=== PATIENT | female | born 1960 | race Caucasian/White ===

== ENCOUNTER 2021-12-04 23:34 | Inpatient (IN) | payer BC, SELFPAY ==
--- NOTE | ~2021-12-04 | XR_ITS ---
EXAMINATION: XR CHEST CLINICAL INFORMATION: Fever COMPARISON: None TECHNIQUE: Frontal view of the chest was obtained. FINDINGS: Lung volumes are symmetric. No focal consolidation is seen. No evidence of pneumothorax, pleural effusion, or pulmonary edema. The cardiomediastinal contour is unremarkable. Degenerative changes are noted in the spine. XR/XR chest 1V IMPRESSION: No acute cardiopulmonary findings.
[2021-12-04 21:47] VITALS: BP 138/67; BP 152/86; PULSE 135; PULSE 140; RESP 28; TEMP 40.2; O2SAT 92; O2SAT 95; BMI 30.4
--- NOTE | 2021-12-04 21:54 | ED_ITS ---
HPI - General Adult General Chief complaint: Fever Stated complaint: nausea, weakness, fever Time Seen by Provider: 12/04/21 21:45 Source: patient and EMS Mode of arrival: EMS Limitations: no limitations History of Present Illness HPI narrative: Patient comes to the emergency room via EMS from home. This weekend, patient was in [facility] and a team this morning, ate breakfast and was doing well until 4 hours ago. Patient started having fever, chills, vomiting. Patient denies URI or UTI symptoms, no abdominal pain, only nausea and 1 episode of vomiting, no diarrhea. Per EMS, the temporal temperature was 104 degrees F. patient states she is immunized for COVID-19. Patient complaining of nausea and chills. Denies headache, no neck pain Related Data Allergies Allergy/AdvReac Type Severity Reaction Status Date / Time No Known Allergies Allergy Verified 12/04/21 22:14 Review of Systems Review of Systems: Constitutional : No Weight loss, complaining of fever, chills, diaphoresis, fatigue and generalized malaise ENT/Mouth : No Hearing loss, No Ear Pain, No Nasal Congestion, No Sinus Pain, No Hoarseness, No sore throat, No Rhinorrhea, No Swallowing Difficulty Eyes: No Eye Pain, No Swelling, No Redness, No Foreign Body, No Discharge, No Vision Changes Cardiovascular : No Chest Pain, No SOB, No Dyspnea on Exertion, No Orthopnea, No Edema, No Palpitations Respiratory : No Cough, No Sputum, No Wheezing, No Smoke Exposure, No Dyspnea Gastrointestinal : Complaining of nausea and 1 episode of vomiting, No Diarrhea, No Constipation, No abdominal Pain, No Hematochezia, No Melena Genitourinary : no irregular bleeding, No Dysuria, No Urinary Frequency, No Hematuria, No Urinary Incontinence, No Urgency, No Flank Pain, No Urinary Flow Changes, No Hesitancy Musculoskeletal : No joint pain, No Myalgias, No Joint Swelling Skin : No Skin Lesions, No rash Neuro : No Weakness, No Numbness, No Paresthesias, No Loss of Consciousness, No Dizziness, No Headache Psych : No Anxiety/Panic, No Depression, No SI/HI/AH/VH, No Social Issues, Heme/Lymph: No Bruising, No Bleeding,No Lymphadenopathy Endocrine : No Polyuria, No Polydipsia, No Temperature Intolerance [facility] Past Medical History Medical History (Updated 12/04/21 @ 23:26 by Tata Paulino MD) Hypertension Physical Exam ED Vital Signs: Vital Signs - 24 hr 12/04/21 21:47 12/04/21 22:15 12/04/21 22:40 Temperature 104.4 F H 105.1 F H Pulse Rate 135 H 129 H Respiratory Rate 28 H 16 Blood Pressure 138/67 90/21 L Pulse Oximetry 92 97 Oxygen Delivery Method Room Air Room Air 12/04/21 23:03 Temperature Pulse Rate 125 H Respiratory Rate 18 Blood Pressure 103/41 L Pulse Oximetry 97 Oxygen Delivery Method Room Air BMI result Body Mass Index 30.4 Const Other: Appearance: Alert. Oriented X3. Seems uncomfortable, nauseous Eyes: Pupils equal, round and reactive to light. ENT: Pharynx normal. Neck: Normal inspection. Neck supple. No lymph nodes noted. No crepitus CVS: Normal heart rate and rhythm. Pulses normal. Normal S1 and S2 Respiratory: No respiratory distress. Breath sounds normal. No Wheezing. No rales Abdomen: Soft and nontender. No rigidity. No distention. Skin: Skin very warm to touch, clammy. Mildly pale,. Normal skin turgor. Extremities: No lower extremity edema. No Lacerations. No Rash Neuro: Oriented X 3. No motor deficit. No sensory deficit. Moving all extremities. No slurred speech. CN 2 through 12 grossly intact Psych: calm, cooperative, normal affect Course Course Course Narrative: At this time, we do not have any beds. We have started all the workup in the hallway, all the labs and imaging pending. Unable to obtain rectal temperature at this time. Patient received IV fluids 600 mL and Zofran by EMS, patient is getting fluid now. Patient getting Compazine here. At this time, so her infection is unclear, may be viral. We don't have vitals yet Patient lactic acid secondary to dehydration, vomiting. At this time, antibiotics are not indicated, patient known to have COVID-19. Patient has had a rectal temperature of 105.1 degrees, patient currently has ice packs in the axilla, groin and has a cooling blanket on. Patient was given a dose of rectal Tylenol and p.o. ibuprofen. Potassium was replaced p.o., patient receiving IV fluids. I discussed the patient with Dr. Adkins. Patient to be admitted Medical Decision Making Lab Data Result diagrams: 12/04/21 22:10 12/04/21 22:10 Labs: Lab Results 12/04/21 12/04/21 12/04/21 Range/Units 22:10 22:10 22:10 WBC 5.0 (4.8-10.8) X10*3/uL RBC 3.67 L (4.20-5.50) X10*6/uL Hgb 11.0 L (12.0-16.0) g/dl Hct 32.1 L (37.0-47.0) % MCV 87.5 (80.0-98.0) fL MCH 30.0 (27.0-33.0) pg MCHC 34.3 (31.0-35.0) g/dl RDW 12.3 (11.0-16.0) % Plt Count 318 (160-400) X10*3/uL MPV 8.6 L (9.4-12.3) fL Immature Gran % (Auto) 0.4 (0.0-0.4) % Neut % (Auto) 76.3 H (45-73) % Lymph % (Auto) 13.1 L (20-40) % [place] % (Auto) 7.0 (2-11) % Eos % (Auto) 2.6 (0-4) % Baso % (Auto) 0.6 (0-2) % Lymph # (Auto) 0.7 L (1.2-4.9) X10*3/uL [place] # (Auto) 0.4 (0.1-1.2) X10*3/uL Eos # (Auto) 0.1 (0.0-0.4) X10*3/uL Baso # (Auto) 0.0 (0.0-0.2) X10*3/uL Abs Immat Gran (auto) 0.02 (0.00-0.03) X10*3/uL Absolute Neuts (auto) 3.8 (2.0-8.3) x10*3/uL Absolute Nucleated RBC 0.000 (0.0-0.012) X10*3/uL Nucleated RBC % (auto) 0.0 (0.0-0.2) /100WBC Sodium 134 L (135-145) mmol/L Potassium 3.2 L (3.3-5.1) mmol/L Chloride 99 (96-108) mmol/L Carbon Dioxide 24 (22-29) mmol/L Anion Gap 14 (12-20) BUN 20 H (9-16) mg/dL Creatinine 1.66 H (0.5-1.4) mg/dL Estim Creat Clear Calc 36.8 Estimated GFR 31 Random Glucose 107 (60-115) mg/dL Lactic Acid (0.5-2.0) mmol/L Calcium 9.4 (8.4-10.2) mg/dL Total Bilirubin 0.5 (0.0-1.0) mg/dL Direct Bilirubin 0.2 (0.0-0.5) mg/dL AST 25 (5-31) U/L ALT 19 (0-31) U/L Alkaline Phosphatase 55 (39-117) U/L Total Protein 6.8 (6.5-8.0) g/dL Albumin 4.3 (3.5-5.0) g/dL Urine Color Urine Appearance Urine pH (5.0-8.0) Ur Specific [place] (1.005-1.025) Urine Protein (NEG-TRACE) MG/DL Urine Glucose (UA) (NEG) MG/DL Urine Ketones (NEG) MG/DL Urine Blood (NEG) Urine Nitrite (NEG) Ur Leukocyte Esterase (NEG) COVID-19 ([facility]) Positive A (Negative) COVID-19 Clin Com See Note 12/04/21 12/04/21 Range/Units 22:11 22:48 WBC (4.8-10.8) X10*3/uL RBC (4.20-5.50) X10*6/uL Hgb (12.0-16.0) g/dl Hct (37.0-47.0) % MCV (80.0-98.0) fL MCH (27.0-33.0) pg MCHC (31.0-35.0) g/dl RDW (11.0-16.0) % Plt Count (160-400) X10*3/uL MPV (9.4-12.3) fL Immature Gran % (Auto) (0.0-0.4) % Neut % (Auto) (45-73) % Lymph % (Auto) (20-40) % [place] % (Auto) (2-11) % Eos % (Auto) (0-4) % Baso % (Auto) (0-2) % Lymph # (Auto) (1.2-4.9) X10*3/uL [place] # (Auto) (0.1-1.2) X10*3/uL Eos # (Auto) (0.0-0.4) X10*3/uL Baso # (Auto) (0.0-0.2) X10*3/uL Abs Immat Gran (auto) (0.00-0.03) X10*3/uL Absolute Neuts (auto) (2.0-8.3) x10*3/uL Absolute Nucleated RBC (0.0-0.012) X10*3/uL Nucleated RBC % (auto) (0.0-0.2) /100WBC Sodium (135-145) mmol/L Potassium (3.3-5.1) mmol/L Chloride (96-108) mmol/L Carbon Dioxide (22-29) mmol/L Anion Gap (12-20) BUN (9-16) mg/dL Creatinine (0.5-1.4) mg/dL Estim Creat Clear Calc Estimated GFR Random Glucose (60-115) mg/dL Lactic Acid 2.1 H* (0.5-2.0) mmol/L Calcium (8.4-10.2) mg/dL Total Bilirubin (0.0-1.0) mg/dL Direct Bilirubin (0.0-0.5) mg/dL AST (5-31) U/L ALT (0-31) U/L Alkaline Phosphatase (39-117) U/L Total Protein (6.5-8.0) g/dL Albumin (3.5-5.0) g/dL Urine Color YELLOW Urine Appearance CLEAR Urine pH 5.5 (5.0-8.0) Ur Specific [place] 1.020 (1.005-1.025) Urine Protein NEG (NEG-TRACE) MG/DL Urine Glucose (UA) NEG (NEG) MG/DL Urine Ketones NEG (NEG) MG/DL Urine Blood NEG (NEG) Urine Nitrite NEG (NEG) Ur Leukocyte Esterase NEG (NEG) COVID-19 ([facility]) (Negative) COVID-19 Clin Com Imaging Data Chest x-ray: Radiologist's impression: FINDINGS: Lung volumes are symmetric. No focal consolidation is seen. No evidence of pneumothorax, pleural effusion, or pulmonary edema. The cardiomediastinal contour is unremarkable. Degenerative changes are noted in the spine. XR/XR chest 1V IMPRESSION: No acute cardiopulmonary findings. Discharge Plan Discharge Clinical Impression: COVID-19, NORMAN (acute kidney injury), Acute hypokalemia Patient Disposition: Admitted As Inpatient
[2021-12-04] MEDS: 0.9 % Sodium Chloride 1,000 ML 999 ML IVCONT ×2 (22:14→23:29)
[2021-12-04 22:15] VITALS: TEMP 40.6
[2021-12-04 22:18] LABS: MANUAL DIFF FLAG NO
[2021-12-04 22:20] LABS: Basophils Percent Auto 0.6 % (0-2); Eosinophils Absolute Auto 0.1 X10*3/uL (0.0-0.4); Eosinophils Percent Auto 2.6 % (0-4); Hematocrit 32.1 % (37.0-47.0); Imm Gran Abs Auto 0.02 X10*3/uL (0.00-0.03); Imm Gran Pct Auto 0.4 % (0.0-0.4); Lymphocytes Absolute Auto 0.7 X10*3/uL (1.2-4.9); Lymphocytes Percent Auto 13.1 % (20-40); Mean Corpuscular HGB Conc 34.3 g/dl (31.0-35.0); Mean Corpuscular Volume 87.5 fL (80.0-98.0); Mean Platelet Volume 8.6 fL (9.4-12.3); Monocytes Absolute Auto 0.4 X10*3/uL (0.1-1.2); Neutrophils Absolute Auto 3.8 x10*3/uL (2.0-8.3); Neutrophils Percent Auto 76.3 % (45-73); Platelet Count 318 X10*3/uL (160-400); Red Blood Count 3.67 X10*6/uL (4.20-5.50); Red Cell Distribution Width 12.3 % (11.0-16.0)
[2021-12-04] MEDS: Prochlorperazine Edisylate 10 MG/2 ML VIAL IVPUSH (22:22)
[2021-12-04 22:28] LABS: COVID-19 Test Positive (Negative)
[2021-12-04 22:39] LABS: Alanine Aminotransferase 19 U/L (0-31); Albumin Level 4.3 g/dL (3.5-5.0); Alkaline Phosphatase 55 U/L (39-117); Anion Gap 14 (12-20); Aspartate Amino Transferase 25 U/L (5-31); Bilirubin Direct 0.2 mg/dL (0.0-0.5); Bilirubin Total 0.5 mg/dL (0.0-1.0); Blood Urea Nitrogen 20 mg/dL (9-16); Calcium 9.4 mg/dL (8.4-10.2); Carbon Dioxide 24 mmol/L (22-29); Chloride 99 mmol/L (96-108); Creatinine Clr Calc Pharmacy 36.8; Estimated Glomerular Filt Rate 31; Glucose Random 107 mg/dL (60-115); Potassium 3.2 mmol/L (3.3-5.1); Sodium 134 mmol/L (135-145); Total Protein 6.8 g/dL (6.5-8.0)
[2021-12-04 22:39] LABS: Lactic Acid 2.1 mmol/L (0.5-2.0)
[2021-12-04 22:40] VITALS: BP 90/21; PULSE 129; RESP 16; O2SAT 97
[2021-12-04] MEDS: Acetaminophen Supp 650 MG SUPP.RECT PR (22:53)
[2021-12-04] MEDS: Ibuprofen 600 MG TABLET PO (22:53)
[2021-12-04 23:03] VITALS: BP 103/41; PULSE 125; RESP 18; O2SAT 97
[2021-12-04 23:03] LABS: Appearance Urine CLEAR; Color Urine YELLOW; Glucose Urine UA NEG (NEG); Leukocyte Esterase Urine NEG (NEG); Nitrite Urine NEG (NEG); PH 5.5 (5.0-8.0); Urine Blood NEG (NEG); Urine Ketones NEG (NEG); Urine Protein NEG (NEG-TRACE)
--- NOTE | 2021-12-04 23:07 | PC.NURSE ---
Addendum entered by Katy Dawson 12/05/21 00:05: report given to SHON Mota Original Note: pt arrived alert and oriented from home via ambulace. pt medic, pt had sudden onset of chills, along with nausea and vomiting and fever. pt temp temp above 104. pt received 600ml of NS and 4mg of IVP zofran. pt started on second line. rectal temp of 105.1 Dr. Claudio jose, verbal order for cooling blanket. pt immediately started on continuos cardiac monitoring . ice pack applied to the groins
--- NOTE | 2021-12-04 23:22 | ECG_ITS ---
Test Reason : REPEAT Blood Pressure : / mmHG Vent. Rate : 125 BPM Atrial Rate : 000 BPM P-R Int : 000 ms QRS Dur : 080 ms QT Int : 412 ms P-R-T Axes : 000 078 059 degrees QTc Int : 594 ms Sinus tachycardia Nonspecific ST and T wave abnormality Abnormal ECG No previous ECGs available Referred By: Tata Paulino Electronically Signed By:LONNIE DELGADILLO MD
[2021-12-05 00:16] LABS: Reflex Lactate? Lactic Acid Added
[2021-12-05 01:55] LABS: ~Lactic Acid-LAB USE ONLY 0.7 mmol/L (0.5-2.0)
--- NOTE | 2021-12-05 06:40 | PM.IMHP ---
History of Present Illness Date of Service: 12/05/21 Chief Complaint: weakness, chills This is a 61-year-old female with past medical history of hypertension presents to the hospital with complaints of chills, weakness, along with nausea vomiting and fever that started about a day ago. Patient is significantly weak, she is slightly confused although able to answer questions appropriately. Patient reports she had sudden onset shivering and chills. Patient reports being vaccinated against COVID-19. Patient denies any chest pain, no shortness of breath, no cough, no abdominal pain, no diarrhea or constipation, no urinary symptoms and no lower extremity edema. On arrival to the ED patient found to have a temperature of 104.4 that spiked to 105.1, heart rate of 135 sinus, respiratory rate of 28 , patient was also found to be hypertensive with a blood pressure of 90/21 satting 97% on room air Labs are significant for WBC count 5.0, hemoglobin of 11, hematocrit 32, sodium of 134, potassium 3.2, creatinine of 1.66 with no baseline for comparison, lactic acid of 2.1, COVID-19 positive. Chest x-ray shows no acute cardiopulmonary findings Patient will be admitted for further management Review of Systems Review of Systems: Yes all other systems are reviewed and are negative [facility] Medical History (Updated 12/05/21 @ 06:45 by Chandrika Adkins MD) Hypertension Family History (Updated 12/05/21 @ 06:44 by Chandrika Adkins MD) Other No family history of coronary artery disease Surgical History (Updated 12/05/21 @ 06:44 by Chandrika Adkins MD) No pertinent past surgical history Social History Advance Directives: No Advance Directives Information Provided: Yes Meds Allergies Allergy/AdvReac Type Severity Reaction Status Date / Time No Known Allergies Allergy Verified 12/04/21 22:14 Active Medications: Current Medications Acetaminophen (Acetaminophen 325 Mg Tablet) 650 mg PO Q6H PRN PRN Reason: Pain, Mild (Pain Scale 1-3) Docusate Sodium (Docusate Sodium 100 Mg Capsule) 100 mg PO DAILY PRN PRN Reason: Constipation Enoxaparin Sodium (Enoxaparin Sodium 40 Mg/0.4 Ml Syringe) 40 mg SUBCUT Q24H EK[facility] Ondansetron HCl (Ondansetron Hcl 4 Mg/2 Ml Vial) 4 mg IVPUSH Q8H PRN PRN Reason: Nausea and Vomiting Sodium Chloride (0.9 % Sodium Chloride Flush 3 Ml Syringe) 3 ml IVFLUSH QSHIFT EK[facility] Physical Exam Vital Signs and Narrative: Vital Signs: Last Vital Signs Temp 105.1 F H 12/04/21 22:15 Pulse 125 H 12/04/21 23:03 Resp 18 12/04/21 23:03 BP 103/41 L 12/04/21 23:03 Pulse Ox 97 12/04/21 23:03 O2 Del Method 12/04/21 23:03 BMI result Body Mass Index 30.4 Const: Other: Patient attempted to get out of bed to use the bathroom but was unable to due to significant weakness. General: cooperative and no acute distress Eyes: General: appearance normal, both eyes and all related structures Resp: Effort & Inspection: normal respiratory effort Auscultation: clear to auscultation bilaterally Cardio: Rate: regular rate Rhythm: regular rhythm GI: Palpation (GI): Soft to palpation Auscultation: normal bowel sounds Skin: General skin exam: no rashes or lesions noted Extrem: General: Yes normal to inspection and Yes no pedal edema Results Labs CBC and Chem 7: 12/04/21 22:10 12/04/21 22:10 Labs: Laboratory Results - last 24 hr 12/04/21 12/04/21 12/04/21 22:10 22:10 22:10 MCV 87.5 MCH 30.0 MCHC 34.3 RDW 12.3 Plt Count 318 MPV 8.6 L Immature Gran % (Auto) 0.4 Neut % (Auto) 76.3 H Lymph % (Auto) 13.1 L [place] % (Auto) 7.0 Eos % (Auto) 2.6 Baso % (Auto) 0.6 Lymph # (Auto) 0.7 L [place] # (Auto) 0.4 Eos # (Auto) 0.1 Baso # (Auto) 0.0 Abs Immat Gran (auto) 0.02 Absolute Neuts (auto) 3.8 Absolute Nucleated RBC 0.000 Nucleated RBC % (auto) 0.0 Anion Gap 14 Estim Creat Clear Calc 36.8 Estimated GFR 31 Random Glucose 107 Lactic Acid Lactic Acid F/U @ 2Hr Calcium 9.4 Total Bilirubin 0.5 Direct Bilirubin 0.2 AST 25 ALT 19 Alkaline Phosphatase 55 Total Protein 6.8 Albumin 4.3 Urine Color Urine Appearance Urine pH Ur Specific [place] Urine Protein Urine Glucose (UA) Urine Ketones Urine Blood Urine Nitrite Ur Leukocyte Esterase COVID-19 ([facility]) Positive A COVID-19 Clin Com See Note 12/04/21 12/04/21 12/05/21 22:11 22:48 01:37 MCV MCH MCHC RDW Plt Count MPV Immature Gran % (Auto) Neut % (Auto) Lymph % (Auto) [place] % (Auto) Eos % (Auto) Baso % (Auto) Lymph # (Auto) [place] # (Auto) Eos # (Auto) Baso # (Auto) Abs Immat Gran (auto) Absolute Neuts (auto) Absolute Nucleated RBC Nucleated RBC % (auto) Anion Gap Estim Creat Clear Calc Estimated GFR Random Glucose Lactic Acid 2.1 H* Lactic Acid F/U @ 2Hr 0.7 Calcium Total Bilirubin Direct Bilirubin AST ALT Alkaline Phosphatase Total Protein Albumin Urine Color YELLOW Urine Appearance CLEAR Urine pH 5.5 Ur Specific [place] 1.020 Urine Protein NEG Urine Glucose (UA) NEG Urine Ketones NEG Urine Blood NEG Urine Nitrite NEG Ur Leukocyte Esterase NEG COVID-19 ([facility]IS) COVID-19 Clin Com Imaging Radiologist's Impressions: Impressions Chest X-Ray 12/04/21 23:14 IMPRESSION: No acute cardiopulmonary findings. Assessment and Plan (1) Sepsis: Status: Acute (2) COVID-19: Status: Acute (3) NORMAN (acute kidney injury): Status: Acute (4) Acute hypokalemia: Status: Acute Plan 61-year-old female who presents to the hospital with tachycardia, tachypnea, as well as fever found to have sepsis secondary to COVID-19 infection # sepsis - febrile, leukocytosis, tachycardia, tachypnea - secondary to COVID-19 infection - has no other source of infection at this time, with chest x-ray being negative, UA negative - will consult Infectious Disease for remdesivir consideration # COVID-19 infection - no hypoxia, no chest x-ray evidence of infiltrate - supportive care at this time, pending infectious disease consult for possible Redmesivir # NORMAN - likely secondary to dehydration - IVF - daily BMP BMP # acute hyperkalemia - repleted - follow labs DVT prophylaxis: Lovenox Given the severity of symptoms, and sepsis patient will require minimal 2 night hospital stay for further management Quality Stroke Does the patient have a stroke diagnosis?: No VTE Prior VTE?: No VTE Risk Level:: Medical - moderate - high VTE Device Contraindication: N/A - Device Ordered VTE Drug Contraindication: N/A - Med Ordered
--- NOTE | 2021-12-05 09:37 | PHA.MEDREC ---
Pharmacy Consult ? Medication Reconciliation Pharmacy has completed the medication reconciliation. Spoke with patient . patient is no longer on lisinopril for BP only chlorthalidone because BP has been low
[2021-12-05 10:00] VITALS: BP 122/73; PULSE 82; RESP 20; TEMP 37; O2SAT 100
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
[2021-12-05 11:59] LABS: MANUAL DIFF FLAG NO
[2021-12-05 12:00] LABS: Eosinophils Percent Auto 1.4 % (0-4); Hematocrit 28.4 % (37.0-47.0); Hemoglobin 9.7 g/dl (12.0-16.0); Imm Gran Abs Auto 0.01 X10*3/uL (0.00-0.03); Imm Gran Pct Auto 0.3 % (0.0-0.4); Lymphocytes Absolute Auto 0.6 X10*3/uL (1.2-4.9); Lymphocytes Percent Auto 21.7 % (20-40); Mean Corpuscular HGB Conc 34.2 g/dl (31.0-35.0); Mean Corpuscular Hemoglobin 30.3 pg (27.0-33.0); Mean Corpuscular Volume 88.8 fL (80.0-98.0); Mean Platelet Volume 8.6 fL (9.4-12.3); Monocytes Absolute Auto 0.4 X10*3/uL (0.1-1.2); Monocytes Percent Auto 13.1 % (2-11); Neutrophils Absolute Auto 1.8 x10*3/uL (2.0-8.3); Neutrophils Percent Auto 62.5 % (45-73); Platelet Count 260 X10*3/uL (160-400); Red Cell Distribution Width 12.5 % (11.0-16.0); White Blood Count 2.9 X10*3/uL (4.8-10.8)
[2021-12-05 12:18] LABS: Anion Gap 14 (12-20); Blood Urea Nitrogen 19 mg/dL (9-16); Calcium 8.4 mg/dL (8.4-10.2); Carbon Dioxide 22 mmol/L (22-29); Chloride 102 mmol/L (96-108); Creatinine Clr Calc Pharmacy 43.7; Estimated Glomerular Filt Rate 38; Glucose Random 84 mg/dL (60-115); Potassium 3.6 mmol/L (3.3-5.1); Sodium 134 mmol/L (135-145)
[2021-12-05] MEDS: Lactated Ringers 1,000 ML 100 ML IVCONT ×2 (13:01→16:41)
--- NOTE | 2021-12-05 13:24 | MHC.CM.PN ---
Patient is Covid (+); CM spoke with /HCP/Robby @ [phone].Patient lives in a house with her and she uses a cane to assist with mobility. Home/no services is the goal and CM has initiated and will follow for dc planning.Patient has received Moderna/Covid vax X2 and her PCP is Dr. Parminder Weiner through [facility].
[2021-12-05 16:21] VITALS: BP 142/71; PULSE 85; RESP 18; TEMP 37.2; O2SAT 98
--- NOTE | 2021-12-05 16:38 | PC.NURSE ---
Pt remains A&Ox4, VSS, OOB to commode with no assistance. Offed no complaints of pain at this time. Snack provided, diarrhea remains active at this time. LR running. Call patel within reach. Will continue to monitor.
--- NOTE | 2021-12-05 17:38 | HO.PM.IMPN ---
Subjective Subjective Date of Service: 12/06/21 Interval History: f/u on NORMAN, covid 19 interval history: improving, no hypoxia Review of Systems no sob no feve no cough Physical Exam Vital Signs: Vital Signs: Last Vital Signs Temp 98.9 F 12/05/21 16:21 Pulse 85 12/05/21 16:21 Resp 18 12/05/21 16:21 BP 142/71 H 12/05/21 16:21 Pulse Ox 98 12/05/21 16:21 O2 Del Method 12/05/21 16:21 BMI result Body Mass Index 30.4 Const: Other: General: AO X 3, no acute distress Resp: CTA bilateral CVS: S1,S2,RRR GI: +BS, NT, no distention Skin: No rash Neuro: motor grossly intact Psych: appropriate affect Objective Data Active Medications Acetaminophen (Acetaminophen 325 Mg Tablet) 650 mg PO Q6H PRN PRN Reason: Pain, Mild (Pain Scale 1-3) Docusate Sodium (Docusate Sodium 100 Mg Capsule) 100 mg PO DAILY PRN PRN Reason: Constipation Enoxaparin Sodium (Enoxaparin Sodium 40 Mg/0.4 Ml Syringe) 40 mg SUBCUT Q24H [facility] Last Admin: 12/05/21 13:01 Dose: Not Given Documented By: BLAZE Non-Admin Reason: Assumed care 12/05 0700 Lactated Ringer's (Lr) 1,000 mls @ 100 mls/hr IVCONT .Q10H [facility] Last Admin: 12/05/21 16:41 Dose: 100 mls/hr Documented By: BLAZE Ondansetron HCl (Ondansetron Hcl 4 Mg/2 Ml Vial) 4 mg IVPUSH Q8H PRN PRN Reason: Nausea and Vomiting Sodium Chloride (0.9 % Sodium Chloride Flush 3 Ml Syringe) 3 ml IVFLUSH QSHIFT [facility] Last Admin: 12/05/21 16:41 Dose: Not Given Documented By: BLAZE Non-Admin Reason: IV Running Labs CBC & Chem 7: 12/05/21 11:54 12/06/21 17:09 Labs: Laboratory Results - last 24 hr 12/04/21 12/04/21 12/04/21 22:10 22:10 22:10 MCV 87.5 MCH 30.0 MCHC 34.3 RDW 12.3 Plt Count 318 MPV 8.6 L Immature Gran % (Auto) 0.4 Neut % (Auto) 76.3 H Lymph % (Auto) 13.1 L [place] % (Auto) 7.0 Eos % (Auto) 2.6 Baso % (Auto) 0.6 Lymph # (Auto) 0.7 L [place] # (Auto) 0.4 Eos # (Auto) 0.1 Baso # (Auto) 0.0 Abs Immat Gran (auto) 0.02 Absolute Neuts (auto) 3.8 Absolute Nucleated RBC 0.000 Nucleated RBC % (auto) 0.0 Anion Gap 14 Estim Creat Clear Calc 36.8 Estimated GFR 31 Random Glucose 107 Lactic Acid Lactic Acid F/U @ 2Hr Calcium 9.4 Total Bilirubin 0.5 Direct Bilirubin 0.2 AST 25 ALT 19 Alkaline Phosphatase 55 Total Protein 6.8 Albumin 4.3 Urine Color Urine Appearance Urine pH Ur Specific [place] Urine Protein Urine Glucose (UA) Urine Ketones Urine Blood Urine Nitrite Ur Leukocyte Esterase COVID-19 ([facility]) Positive A COVID-19 Clin Com See Note 12/04/21 12/04/21 12/05/21 22:11 22:48 01:37 MCV MCH MCHC RDW Plt Count MPV Immature Gran % (Auto) Neut % (Auto) Lymph % (Auto) [place] % (Auto) Eos % (Auto) Baso % (Auto) Lymph # (Auto) [place] # (Auto) Eos # (Auto) Baso # (Auto) Abs Immat Gran (auto) Absolute Neuts (auto) Absolute Nucleated RBC Nucleated RBC % (auto) Anion Gap Estim Creat Clear Calc Estimated GFR Random Glucose Lactic Acid 2.1 H* Lactic Acid F/U @ 2Hr 0.7 Calcium Total Bilirubin Direct Bilirubin AST ALT Alkaline Phosphatase Total Protein Albumin Urine Color YELLOW Urine Appearance CLEAR Urine pH 5.5 Ur Specific [place] 1.020 Urine Protein NEG Urine Glucose (UA) NEG Urine Ketones NEG Urine Blood NEG Urine Nitrite NEG Ur Leukocyte Esterase NEG COVID-19 ([facility]) COVID-19 Clin Com 12/05/21 12/05/21 11:54 11:54 MCV 88.8 MCH 30.3 MCHC 34.2 RDW 12.5 Plt Count 260 MPV 8.6 L Immature Gran % (Auto) 0.3 Neut % (Auto) 62.5 Lymph % (Auto) 21.7 [place] % (Auto) 13.1 H Eos % (Auto) 1.4 Baso % (Auto) 1.0 Lymph # (Auto) 0.6 L [place] # (Auto) 0.4 Eos # (Auto) 0.0 Baso # (Auto) 0.0 Abs Immat Gran (auto) 0.01 Absolute Neuts (auto) 1.8 L Absolute Nucleated RBC 0.000 Nucleated RBC % (auto) 0.0 Anion Gap 14 Estim Creat Clear Calc 43.7 Estimated GFR 38 Random Glucose 84 Lactic Acid Lactic Acid F/U @ 2Hr Calcium 8.4 D Total Bilirubin Direct Bilirubin AST ALT Alkaline Phosphatase Total Protein Albumin Urine Color Urine Appearance Urine pH Ur Specific [place] Urine Protein Urine Glucose (UA) Urine Ketones Urine Blood Urine Nitrite Ur Leukocyte Esterase COVID-19 ([facility]) COVID-19 Clin Com Assessment and Plan (1) Sepsis: Status: Acute (2) COVID-19: Status: Acute (3) NORMAN (acute kidney injury): Status: Acute Plan 61-year-old female who presents to the hospital with tachycardia, tachypnea, as well as fever found to have sepsis secondary to COVID-19 infection # viral sepsis d/t covid - febrile, leukocytosis, tachycardia, tachypnea - secondary to COVID-19 infection - has no other source of infection at this time, with chest x-ray being negative, UA negative - will consult Infectious Disease for remdesivir consideration # COVID-19 infection--O2 sat 98 on room air - no hypoxia, no chest x-ray evidence of infiltrate -no indication for steroid or Remdesevir at this time # NORMAN--resolving - likely secondary to dehydration - IVF - daily BMP BMP # Acute hypOkalemia - repleted - follow labs DVT prophylaxis: Lovenox Need for inpatient: NORMAN needing IVF Quality Stroke Does the patient have a stroke diagnosis?: No VTE Prior VTE?: No VTE Risk Level:: Medical - moderate - high VTE Device Contraindication: N/A - Device Ordered VTE Drug Contraindication: N/A - Med Ordered
[2021-12-05] MEDS: Acetaminophen 325 MG TABLET 650 MG PO (20:16)
[2021-12-05 20:17] VITALS: BP 145/81; PULSE 92; RESP 18; TEMP 37.2; O2SAT 98
[2021-12-05] MEDS: Enoxaparin Sodium 40 MG/0.4 ML SYRINGE SUBCUT (23:55)
[2021-12-06] MEDS: Lactated Ringers 1,000 ML 100 ML IVCONT (02:50)
[2021-12-06] MEDS: Acetaminophen 325 MG TABLET 650 MG PO ×3 (02:58→19:17)
[2021-12-06 05:07] LABS: Anion Gap 13 (12-20); Blood Urea Nitrogen 17 mg/dL (9-16); Calcium 8.3 mg/dL (8.4-10.2); Carbon Dioxide 22 mmol/L (22-29); Chloride 98 mmol/L (96-108); Creatinine Clr Calc Pharmacy 52.7; Estimated Glomerular Filt Rate 47; Glucose Random 72 mg/dL (60-115); Potassium 3.6 mmol/L (3.3-5.1); Sodium 129 mmol/L (135-145)
[2021-12-06 05:14] VITALS: BP 131/66; PULSE 80; RESP 16; TEMP 37.6; O2SAT 99
[2021-12-06 07:07] VITALS: BP 147/70; PULSE 82; RESP 14; TEMP 36.9; O2SAT 98
--- NOTE | 2021-12-06 09:24 | PC.NURSE ---
pt ambulatory to the bedside commode, she continues to have diarrhea, moderate amount, she is taking po intake, and is able to sit at bedside for breakfast. dr reynolds at the bedside to review care plan and discharge planning
[2021-12-06 13:14] VITALS: BP 153/83; PULSE 87; RESP 16; TEMP 37.7; O2SAT 98
--- NOTE | 2021-12-06 15:17 | P.CNID_ITS ---
History of Present Illness Data of Consult Service Date: 12/06/21 Requesting physician: Jim Saravia Primary Care Provider: Unknown Physician HPI Reason for consult: sepsis,COVID She presents with four days fever and chills,nausea,vomiting. She was at [facility] over the weekend. She has positive COVID testing. She has negative CXR. She has no VTE. Review of Systems Review of Systems: Yes all other systems are reviewed and are negative [facility] Past Medical History Medical History Hypertension Family History Family History Other No family history of coronary artery disease Family history: reviewed and not pertinent Surgical History Surgical History No pertinent past surgical history Social History Social History Advance Directives: No Advance Directives Information Provided: Yes service: No Current occupational status: retired [employer] Allergies Allergy/AdvReac Type Severity Reaction Status Date / Time No Known Allergies Allergy Verified 12/04/21 22:14 Active Medications: Current Medications Acetaminophen (Acetaminophen 325 Mg Tablet) 650 mg PO Q6H PRN PRN Reason: Pain, Mild (Pain Scale 1-3) Last Admin: 12/06/21 13:13 Dose: 650 mg Docusate Sodium (Docusate Sodium 100 Mg Capsule) 100 mg PO DAILY PRN PRN Reason: Constipation Enoxaparin Sodium (Enoxaparin Sodium 40 Mg/0.4 Ml Syringe) 40 mg SUBCUT Q24H [facility] Last Admin: 12/05/21 23:55 Dose: 40 mg Ondansetron HCl (Ondansetron Hcl 4 Mg/2 Ml Vial) 4 mg IVPUSH Q8H PRN PRN Reason: Nausea and Vomiting Sodium Chloride (0.9 % Sodium Chloride Flush 3 Ml Syringe) 3 ml IVFLUSH QSHIFT [facility] Last Admin: 12/06/21 08:31 Dose: Not Given Home Medications Medication Instructions Recorded Confirmed Last Taken Type albuterol sulfate 90 mcg/actuation 2 puff inhalation Q4-6H PRN 12/05/21 12/05/21 Unknown History aerosol inhaler (ProAir HFA) Shortness Of Breath chlorthalidone 25 mg tablet 1 tab PO DAILY 12/05/21 12/05/21 12/04/21 History cholecalciferol (vitamin D3) 25 25 mcg PO DAILY 12/05/21 12/05/21 12/04/21 History mcg (1,000 unit) tablet cyanocobalamin (vitamin B-12) 1,000 mcg PO DAILY 12/05/21 12/05/21 12/04/21 History 1,000 mcg tablet lorazepam 0.5 mg tablet 1 tab PO DAILY PRN Anxiety 12/05/21 12/05/21 Unknown History multivitamin 1 tab PO DAILY 12/05/21 12/05/21 12/04/21 History turmeric root extract 500 mg 500 mg PO DAILY 12/05/21 12/05/21 12/04/21 History capsule Physical Exam Vital Signs: Vital Signs: Last Vital Signs Temp 99.8 F 12/06/21 13:14 Pulse 87 12/06/21 13:14 Resp 16 12/06/21 13:14 BP 153/83 H 12/06/21 13:14 Pulse Ox 98 12/06/21 13:14 O2 Del Method 12/06/21 13:14 BMI result Body Mass Index 30.4 Const: General: cooperative Eyes: General: appearance normal, both eyes and all related structures Resp: Effort & Inspection: normal respiratory effort Cardio: Rate: regular rate Rhythm: regular rhythm GI: Palpation (GI): nontender Extrem: General: Yes normal to inspection Results Labs CBC & Chem 7: 12/05/21 11:54 12/06/21 04:10 Labs: BMP 12/06/21 04:10 Sodium 129 L Potassium 3.6 Chloride 98 Carbon Dioxide 22 BUN 17 H Creatinine 1.16 Calcium 8.3 L Microbiology Microbiology Results: Microbiology 12/05/21 01:37 Blood - Venous Blood Culture - Preliminary No growth after 24 hours. 12/05/21 01:37 Blood - Venous Blood Culture - Preliminary No growth after 24 hours. 12/04/21 23:26 Blood - Venous Blood Culture - Preliminary No growth after 24 hours. 12/04/21 22:10 Blood - Venous Blood Culture - Preliminary No growth after 24 hours. Assessment and Plan (1) Sepsis: Status: Acute sepsis due to primarily GI symptoms of acute COVID. There is no hypoxia or lung symptoms (2) COVID-19: Status: Acute Plan Supportive care No Remdesivir or Dexamethaone No antibiotics No Paxlovid as probably vomiting after it.
--- NOTE | 2021-12-06 16:52 | PC.NURSE ---
PT HAS HAD NO EPISODES OF DIARRHEA SINCE THIS MORNING. PT RISING TO COMMODE INDEPENDENTLY WITH NO ISSUE. RESP EVEN, NONLABOURED. VSS. C/O SORE THROAT.
[2021-12-06 17:37] LABS: Anion Gap 13 (12-20); Carbon Dioxide 23 mmol/L (22-29); Chloride 94 mmol/L (96-108); Potassium 3.4 mmol/L (3.3-5.1); Sodium 127 mmol/L (135-145)
--- NOTE | 2021-12-06 17:56 | P.PNIM_ITS ---
Subjective Subjective Date of Service: 12/07/21 Interval History: f/u on [facility]MAN, covid 19 interval history: Has diarrhea, otherwise feel better, sodium is dropong at 127 now Review of Systems no sob no feve no cough Physical Exam Vital Signs: Vital Signs: Last Vital Signs Temp 99.8 F 12/06/21 13:14 Pulse 87 12/06/21 13:14 Resp 16 12/06/21 13:14 BP 153/83 H 12/06/21 13:14 Pulse Ox 98 12/06/21 13:14 O2 Del Method 12/06/21 13:14 BMI result Body Mass Index 30.4 Const: Other: General: AO X 3, no acute distress Resp: CTA bilateral CVS: S1,S2,RRR GI: +BS, NT, no distention Skin: No rash Neuro: motor grossly intact Psych: appropriate affect Objective Data Active Medications Acetaminophen (Acetaminophen 325 Mg Tablet) 650 mg PO Q6H PRN PRN Reason: Pain, Mild (Pain Scale 1-3) Last Admin: 12/06/21 13:13 Dose: 650 mg Documented By: REYNA Docusate Sodium (Docusate Sodium 100 Mg Capsule) 100 mg PO DAILY PRN PRN Reason: Constipation Enoxaparin Sodium (Enoxaparin Sodium 40 Mg/0.4 Ml Syringe) 40 mg SUBCUT Q24H [facility] Last Admin: 12/05/21 23:55 Dose: 40 mg Documented By: KAY Ondansetron HCl (Ondansetron Hcl 4 Mg/2 Ml Vial) 4 mg IVPUSH Q8H PRN PRN Reason: Nausea and Vomiting Sodium Chloride (0.9 % Sodium Chloride Flush 3 Ml Syringe) 3 ml IVFLUSH QSHIFT [facility] Last Admin: 12/06/21 08:31 Dose: Not Given Documented By: MINDI Non-Admin Reason: IV Running Labs CBC & Chem 7: 12/05/21 11:54 12/06/21 17:09 Labs: Laboratory Results - last 24 hr 12/06/21 12/06/21 04:10 17:09 Anion Gap 13 13 Estim Creat Clear Calc 52.7 Estimated GFR 47 Random Glucose 72 Calcium 8.3 L Microbiology Microbiology Results: Microbiology 12/05/21 01:37 Blood Culture - Preliminary Blood - Venous No growth after 24 hours. 12/05/21 01:37 Blood Culture - Preliminary Blood - Venous No growth after 24 hours. 12/04/21 23:26 Blood Culture - Preliminary Blood - Venous No growth after 24 hours. 12/04/21 22:10 Blood Culture - Preliminary Blood - Venous No growth after 24 hours. Assessment and Plan (1) Sepsis: Status: Acute (2) COVID-19: Status: Acute (3) NORMAN (acute kidney injury): Status: Acute (4) Acute hypokalemia: Status: Acute Plan 61-year-old female who presents to the hospital with tachycardia, tachypnea, as well as fever found to have sepsis secondary to COVID-19 infection # viral sepsis d/t covid -clinically resolved - secondary to COVID-19 infection - has no other source of infection at this time, with chest x-ray being negative, UA negative # COVID-19 infection--O2 sat 98 on room air - no hypoxia, no chest x-ray evidence of infiltrate -no indication for steroid or Remdesevir at this time # NORMAN--resolved - likely secondary to dehydration - IVF - daily BMP BMP # Acute hypOkalemia - repleted - follow labs #Diarrhea--from covid and is getting better #HypOnatremia, acute on chronic--likely hypovolemia, including diarrhea related. DVT prophylaxis: Lovenox Need for inpatient: [facility] needing IVF Quality Stroke Does the patient have a stroke diagnosis?: No VTE Prior VTE?: No VTE Risk Level:: Medical - moderate - high VTE Device Contraindication: N/A - Device Ordered VTE Drug Contraindication: N/A - Med Ordered
[2021-12-06 19:12] VITALS: BP 147/66; PULSE 85; RESP 16; TEMP 37.2; O2SAT 98
[2021-12-06] MEDS: 0.9 % Sodium Chloride Flush 3 ML SYRINGE IVFLUSH (19:14)
[2021-12-06] MEDS: 0.9 % Sodium Chloride 1,000 ML 100 ML IVCONT (19:14)
[2021-12-07] MEDS: HYDROmorphone HCl 0.5 MG/0.5 ML SYRINGE IVPUSH (00:12)
[2021-12-07] MEDS: Enoxaparin Sodium 40 MG/0.4 ML SYRINGE SUBCUT ×2 (00:12→22:34)
[2021-12-07 00:14] VITALS: BP 158/56; PULSE 87; RESP 18; TEMP 37.6; O2SAT 93
[2021-12-07 01:42] VITALS: BP 148/73; PULSE 85; O2SAT 100
--- NOTE | 2021-12-07 01:44 | PC.NURSE ---
RECORDED PT'S VITALS, EMPTIED COMMODE, ASSISTED PT WITH RESTROOM. PER NURSE
[2021-12-07] MEDS: 0.9 % Sodium Chloride 1,000 ML 100 ML IVCONT ×2 (05:31→14:16)
[2021-12-07 07:08] VITALS: BP 123/56; PULSE 85; RESP 98; TEMP 37.8; O2SAT 98
[2021-12-07 07:21] LABS: Blood Urea Nitrogen 15 mg/dL (9-16); Calcium 7.6 mg/dL (8.4-10.2); Creatinine Clr Calc Pharmacy 58.8; Estimated Glomerular Filt Rate 54; Glucose Random 65 mg/dL (60-115)
[2021-12-07 07:28] LABS: Anion Gap 15 (12-20); Carbon Dioxide 21 mmol/L (22-29); Chloride 92 mmol/L (96-108); Potassium 3.5 mmol/L (3.3-5.1); Sodium 124 mmol/L (135-145)
--- NOTE | 2021-12-07 11:00 | HO.PM.IMPN ---
Subjective Subjective Date of Service: 12/07/21 Interval History: f/u on [facility]MAN, covid 19 interval history: No diarrhea, feels better, sodium is dropong at 124 now Review of Systems no sob no feve no cough Physical Exam Vital Signs: Vital Signs: Last Vital Signs Temp 100.1 F 12/07/21 07:08 Pulse 85 12/07/21 07:08 Resp 98 H 12/07/21 07:08 BP 123/56 L 12/07/21 07:08 Pulse Ox 98 12/07/21 07:08 O2 Del Method CPAP 12/07/21 07:08 O2 Flow Rate 2 12/07/21 07:08 BMI result Body Mass Index 30.4 Const: Other: General: AO X 3, no acute distress Resp: CTA bilateral CVS: S1,S2,RRR GI: +BS, NT, no distention Skin: No rash Neuro: motor grossly intact Psych: appropriate affect Objective Data Active Medications Acetaminophen (Acetaminophen 325 Mg Tablet) 650 mg PO Q6H PRN PRN Reason: Pain, Mild (Pain Scale 1-3) Last Admin: 12/06/21 19:17 Dose: 650 mg Documented By: REYNA Docusate Sodium (Docusate Sodium 100 Mg Capsule) 100 mg PO DAILY PRN PRN Reason: Constipation Enoxaparin Sodium (Enoxaparin Sodium 40 Mg/0.4 Ml Syringe) 40 mg SUBCUT Q24H [facility] Last Admin: 12/07/21 00:12 Dose: 40 mg Documented By: ALEX Hydromorphone HCl (Hydromorphone Hcl 0.5 Mg/0.5 Ml Syringe) 0.5 mg IVPUSH Q4H PRN; Protocol PRN Reason: Breakthrough Pain Last Admin: 12/07/21 00:12 Dose: 0.5 mg Documented By: ALEX Sodium Chloride (Ns) 1,000 mls @ 100 mls/hr IVCONT .Q10H [facility] Last Admin: 12/07/21 05:31 Dose: 100 mls/hr Documented By: LUZ MARIA Ondansetron HCl (Ondansetron Hcl 4 Mg/2 Ml Vial) 4 mg IVPUSH Q8H PRN PRN Reason: Nausea and Vomiting Sodium Chloride (0.9 % Sodium Chloride Flush 3 Ml Syringe) 3 ml IVFLUSH QSHIFT [facility] Last Admin: 12/07/21 09:52 Dose: Not Given Documented By: VANE Non-Admin Reason: IV Running Labs CBC & Chem 7: 12/05/21 11:54 12/07/21 06:03 Labs: Laboratory Results - last 24 hr 12/06/21 12/07/21 17:09 06:03 Anion Gap 13 15 Estim Creat Clear Calc 58.8 Estimated GFR 54 Random Glucose 65 Calcium 7.6 L D Microbiology Microbiology Results: Microbiology 12/05/21 01:37 Blood Culture - Preliminary Blood - Venous No growth after 48 hours. 12/05/21 01:37 Blood Culture - Preliminary Blood - Venous No growth after 48 hours. 12/04/21 23:26 Blood Culture - Preliminary Blood - Venous No growth after 48 hours. 12/04/21 22:10 Blood Culture - Preliminary Blood - Venous No growth after 48 hours. Assessment and Plan (1) Sepsis: Status: Acute (2) COVID-19: Status: Acute (3) NORMAN (acute kidney injury): Status: Acute (4) Acute hypokalemia: Status: Acute Plan 61-year-old female who presents to the hospital with tachycardia, tachypnea, as well as fever found to have sepsis secondary to COVID-19 infection # viral sepsis d/t covid -clinically resolved - has no other source of infection at this time, with chest x-ray being negative, UA negative # COVID-19 infection--O2 sat 98 on room air - no hypoxia, no chest x-ray evidence of infiltrate -no indication for steroid or Remdesevir at this time # NORMAN--resolved - likely secondary to dehydration - IVF - daily BMP BMP # Acute hypOkalemia - repleted - follow labs #Diarrhea--from covid and is getting better #HypOnatremia, acute on chronic--likely hypovolemia, including diarrhea related. Worse today at 124, water restrtiction, NS, Nephro consult DVT prophylaxis: Lovenox Need for inpatient: [facility] needing IVF, Hyponatremia needs work up and IVF for crrection Quality Stroke Does the patient have a stroke diagnosis?: No VTE Prior VTE?: No VTE Risk Level:: Medical - moderate - high VTE Device Contraindication: N/A - Device Ordered VTE Drug Contraindication: N/A - Med Ordered
[2021-12-07] MEDS: Acetaminophen 325 MG TABLET 650 MG PO ×2 (11:21→20:00)
[2021-12-07 11:57] VITALS: BP 126/69; PULSE 80; RESP 19; TEMP 37.4; O2SAT 99
[2021-12-07 15:31] VITALS: BP 154/91; PULSE 78; RESP 100; TEMP 37.1; O2SAT 100
[2021-12-07 18:12] LABS: Sodium 124 mmol/L (135-145)
[2021-12-07 21:03] VITALS: BP 158/96; PULSE 80; RESP 15; TEMP 37.1; O2SAT 100
[2021-12-08] MEDS: 0.9 % Sodium Chloride 1,000 ML 100 ML IVCONT (00:13)
[2021-12-08] MEDS: Acetaminophen 325 MG TABLET 650 MG PO ×3 (03:22→20:18)
[2021-12-08 03:27] VITALS: BMI 30.4
[2021-12-08 03:58] VITALS: BP 139/81; PULSE 83; RESP 20; TEMP 36.9; O2SAT 97
[2021-12-08 07:27] VITALS: BP 143/68; PULSE 81; RESP 18; TEMP 36.6; O2SAT 97
[2021-12-08 09:15] LABS: Anion Gap 12 (12-20); Blood Urea Nitrogen 11 mg/dL (9-16); Calcium 7.7 mg/dL (8.4-10.2); Carbon Dioxide 22 mmol/L (22-29); Chloride 91 mmol/L (96-108); Creatinine Clr Calc Pharmacy 63.1; Estimated Glomerular Filt Rate 58; Glucose Random 90 mg/dL (60-115); Potassium 2.9 mmol/L (3.3-5.1); Sodium 122 mmol/L (135-145)
--- NOTE | 2021-12-08 10:29 | HO.PM.IMPN ---
Subjective Subjective Date of Service: 12/09/21 Interval History: f/u on [facility]MAN, covid 19 interval history: slight diarrhea this morning, sodium continues to trend down at 122 today Review of Systems no sob no feve no cough Physical Exam Vital Signs: Vital Signs: Last Vital Signs Temp 97.8 F 12/08/21 07:27 Pulse 81 12/08/21 07:27 Resp 18 12/08/21 07:27 BP 143/68 H 12/08/21 07:27 Pulse Ox 97 12/08/21 07:27 O2 Del Method 12/08/21 07:27 O2 Flow Rate 2 12/07/21 21:03 BMI result Body Mass Index 30.4 Const: Other: General: AO X 3, no acute distress Resp: CTA bilateral CVS: S1,S2,RRR GI: +BS, NT, no distention Skin: No rash Neuro: motor grossly intact Psych: appropriate affect Objective Data Active Medications Acetaminophen (Acetaminophen 325 Mg Tablet) 650 mg PO Q6H PRN PRN Reason: Pain, Mild (Pain Scale 1-3) Last Admin: 12/08/21 09:57 Dose: 650 mg Documented By: GAVIOTA Docusate Sodium (Docusate Sodium 100 Mg Capsule) 100 mg PO DAILY PRN PRN Reason: Constipation Enoxaparin Sodium (Enoxaparin Sodium 40 Mg/0.4 Ml Syringe) 40 mg SUBCUT Q24H [facility] Last Admin: 12/07/21 22:34 Dose: 40 mg Documented By: DANTE Hydromorphone HCl (Hydromorphone Hcl 0.5 Mg/0.5 Ml Syringe) 0.5 mg IVPUSH Q4H PRN; Protocol PRN Reason: Breakthrough Pain Last Admin: 12/07/21 00:12 Dose: 0.5 mg Documented By: ALEX Sodium Chloride (Ns) 1,000 mls @ 150 mls/hr IVCONT .Q6H[facility]M [facility] Last Admin: 12/08/21 00:13 Dose: 100 mls/hr Documented By: DANTE Ondansetron HCl (Ondansetron Hcl 4 Mg/2 Ml Vial) 4 mg IVPUSH Q8H PRN PRN Reason: Nausea and Vomiting Sodium Chloride (0.9 % Sodium Chloride Flush 3 Ml Syringe) 3 ml IVFLUSH QSHIFT [facility] Last Admin: 12/08/21 08:15 Dose: Not Given Documented By: GAVIOTA Non-Admin Reason: IV Running Labs CBC & Chem 7: 12/05/21 11:54 12/09/21 06:00 Labs: Laboratory Results - last 24 hr 12/08/21 08:22 Anion Gap 12 Estim Creat Clear Calc 63.1 Estimated GFR 58 Random Glucose 90 Calcium 7.7 L Assessment and Plan (1) Sepsis: Status: Acute (2) COVID-19: Status: Acute (3) NORMAN (acute kidney injury): Status: Acute (4) Acute hypokalemia: Status: Acute Plan 61-year-old female who presents to the hospital with tachycardia, tachypnea, as well as fever found to have sepsis secondary to COVID-19 infection # viral sepsis d/t covid -clinically resolved - has no other source of infection at this time, with chest x-ray being negative, UA negative # COVID-19 infection--O2 sat 97 on room air - no hypoxia, no chest x-ray evidence of infiltrate -no indication for steroid or Remdesevir at this time # NORMAN--resolved - likely secondary to dehydration from diarrhea - IVF - daily BMP BMP # Acute hypOkalemia - Oral replacment - follow labs #Diarrhea--from covid and is getting better, Cidif not obtained #HypOnatremia, acute on chronic--Likely multifactorial in Chlorthalidone (but has not been on this in the hospital) , increased water intake., -increase NS, check urine sodium and osmo, serum osmo -water restriction -Nephrology consult DVT prophylaxis: Lovenox Need for inpatient: [facility] needing IVF, Hyponatremia needs work up and IVF for crrection--sodium is 122 Quality Stroke Does the patient have a stroke diagnosis?: No VTE Prior VTE?: No VTE Risk Level:: Medical - moderate - high VTE Device Contraindication: N/A - Device Ordered VTE Drug Contraindication: N/A - Med Ordered
[2021-12-08] MEDS: 0.9 % Sodium Chloride 1,000 ML 150 ML IVCONT ×2 (11:10→17:20)
[2021-12-08] MEDS: Cyanocobalamin (Vitamin B-12) 1,000 MCG TABLET 1000 MCG PO (11:10)
[2021-12-08] MEDS: Cholecalciferol (Vitamin D3) 25 MCG TABLET PO (11:10)
[2021-12-08] MEDS: Potassium Chloride ER 20 MEQ TAB.ER.PRT 40 MEQ PO (11:10)
[2021-12-08] MEDS: Multivitamin TABLET 1 TAB PO (11:11)
[2021-12-08] MEDS: ondansetron HCL 4 MG/2 ML VIAL IVPUSH ×2 (11:11→22:04)
[2021-12-08 12:00] VITALS: BP 139/68; PULSE 79; RESP 18; TEMP 36.6; O2SAT 98
--- NOTE | 2021-12-08 13:05 | MHC.CM.PN ---
Per MD rounds patient is not medically ready for discharge. case Management will continue to follow patient for discharge planning needs.
[2021-12-08 14:19] LABS: Osmolality Urine 478 mosm/kg (373-1093)
[2021-12-08 14:54] LABS: Anion Gap 12 (12-20); Carbon Dioxide 22 mmol/L (22-29); Chloride 90 mmol/L (96-108); Potassium 3.3 mmol/L (3.3-5.1); Sodium 121 mmol/L (135-145)
[2021-12-08 15:20] VITALS: BP 127/69; PULSE 81; RESP 18; TEMP 37.3; O2SAT 96
--- NOTE | 2021-12-08 16:01 | PM.PNNEP ---
Subjective Subjective Date of Service: 12/08/21 Physical Exam Vital Signs: Vital Signs: Last Vital Signs Temp 99.2 F 12/08/21 15:20 Pulse 81 12/08/21 15:20 Resp 18 12/08/21 15:20 BP 127/69 12/08/21 15:20 Pulse Ox 96 12/08/21 15:20 O2 Del Method 12/08/21 15:20 O2 Flow Rate 2 12/07/21 21:03 BMI result Body Mass Index 30.4 Objective Data Labs CBC & Chem 7: 12/05/21 11:54 12/08/21 14:19 Labs: Laboratory Results - last 24 hr 12/07/21 12/08/21 12/08/21 17:49 08:22 14:19 Sodium 124 L 122 L 121 L Potassium 2.9 L 3.3 Chloride 91 L 90 L Carbon Dioxide 22 22 Anion Gap 12 12 BUN 11 Creatinine 0.97 Estim Creat Clear Calc 63.1 Estimated GFR 58 Random Glucose 90 Calcium 7.7 L Urine Osmolality 12/08/21 Unknown Sodium Potassium Chloride Carbon Dioxide Anion Gap BUN Creatinine Estim Creat Clear Calc Estimated GFR Random Glucose Calcium Urine Osmolality 478 Microbiology Microbiology Results: Microbiology 12/05/21 01:37 Blood - Venous Blood Culture - Preliminary No growth after 48 hours. 12/05/21 01:37 Blood - Venous Blood Culture - Preliminary No growth after 48 hours. 12/04/21 23:26 Blood - Venous Blood Culture - Preliminary No growth after 48 hours. 12/04/21 22:10 Blood - Venous Blood Culture - Preliminary No growth after 48 hours. Assessment & Plan Time Spent With Patient Time: Total time spent is greater than 50% in coordination of care (as documented) at patient's floor/unit and/or counseling patient: Progress Note: Quality Stroke Does the patient have a stroke diagnosis?: No
--- NOTE | 2021-12-08 16:02 | PM.CNNEP ---
History of Present Illness Reason for Consult Consult date: 12/08/21 Reason for consult: NORMAN, hyponatremia Chief Complaint Chief complaint: Sepsis, COVID infection History of Present Illness Narrative: 61-year-old female who presents to the hospital with tachycardia, tachypnea, as well as fever found to have sepsis secondary to COVID-19 infection. Nephrology consulted for worsening Na levels and NORMAN which has now resolved at time of evaluation. Patient reports not feeling herself, with mild nausea and poor appetite. ROS otherwise negative. Review of Systems Constitutional: Reports as per [facility] Past Medical History Medical History Hypertension Family History Family History Other No family history of coronary artery disease Family history: reviewed and not pertinent Surgical History Surgical History No pertinent past surgical history Social History Social History Household Members: Spouse Housing: House Do you presently have visiting nurse or other home services: No Alcohol intake: never Patient Tobacco Use Status: Never used Tobacco Advance Directives: No Advance Directives Information Provided: Yes service: No Current occupational status: retired [employer] Allergies Allergy/AdvReac Type Severity Reaction Status Date / Time No Known Allergies Allergy Verified 12/04/21 22:14 Active Medications: Current Medications Acetaminophen (Acetaminophen 325 Mg Tablet) 650 mg PO Q6H PRN PRN Reason: Pain, Mild (Pain Scale 1-3) Last Admin: 12/08/21 09:57 Dose: 650 mg Albuterol Sulfate (Albuterol Sulfate 90 Mcg 8 Gm Inhaler) 2 puff INHALE Q4H PRN PRN Reason: Shortness Of Breath Cyanocobalamin (Cyanocobalamin (Vitamin B-12) 1,000 Mcg Tablet) 1,000 mcg PO DAILY [facility] Last Admin: 12/08/21 11:10 Dose: 1,000 mcg Docusate Sodium (Docusate Sodium 100 Mg Capsule) 100 mg PO DAILY PRN PRN Reason: Constipation Enoxaparin Sodium (Enoxaparin Sodium 40 Mg/0.4 Ml Syringe) 40 mg SUBCUT Q24H [facility] Last Admin: 12/07/21 22:34 Dose: 40 mg Hydromorphone HCl (Hydromorphone Hcl 0.5 Mg/0.5 Ml Syringe) 0.5 mg IVPUSH Q4H PRN; Protocol PRN Reason: Breakthrough Pain Last Admin: 12/07/21 00:12 Dose: 0.5 mg Sodium Chloride (Ns) 1,000 mls @ 150 mls/hr IVCONT .Q6H40M [facility] Last Admin: 12/08/21 11:10 Dose: 150 mls/hr Lorazepam (Lorazepam 0.5 Mg Tablet) 0.5 mg PO DAILY PRN PRN Reason: Anxiety Multivitamins/Vitamin C (Multivitamin Tablet) 1 tab PO DAILY [facility] Last Admin: 12/08/21 11:11 Dose: 1 tab Ondansetron HCl (Ondansetron Hcl 4 Mg/2 Ml Vial) 4 mg IVPUSH Q8H PRN PRN Reason: Nausea and Vomiting Last Admin: 12/08/21 11:11 Dose: 4 mg Sodium Chloride (0.9 % Sodium Chloride Flush 3 Ml Syringe) 3 ml IVFLUSH QSHIFT [facility] Last Admin: 12/08/21 08:15 Dose: Not Given Vitamin D (Cholecalciferol (Vitamin D3) 25 Mcg Tablet) 25 mcg PO DAILY [facility] Last Admin: 12/08/21 11:10 Dose: 25 mcg Home Medications Medication Instructions Recorded Confirmed Last Taken Type albuterol sulfate 90 mcg/actuation 2 puff inhalation Q4-6H PRN 12/05/21 12/05/21 Unknown History aerosol inhaler (ProAir HFA) Shortness Of Breath chlorthalidone 25 mg tablet 1 tab PO DAILY 12/05/21 12/05/21 12/04/21 History cholecalciferol (vitamin D3) 25 25 mcg PO DAILY 12/05/21 12/05/21 12/04/21 History mcg (1,000 unit) tablet cyanocobalamin (vitamin B-12) 1,000 mcg PO DAILY 12/05/21 12/05/21 12/04/21 History 1,000 mcg tablet lorazepam 0.5 mg tablet 1 tab PO DAILY PRN Anxiety 12/05/21 12/05/21 Unknown History multivitamin 1 tab PO DAILY 12/05/21 12/05/21 12/04/21 History turmeric root extract 500 mg 500 mg PO DAILY 12/05/21 12/05/21 12/04/21 History capsule Physical Exam Vital Signs: Last Vital Signs Temp 99.2 F 12/08/21 15:20 Pulse 81 12/08/21 15:20 Resp 18 12/08/21 15:20 BP 127/69 12/08/21 15:20 Pulse Ox 96 12/08/21 15:20 O2 Del Method 12/08/21 15:20 O2 Flow Rate 2 12/07/21 21:03 BMI result Body Mass Index 30.4 Const General: comfortable and no acute distress Orientation/consciousness: patient oriented x3 HEENT Head: Yes normocephalic and Yes atraumatic Neck Neck: Yes supple Resp Auscultation: clear to auscultation bilaterally Cardio Jugular venous distension: no JVD Rate: regular rate Rhythm: regular rhythm Heart sounds: S1 normal heart sound present and S2 normal heart sound present GI Auscultation: normal bowel sounds Neuro General: patient oriented x3 Extrem General: Yes no clubbing, cyanosis or edema Results Lab Results Result Diagrams: 12/05/21 11:54 12/08/21 14:19 Lab results: Chemistry 12/06/21 12/06/21 12/07/21 04:10 17:09 06:03 Sodium 129 L 127 L 124 L Potassium 3.6 3.4 3.5 Carbon Dioxide 22 23 21 L BUN 17 H 15 Creatinine 1.16 1.04 Calcium 8.3 L 7.6 L D 12/07/21 12/08/21 12/08/21 17:49 08:22 14:19 Sodium 124 L 122 L 121 L Potassium 2.9 L 3.3 Carbon Dioxide 22 22 BUN 11 Creatinine 0.97 Calcium 7.7 L Urine Studies 12/08/21 Unknown Urine Osmolality 478 Assessment and Plan (1) NORMAN (acute kidney injury): Status: Acute (2) Hyponatremia: Status: Acute #) Hypotonic hyponatremia Hyponatremia which has worsened since 12/05 (134--> 121) Keep Na check q 4 hours for now with more frequent checks (Q 2 hrs) if she declines to < 120 meq/L Urine data added. U-Osm = 478 consistent with siadh. Given her presentation with fever and concern for infection she likely has ADH on board. Suggest only allowing her to drink sips of water to thirst. Limit FW intake. COncentrate gtt's add boost/ensure with meals. We can provide solute load with 2 Gm NaCl tablets bid for now. provide 10 mg iv lasix now to help with FW excretion and dilute her urine. S-Osm added for am. #) NORMAN S-Cr improving s/p ivf's. Procedures Date of Service Date of Service: 12/08/21
[2021-12-08 19:18] VITALS: BP 140/68; PULSE 84; RESP 20; TEMP 36.9; O2SAT 97
[2021-12-08 19:20] LABS: CDiff Gene PCR NEGATIVE (Negative)
[2021-12-08] MEDS: Sodium Chloride Tab 1 GM TABLET 2 GM PO (20:18)
[2021-12-08] MEDS: Furosemide 20 MG/2 ML VIAL 10 MG IVPUSH (20:18)
[2021-12-08] MEDS: 0.9 % Sodium Chloride Flush 3 ML SYRINGE IVFLUSH (20:19)
[2021-12-08] MEDS: Enoxaparin Sodium 40 MG/0.4 ML SYRINGE SUBCUT (22:04)
[2021-12-09] VITALS: BP 132/60; PULSE 87; RESP 18; TEMP 37.1; O2SAT 95
[2021-12-09] MEDS: LORazepam 0.5 MG TABLET PO (03:49)
[2021-12-09 03:56] VITALS: BP 132/78; PULSE 78; RESP 20; TEMP 37.1; O2SAT 96
[2021-12-09 07:25] LABS: Anion Gap 12 (12-20); Blood Urea Nitrogen 10 mg/dL (9-16); Calcium 7.7 mg/dL (8.4-10.2); Carbon Dioxide 22 mmol/L (22-29); Chloride 90 mmol/L (96-108); Creatinine Clr Calc Pharmacy 63.7; Estimated Glomerular Filt Rate 59; Glucose Random 71 mg/dL (60-115); Potassium 3.3 mmol/L (3.3-5.1); Sodium 121 mmol/L (135-145)
[2021-12-09 07:43] LABS: Osmolality, Serum 251 mosm/kg (281-305)
[2021-12-09 08:00] VITALS: BP 131/66; PULSE 79; RESP 18; TEMP 37.2; O2SAT 96
[2021-12-09] MEDS: Cyanocobalamin (Vitamin B-12) 1,000 MCG TABLET 1000 MCG PO (09:00)
[2021-12-09] MEDS: 0.9 % Sodium Chloride Flush 3 ML SYRINGE IVFLUSH ×2 (09:00→15:47)
[2021-12-09] MEDS: Loperamide HCl 2 MG CAPSULE PO ×3 (09:00→20:36)
[2021-12-09] MEDS: Multivitamin TABLET 1 TAB PO (09:00)
[2021-12-09] MEDS: Cholecalciferol (Vitamin D3) 25 MCG TABLET PO (09:00)
[2021-12-09 11:51] VITALS: BP 135/66; PULSE 80; RESP 18; TEMP 37.2; O2SAT 98
--- NOTE | 2021-12-09 12:58 | HO.PM.IMPN ---
Subjective Subjective Date of Service: 12/09/21 Interval History: f/u on [facility], covid 19 interval history: having profuse diarrhea, sodium remains very low Review of Systems no sob no feve no cough Physical Exam Vital Signs: Vital Signs: Last Vital Signs Temp 98.9 F 12/09/21 11:51 Pulse 80 12/09/21 11:51 Resp 18 12/09/21 11:51 BP 135/66 12/09/21 11:51 Pulse Ox 98 12/09/21 11:51 O2 Del Method 12/09/21 11:51 O2 Flow Rate 2 12/07/21 21:03 BMI result Body Mass Index 30.4 Objective Data Active Medications Acetaminophen (Acetaminophen 325 Mg Tablet) 650 mg PO Q6H PRN PRN Reason: Pain, Mild (Pain Scale 1-3) Last Admin: 12/08/21 20:18 Dose: 650 mg Documented By: ATA Albuterol Sulfate (Albuterol Sulfate 90 Mcg 8 Gm Inhaler) 2 puff INHALE Q4H PRN PRN Reason: Shortness Of Breath Cyanocobalamin (Cyanocobalamin (Vitamin B-12) 1,000 Mcg Tablet) 1,000 mcg PO DAILY [facility] Last Admin: 12/09/21 09:00 Dose: 1,000 mcg Documented By: COTEM Docusate Sodium (Docusate Sodium 100 Mg Capsule) 100 mg PO DAILY PRN PRN Reason: Constipation Enoxaparin Sodium (Enoxaparin Sodium 40 Mg/0.4 Ml Syringe) 40 mg SUBCUT Q24H [facility] Last Admin: 12/08/21 22:04 Dose: 40 mg Documented By: ATA Hydromorphone HCl (Hydromorphone Hcl 0.5 Mg/0.5 Ml Syringe) 0.5 mg IVPUSH Q4H PRN; Protocol PRN Reason: Breakthrough Pain Last Admin: 12/07/21 00:12 Dose: 0.5 mg Documented By: ALEX Loperamide HCl (Loperamide Hcl 2 Mg Capsule) 2 mg PO Q4H PRN PRN Reason: Diarrhea Last Admin: 12/09/21 09:00 Dose: 2 mg Documented By: COTEM Lorazepam (Lorazepam 0.5 Mg Tablet) 0.5 mg PO DAILY PRN PRN Reason: Anxiety Last Admin: 12/09/21 03:49 Dose: 0.5 mg Documented By: ATA Multivitamins/Vitamin C (Multivitamin Tablet) 1 tab PO DAILY [facility] Last Admin: 12/09/21 09:00 Dose: 1 tab Documented By: YENIFER Ondansetron HCl (Ondansetron Hcl 4 Mg/2 Ml Vial) 4 mg IVPUSH Q8H PRN PRN Reason: Nausea and Vomiting Last Admin: 12/08/21 22:04 Dose: 4 mg Documented By: ATA Sodium Chloride (0.9 % Sodium Chloride Flush 3 Ml Syringe) 3 ml IVFLUSH QSHIFT [facility] Last Admin: 12/09/21 09:00 Dose: 3 ml Documented By: YENIFER Vitamin D (Cholecalciferol (Vitamin D3) 25 Mcg Tablet) 25 mcg PO DAILY [facility] Last Admin: 12/09/21 09:00 Dose: 25 mcg Documented By: YENIFER Labs CBC & Chem 7: 12/05/21 11:54 12/09/21 06:00 Labs: Laboratory Results - last 24 hr 12/08/21 12/08/21 12/08/21 14:19 Unknown Unknown Anion Gap 12 Estim Creat Clear Calc Estimated GFR Random Glucose Osmolality Calcium Urine Osmolality 478 Ur Random Sodium 127.0 C. difficile Tox B Gene 12/08/21 12/09/21 12/09/21 Unknown 06:00 06:28 Anion Gap 12 Estim Creat Clear Calc 63.7 Estimated GFR 59 Random Glucose 71 Osmolality 251 L Calcium 7.7 L Urine Osmolality Ur Random Sodium C. difficile Tox B Gene NEGATIVE Assessment and Plan (1) Sepsis: Status: Acute (2) COVID-19: Status: Acute (3) NORMAN (acute kidney injury): Status: Acute (4) Acute hypokalemia: Status: Acute Plan 61-year-old female who presents to the hospital with tachycardia, tachypnea, as well as fever found to have sepsis secondary to COVID-19 infection # viral sepsis d/t covid -clinically resolved - has no other source of infection at this time, with chest x-ray being negative, UA negative # COVID-19 infection--O2 sat 97 on room air - no hypoxia, no chest x-ray evidence of infiltrate -no indication for steroid or Remdesevir at this time # NORMAN--resolved - likely secondary to dehydration from diarrhea - IVF - daily BMP BMP # Acute hypOkalemia - Oral replacment and resolved #Diarrhea--from covid and is getting better, Cidif not obtained #HypOnatremia, acute on chronic--Likely multifactorial including Chlorthalidone (but has not been on this in the hospital) , increased water intake., -increase NS, check urine sodium and osmo, serum osmo -water restriction -Nephrology consult -salt tabs DVT prophylaxis: Lovenox Need for inpatient: [facility]MAN needing IVF, Hyponatremia needs work up and IVF for crrection--sodium is 121 Quality Stroke Does the patient have a stroke diagnosis?: No VTE Prior VTE?: No VTE Risk Level:: Medical - moderate - high VTE Device Contraindication: N/A - Device Ordered VTE Drug Contraindication: N/A - Med Ordered
[2021-12-09] MEDS: Sodium Chloride Tab 1 GM TABLET 2 GM PO ×2 (13:51→20:35)
--- NOTE | 2021-12-09 14:58 | P.PNNP_ITS ---
Subjective Subjective Date of Service: 12/09/21 Interval history: Chart Reviewed. Events noted. Na remains low at 121. Physical Exam Vital Signs: Vital Signs: Last Vital Signs Temp 98.9 F 12/09/21 11:51 Pulse 80 12/09/21 11:51 Resp 18 12/09/21 11:51 BP 135/66 12/09/21 11:51 Pulse Ox 98 12/09/21 11:51 O2 Del Method 12/09/21 11:51 O2 Flow Rate 2 12/07/21 21:03 BMI result Body Mass Index 30.4 Const: General: cooperative and no acute distress Orientation/consciousnes s: patient oriented x3 HEENT: Head: Yes normocephalic Neck: Neck: Yes no JVD Resp: Auscultation: clear to auscultation bilaterally Cardio: Jugular venous distension: no JVD Rate: regular rate Rhythm: regular rhythm Heart sounds: S1 normal heart sound present and S2 normal heart sound present GI: Auscultation: normal bowel sounds Neuro: General: patient oriented x3 and moves all extremities Extrem: General: Yes no clubbing, cyanosis or edema Objective Data Labs CBC & Chem 7: 12/05/21 11:54 12/09/21 06:00 Labs: Laboratory Results - last 24 hr 12/08/21 12/08/21 12/09/21 Unknown Unknown 06:00 Sodium 121 L Potassium 3.3 Chloride 90 L Carbon Dioxide 22 Anion Gap 12 BUN 10 Creatinine 0.96 Estim Creat Clear Calc 63.7 Estimated GFR 59 Random Glucose 71 Osmolality Calcium 7.7 L Ur Random Sodium 127.0 C. difficile Tox B Gene NEGATIVE 12/09/21 06:28 Sodium Potassium Chloride Carbon Dioxide Anion Gap BUN Creatinine Estim Creat Clear Calc Estimated GFR Random Glucose Osmolality 251 L Calcium Ur Random Sodium C. difficile Tox B Gene Microbiology Microbiology Results: Microbiology 12/05/21 01:37 Blood - Venous Blood Culture - Preliminary No growth after 48 hours. 12/05/21 01:37 Blood - Venous Blood Culture - Preliminary No growth after 48 hours. 12/04/21 23:26 Blood - Venous Blood Culture - Preliminary No growth after 48 hours. 12/04/21 22:10 Blood - Venous Blood Culture - Preliminary No growth after 48 hours. Procedures Date of Service Date of Service: 12/09/21 Assessment & Plan Assessment and plan (1) Hyponatremia: Status: Acute Assessment and Plan: #) Hypotonic hyponatremia Hyponatremia which has worsened since 12/05 (134--> 121) Keep Na check q 4 hours for now with more frequent checks (Q 2 hrs) if she declines to < 120 meq/L Urine data added. U-Osm = 478 consistent with siadh. Given her presentation with fever and concern for infection she likely has ADH on board. Suggest only allowing her to drink sips of water to thirst. Limit FW intake. Concentrate gtt's. add boost/ensure with meals. Continues to have diarrhea. We can provide solute load with 2 Gm NaCl tablets. WOuld increase to tid. U osm, U Na added. #) NORMAN S-Cr improving s/p ivf's. PRovide 60 meq KCl replacement. (2) NORMAN (acute kidney injury): Status: Acute Time Spent With Patient Time: Total time spent is greater than 50% in coordination of care (as documented) at patient's floor/unit and/or counseling patient: Progress Note: Quality Stroke Does the patient have a stroke diagnosis?: No
[2021-12-09 15:35] LABS: Sodium 121 mmol/L (135-145)
[2021-12-09 16:00] VITALS: BP 133/69; PULSE 77; RESP 18; TEMP 37.1; O2SAT 95
[2021-12-09 17:39] LABS: Potassium Urine Random 12.6 mmol/L
[2021-12-09 18:57] LABS: Osmolality Urine 350 mosm/kg (373-1093)
[2021-12-09 20:00] VITALS: BP 145/68; PULSE 79; RESP 16; TEMP 37.3; O2SAT 94
[2021-12-10] VITALS: BP 130/73; PULSE 63; RESP 18; TEMP 37.1; O2SAT 96
[2021-12-10] MEDS: 0.9 % Sodium Chloride Flush 3 ML SYRINGE IVFLUSH ×3 (00:06→17:12)
[2021-12-10] MEDS: LORazepam 0.5 MG TABLET PO (00:07)
[2021-12-10] MEDS: Enoxaparin Sodium 40 MG/0.4 ML SYRINGE SUBCUT (00:08)
[2021-12-10 04:00] VITALS: BP 141/85; PULSE 68; RESP 20; TEMP 37.1; O2SAT 98
--- NOTE | 2021-12-10 06:07 | PC.NURSE ---
CARE ASSUMED 23:15...AWAKE..ALERT..ORIENTED X3...PRN DAILY ATIVAN AT OO:O7 PER REQUEST FOR ANXIETY WITH REPORTED EFFECT..EDUCATED R/T CURRENT PO FLUID RESTRICTION D/T Na LEVELS....SIGH POSTED ON DOOR R/T 1200ml PO FLUID RESTRICTION
[2021-12-10 07:27] VITALS: BP 146/79; PULSE 78; RESP 20; TEMP 36.6; O2SAT 95
[2021-12-10 09:00] LABS: Anion Gap 12 (12-20); Blood Urea Nitrogen 7 mg/dL (9-16); Calcium 8.3 mg/dL (8.4-10.2); Carbon Dioxide 27 mmol/L (22-29); Chloride 87 mmol/L (96-108); Creatinine Clr Calc Pharmacy 69.5; Estimated Glomerular Filt Rate > 60; Glucose Random 79 mg/dL (60-115); Potassium 3.5 mmol/L (3.3-5.1); Sodium 122 mmol/L (135-145)
[2021-12-10] MEDS: Cholecalciferol (Vitamin D3) 25 MCG TABLET PO (09:08)
[2021-12-10] MEDS: Sodium Chloride Tab 1 GM TABLET 2 GM PO ×2 (09:08→21:38)
[2021-12-10] MEDS: Multivitamin TABLET 1 TAB PO (09:08)
[2021-12-10] MEDS: Cyanocobalamin (Vitamin B-12) 1,000 MCG TABLET 1000 MCG PO (09:08)
--- NOTE | 2021-12-10 11:11 | P.PNIM_ITS ---
Subjective Subjective Date of Service: 12/10/21 Interval History: f/u on [facility], covid 19 interval history: Diarrhea is better, sodium still low and feels weak Review of Systems no sob no feve no cough Physical Exam Vital Signs: Vital Signs: Last Vital Signs Temp 97.8 F 12/10/21 07:27 Pulse 78 12/10/21 07:27 Resp 20 12/10/21 07:27 BP 146/79 H 12/10/21 07:27 Pulse Ox 95 12/10/21 07:27 O2 Del Method 12/10/21 07:27 O2 Flow Rate 2 12/07/21 21:03 BMI result Body Mass Index 30.4 Objective Data Active Medications Acetaminophen (Acetaminophen 325 Mg Tablet) 650 mg PO Q6H PRN PRN Reason: Pain, Mild (Pain Scale 1-3) Last Admin: 12/08/21 20:18 Dose: 650 mg Documented By: ATA Albuterol Sulfate (Albuterol Sulfate 90 Mcg 8 Gm Inhaler) 2 puff INHALE Q4H PRN PRN Reason: Shortness Of Breath Cyanocobalamin (Cyanocobalamin (Vitamin B-12) 1,000 Mcg Tablet) 1,000 mcg PO DAILY [facility] Last Admin: 12/10/21 09:08 Dose: 1,000 mcg Documented By: TENISHA Docusate Sodium (Docusate Sodium 100 Mg Capsule) 100 mg PO DAILY PRN PRN Reason: Constipation Enoxaparin Sodium (Enoxaparin Sodium 40 Mg/0.4 Ml Syringe) 40 mg SUBCUT Q24H [facility] Last Admin: 12/10/21 00:08 Dose: 40 mg Documented By: AGNES Hydromorphone HCl (Hydromorphone Hcl 0.5 Mg/0.5 Ml Syringe) 0.5 mg IVPUSH Q4H PRN; Protocol PRN Reason: Breakthrough Pain Last Admin: 12/07/21 00:12 Dose: 0.5 mg Documented By: ALEX Loperamide HCl (Loperamide Hcl 2 Mg Capsule) 2 mg PO Q4H PRN PRN Reason: Diarrhea Last Admin: 12/09/21 20:36 Dose: 2 mg Documented By: MARCELA Lorazepam (Lorazepam 0.5 Mg Tablet) 0.5 mg PO DAILY PRN PRN Reason: Anxiety Last Admin: 12/10/21 00:07 Dose: 0.5 mg Documented By: AGNES Multivitamins/Vitamin C (Multivitamin Tablet) 1 tab PO DAILY [facility] Last Admin: 12/10/21 09:08 Dose: 1 tab Documented By: TENISHA Ondansetron HCl (Ondansetron Hcl 4 Mg/2 Ml Vial) 4 mg IVPUSH Q8H PRN PRN Reason: Nausea and Vomiting Last Admin: 12/08/21 22:04 Dose: 4 mg Documented By: ATA Sodium Chloride (0.9 % Sodium Chloride Flush 3 Ml Syringe) 3 ml IVFLUSH QSHIFT [facility] Last Admin: 12/10/21 09:09 Dose: 3 ml Documented By: TENISHA Sodium Chloride (Sodium Chloride Tab 1 Gm Tablet) 2 gm PO BID [facility] Last Admin: 12/10/21 09:08 Dose: 2 gm Documented By: TENISHA Vitamin D (Cholecalciferol (Vitamin D3) 25 Mcg Tablet) 25 mcg PO DAILY [facility] Last Admin: 12/10/21 09:08 Dose: 25 mcg Documented By: TENISHA Labs CBC & Chem 7: 12/05/21 11:54 12/10/21 08:31 Labs: Laboratory Results - last 24 hr 12/09/21 12/09/21 12/09/21 Unknown Unknown Unknown Anion Gap Estim Creat Clear Calc Estimated GFR Random Glucose Calcium Urine Osmolality 350 L Ur Random Sodium 104.0 Ur Random Potassium 12.6 12/10/21 08:31 Anion Gap 12 Estim Creat Clear Calc 69.5 Estimated GFR > 60 Random Glucose 79 Calcium 8.3 L D Urine Osmolality Ur Random Sodium Ur Random Potassium Microbiology Microbiology Results: Microbiology 12/05/21 01:37 Blood Culture - Final Blood - Venous No growth after 5 days. 12/05/21 01:37 Blood Culture - Final Blood - Venous No growth after 5 days. 12/04/21 23:26 Blood Culture - Final Blood - Venous No growth after 5 days. 12/04/21 22:10 Blood Culture - Final Blood - Venous No growth after 5 days. Assessment and Plan (1) Sepsis: Status: Acute (2) COVID-19: Status: Acute (3) NORMAN (acute kidney injury): Status: Acute (4) Acute hypokalemia: Status: Acute Plan 61-year-old female who presents to the hospital with tachycardia, tachypnea, as well as fever found to have sepsis secondary to COVID-19 infection # viral sepsis d/t covid -clinically resolved - has no other source of infection at this time, with chest x-ray being negative, UA negative # COVID-19 infection--O2 sat 97 on room air - no hypoxia, no chest x-ray evidence of infiltrate -no indication for steroid or Remdesevir at this time # NORMAN--resolved - likely secondary to dehydration from diarrhea - IVF - daily BMP BMP # Acute hypOkalemia - resolved #Diarrhea--from covid and is getting better, negative cdif, imdium, nearly resolved now #HypOnatremia, acute on chronic--Likely multifactorial including Chlorthalidone (but has not been on this in the hospital) , increased water intake., -increase salt toab to 2 tid, ? use of Urea since sodium level remains unchanged. Continue free water restriction DVT prophylaxis: Lovenox Need for inpatient: Severe Hyponatremia needing frequent level checks and fluid management Quality Stroke Does the patient have a stroke diagnosis?: No VTE Prior VTE?: No VTE Risk Level:: Medical - moderate - high VTE Device Contraindication: N/A - Device Ordered VTE Drug Contraindication: N/A - Med Ordered
[2021-12-10] MEDS: ondansetron HCL 4 MG/2 ML VIAL IVPUSH ×2 (11:23→21:38)
[2021-12-10 12:00] VITALS: BP 150/72; PULSE 76; RESP 20; TEMP 36.3; O2SAT 96
--- NOTE | 2021-12-10 14:58 | PM.PNNEP ---
Subjective Subjective Date of Service: 12/10/21 Interval history: f/u on [facility], covid 19/ Hyponatremia Nauseas with Nacl tabs Physical Exam Vital Signs: Vital Signs: Last Vital Signs Temp 97.4 F 12/10/21 12:00 Pulse 76 12/10/21 12:00 Resp 20 12/10/21 12:00 BP 150/72 H 12/10/21 12:00 Pulse Ox 96 12/10/21 12:00 O2 Del Method 12/10/21 12:00 O2 Flow Rate 2 12/07/21 21:03 BMI result Body Mass Index 30.4 Const:?? General: cooperati ve and no acute di stress? Orientatio n/consciousness: p atient oriented x3 HEENT:?? Head: Yes normocep halic Neck:?? Neck: Yes no JVD Resp:?? Auscultation: jay r to auscultation bilaterally Cardio:?? Jugular venous dis tension: no JVD? R ate: regular rate? Rhythm: regular r hythm? Heart sound s: S1 normal heart sound present and S2 normal heart s ound present GI:?? Auscultation: norm al bowel sounds Neuro:?? General: patient o riented x3 and mov es all extremities Extrem:?? General: Yes no cl ubbing, cyanosis o r edema Objective Data Labs CBC & Chem 7: 12/05/21 11:54 12/10/21 08:31 Labs: Laboratory Results - last 24 hr 12/09/21 12/09/21 12/09/21 15:01 Unknown Unknown Sodium 121 L Potassium Chloride Carbon Dioxide Anion Gap BUN Creatinine Estim Creat Clear Calc Estimated GFR Random Glucose Calcium Urine Osmolality 350 L Ur Random Sodium Ur Random Potassium 12.6 12/09/21 12/10/21 Unknown 08:31 Sodium 122 L Potassium 3.5 Chloride 87 L Carbon Dioxide 27 Anion Gap 12 BUN 7 L Creatinine 0.88 Estim Creat Clear Calc 69.5 Estimated GFR > 60 Random Glucose 79 Calcium 8.3 L D Urine Osmolality Ur Random Sodium 104.0 Ur Random Potassium Microbiology Microbiology Results: Microbiology 12/05/21 01:37 Blood - Venous Blood Culture - Final No growth after 5 days. 12/05/21 01:37 Blood - Venous Blood Culture - Final No growth after 5 days. 12/04/21 23:26 Blood - Venous Blood Culture - Final No growth after 5 days. 12/04/21 22:10 Blood - Venous Blood Culture - Final No growth after 5 days. Procedures Date of Service Date of Service: 12/10/21 Assessment & Plan Assessment and plan (1) Hyponatremia: Status: Acute Assessment and Plan: #) Hypotonic hyponatremia Hyponatremia Urine data added. U-Osm = 478 consistent with siadh. ? Increased free water intake Off thiazide diuretics Not tolerating NACL tabs Can use Urea 30 G BID add boost/ensure with meals. Repeat Urine studies ordered / Repeat S Osm / U acid tawanaderd #) NORMAN S-Cr improving s/p ivf's. (2) NORMAN (acute kidney injury): Status: Acute Time Spent With Patient Time: Total time spent is greater than 50% in coordination of care (as documented) at patient's floor/unit and/or counseling patient: Progress Note: Quality Stroke Does the patient have a stroke diagnosis?: No
--- NOTE | 2021-12-10 15:30 | MHC.CM.PN ---
EMR REVIEWED, PT COVID + CONT'S TO BY HYPONATREMIC, NA 122 TODAY AND RECEIVING BID SUPPLEMENT, NO PLAN FOR D/C TODAY, ANTIC PT WILL BE ABLE TO RETURN HOME W/OUT SERVICES ONCE MEDICALLY CLEARED, CM WILL CONT TO FOLLOW D/C NEEDS.
[2021-12-10 15:56] VITALS: BP 141/70; PULSE 78; RESP 20; TEMP 36.3; O2SAT 96
[2021-12-10] MEDS: Urea 15 GM POWDER 3 GM PO (17:12)
[2021-12-10 19:07] LABS: Creatinine Urine 69.73 mg/dL
[2021-12-10 19:11] LABS: Osmolality Urine 301 mosm/kg (373-1093)
[2021-12-10 19:19] VITALS: BP 142/76; PULSE 78; RESP 18; TEMP 37.2; O2SAT 92
[2021-12-11] VITALS (7 sets, daily range): BP systolic 110–142; BP diastolic 58–74; PULSE 67–83; RESP 18–20; TEMP 36.1–37.2; O2SAT 95–96
[2021-12-11] MEDS: Enoxaparin Sodium 40 MG/0.4 ML SYRINGE SUBCUT ×2 (00:39→23:00)
[2021-12-11] MEDS: 0.9 % Sodium Chloride Flush 3 ML SYRINGE IVFLUSH ×3 (00:40→21:41)
[2021-12-11] MEDS: Acetaminophen 325 MG TABLET 650 MG PO (00:50)
[2021-12-11] MEDS: HYDROmorphone HCl 0.5 MG/0.5 ML SYRINGE IVPUSH (03:30)
[2021-12-11] MEDS: ondansetron HCL 4 MG/2 ML VIAL IVPUSH ×2 (03:40→21:51)
[2021-12-11 07:54] LABS: Thyroid Stimulating Hormone 2.36 uIU/mL (0.32-4.0)
[2021-12-11 08:19] LABS: Anion Gap 12 (12-20); Calcium 7.9 mg/dL (8.4-10.2); Carbon Dioxide 26 mmol/L (22-29); Chloride 91 mmol/L (96-108); Creatinine Clr Calc Pharmacy 56.6; Estimated Glomerular Filt Rate 51; Glucose Random 80 mg/dL (60-115); Potassium 3.9 mmol/L (3.3-5.1)
[2021-12-11 09:12] LABS: Blood Urea Nitrogen 12 mg/dL (9-16); Sodium 125 mmol/L (135-145)
[2021-12-11] MEDS: Cholecalciferol (Vitamin D3) 25 MCG TABLET PO (09:18)
[2021-12-11] MEDS: Multivitamin TABLET 1 TAB PO (09:18)
[2021-12-11] MEDS: Urea 15 GM POWDER 3 GM PO (09:18)
[2021-12-11] MEDS: Cyanocobalamin (Vitamin B-12) 1,000 MCG TABLET 1000 MCG PO (09:18)
[2021-12-11 10:05] LABS: Osmolality, Serum 263 mosm/kg (281-305)
--- NOTE | 2021-12-11 10:53 | P.PNIM_ITS ---
Subjective Subjective Date of Service: 12/11/21 Interval History: f/u on [facility]MAN, covid 19/ Hyponatremia Nauseas and vomitting with Nacl tabs, Sodium is better today Review of Systems no sob no feve no cough Constitutional Constitutional: Reports as per HPI Physical Exam Vital Signs: Vital Signs: Last Vital Signs Temp 98.4 F 12/11/21 07:52 Pulse 67 12/11/21 07:52 Resp 18 12/11/21 07:52 BP 115/59 L 12/11/21 07:52 Pulse Ox 95 12/11/21 07:52 O2 Del Method 12/11/21 07:52 O2 Flow Rate 2 12/07/21 21:03 BMI result Body Mass Index 30.4 Const: Other: General: AO X 3, no acute distress Resp: CTA bilateral CVS: S1,S2,RRR GI: +BS, NT, no distention Skin: No rash Neuro: motor grossly intact Psych: appropriate affect Objective Data Active Medications Acetaminophen (Acetaminophen 325 Mg Tablet) 650 mg PO Q6H PRN PRN Reason: Pain, Mild (Pain Scale 1-3) Last Admin: 12/11/21 00:50 Dose: 650 mg Documented By: BUTCH Albuterol Sulfate (Albuterol Sulfate 90 Mcg 8 Gm Inhaler) 2 puff INHALE Q4H PRN PRN Reason: Shortness Of Breath Cyanocobalamin (Cyanocobalamin (Vitamin B-12) 1,000 Mcg Tablet) 1,000 mcg PO DAILY [facility] Last Admin: 12/11/21 09:18 Dose: 1,000 mcg Documented By: SOLAALIYAH Docusate Sodium (Docusate Sodium 100 Mg Capsule) 100 mg PO DAILY PRN PRN Reason: Constipation Enoxaparin Sodium (Enoxaparin Sodium 40 Mg/0.4 Ml Syringe) 40 mg SUBCUT Q24H [facility] Last Admin: 12/11/21 00:39 Dose: 40 mg Documented By: BUTCH Hydromorphone HCl (Hydromorphone Hcl 0.5 Mg/0.5 Ml Syringe) 0.5 mg IVPUSH Q4H PRN; Protocol PRN Reason: Breakthrough Pain Last Admin: 12/11/21 03:30 Dose: 0.5 mg Documented By: BUTCH Loperamide HCl (Loperamide Hcl 2 Mg Capsule) 2 mg PO Q4H PRN PRN Reason: Diarrhea Last Admin: 12/09/21 20:36 Dose: 2 mg Documented By: MARCELA Lorazepam (Lorazepam 0.5 Mg Tablet) 0.5 mg PO DAILY PRN PRN Reason: Anxiety Last Admin: 12/10/21 00:07 Dose: 0.5 mg Documented By: AGNES Multivitamins/Vitamin C (Multivitamin Tablet) 1 tab PO DAILY [facility] Last Admin: 12/11/21 09:18 Dose: 1 tab Documented By: MILTON Ondansetron HCl (Ondansetron Hcl 4 Mg/2 Ml Vial) 4 mg IVPUSH Q8H PRN PRN Reason: Nausea and Vomiting Last Admin: 12/11/21 03:40 Dose: 4 mg Documented By: BUTCH Sodium Chloride (0.9 % Sodium Chloride Flush 3 Ml Syringe) 3 ml IVFLUSH QSHIFT [facility] Last Admin: 12/11/21 09:19 Dose: 3 ml Documented By: MILTON Sodium Chloride (Sodium Chloride Tab 1 Gm Tablet) 2 gm PO BID [facility] Last Admin: 12/11/21 10:11 Dose: Not Given Documented By: MILTON Non-Admin Reason: Nausea Urea (Urea 15 Gm Powder) 3 gm PO BID [facility] Last Admin: 12/11/21 09:18 Dose: 3 gm Documented By: MILTON Comments: Vitamin D (Cholecalciferol (Vitamin D3) 25 Mcg Tablet) 25 mcg PO DAILY [facility] Last Admin: 12/11/21 09:18 Dose: 25 mcg Documented By: MILTON Labs CBC & Chem 7: 12/05/21 11:54 12/11/21 06:18 Labs: Laboratory Results - last 24 hr 12/10/21 12/10/21 12/10/21 18:40 18:40 18:40 Anion Gap Estim Creat Clear Calc Estimated GFR Random Glucose Osmolality Uric Acid Calcium TSH Urine Osmolality 301 L Ur Random Sodium 73.0 73.0 Urine Creatinine 69.73 12/11/21 12/11/21 12/11/21 06:18 06:18 06:18 Anion Gap 12 Estim Creat Clear Calc 56.6 Estimated GFR 51 Random Glucose 80 Osmolality 263 L Uric Acid 7.0 H Calcium 7.9 L TSH 2.36 Urine Osmolality Ur Random Sodium Urine Creatinine Assessment and Plan (1) Sepsis: Status: Acute (2) COVID-19: Status: Acute (3) NORMAN (acute kidney injury): Status: Acute (4) Acute hypokalemia: Status: Acute Plan 61-year-old female who presents to the hospital with tachycardia, tachypnea, as well as fever found to have sepsis secondary to COVID-19 infection # viral sepsis d/t covid -clinically resolved - has no other source of infection at this time, with chest x-ray being negat kevin, UA negative # COVID-19 infection--O2 sat 97 on room air - no hypoxia, no chest x-ray evidence of infiltrate -no indication for steroid or Remdesevir at this time # NORMAN--resolved - likely secondary to dehydration from diarrhea - IVF - daily BMP BMP # Acute hypOkalemia - resolved #Diarrhea--from covid and is getting better, negative cdif, imdium, nearly resolved now #HypOnatremia, acute on chronic--Likely multifactorial including Chlorthalidone (but has not been on this in the hospital) , increased water intake., -Not tolerating salt , improving with urea 30 bid, monitor for 1 more day and likely dc tomorrow DVT prophylaxis: Lovenox Need for inpatient: Severe Hyponatremia needing frequent level checks and fluid management Quality Stroke Does the patient have a stroke diagnosis?: No VTE Prior VTE?: No VTE Risk Level:: Medical - moderate - high VTE Device Contraindication: N/A - Device Ordered VTE Drug Contraindication: N/A - Med Ordered
[2021-12-12] MEDS: Acetaminophen 325 MG TABLET 650 MG PO ×2 (01:04→16:00)
[2021-12-12] MEDS: LORazepam 0.5 MG TABLET PO (01:04)
[2021-12-12] MEDS: HYDROmorphone HCl 0.5 MG/0.5 ML SYRINGE IVPUSH (02:03)
[2021-12-12 07:25] VITALS: BP 138/68; PULSE 73; RESP 17; TEMP 36.1; O2SAT 94
[2021-12-12 08:12] LABS: Anion Gap 13 (12-20); Carbon Dioxide 25 mmol/L (22-29); Chloride 94 mmol/L (96-108); Creatinine Clr Calc Pharmacy 55.1; Estimated Glomerular Filt Rate 50; Glucose Random 86 mg/dL (60-115); Potassium 3.8 mmol/L (3.3-5.1); Sodium 128 mmol/L (135-145)
--- NOTE | 2021-12-12 08:25 | HO.PM.IMPN ---
Subjective Subjective Date of Service: 12/12/21 Interval History: f/u on NORMAN, covid 19/ Hyponatremia Nausea is better, no diarrhea, sodium is up to 128, generall feels very weak Review of Systems no sob no feve no cough Physical Exam Vital Signs: Vital Signs: Last Vital Signs Temp 97.0 F 12/12/21 07:25 Pulse 73 12/12/21 07:25 Resp 17 12/12/21 07:25 BP 138/68 12/12/21 07:25 Pulse Ox 94 12/12/21 07:25 O2 Del Method 12/12/21 07:25 O2 Flow Rate 2 12/07/21 21:03 BMI result Body Mass Index 30.4 Const: Other: General: AO X 3, no acute distress Resp: CTA bilateral CVS: S1,S2,RRR GI: +BS, NT, no distention Skin: No rash Neuro: motor grossly intact Psych: appropriate affect Objective Data Active Medications Acetaminophen (Acetaminophen 325 Mg Tablet) 650 mg PO Q6H PRN PRN Reason: Pain, Mild (Pain Scale 1-3) Last Admin: 12/12/21 01:04 Dose: 650 mg Documented By: BUTCH Albuterol Sulfate (Albuterol Sulfate 90 Mcg 8 Gm Inhaler) 2 puff INHALE Q4H PRN PRN Reason: Shortness Of Breath Cyanocobalamin (Cyanocobalamin (Vitamin B-12) 1,000 Mcg Tablet) 1,000 mcg PO DAILY [facility] Last Admin: 12/11/21 09:18 Dose: 1,000 mcg Documented By: MILTON Docusate Sodium (Docusate Sodium 100 Mg Capsule) 100 mg PO DAILY PRN PRN Reason: Constipation Enoxaparin Sodium (Enoxaparin Sodium 40 Mg/0.4 Ml Syringe) 40 mg SUBCUT Q24H [facility] Last Admin: 12/11/21 23:00 Dose: 40 mg Documented By: DORYS Hydromorphone HCl (Hydromorphone Hcl 0.5 Mg/0.5 Ml Syringe) 0.5 mg IVPUSH Q4H PRN; Protocol PRN Reason: Breakthrough Pain Last Admin: 12/12/21 02:03 Dose: 0.5 mg Documented By: BUTCH Loperamide HCl (Loperamide Hcl 2 Mg Capsule) 2 mg PO Q4H PRN PRN Reason: Diarrhea Last Admin: 12/09/21 20:36 Dose: 2 mg Documented By: MARCELA Lorazepam (Lorazepam 0.5 Mg Tablet) 0.5 mg PO DAILY PRN PRN Reason: Anxiety Last Admin: 12/12/21 01:04 Dose: 0.5 mg Documented By: BUTCH Multivitamins/Vitamin C (Multivitamin Tablet) 1 tab PO DAILY [facility] Last Admin: 12/11/21 09:18 Dose: 1 tab Documented By: MITLON Ondansetron HCl (Ondansetron Hcl 4 Mg/2 Ml Vial) 4 mg IVPUSH Q8H PRN PRN Reason: Nausea and Vomiting Last Admin: 12/11/21 21:51 Dose: 4 mg Documented By: DORYS Sodium Chloride (0.9 % Sodium Chloride Flush 3 Ml Syringe) 3 ml IVFLUSH QSHIFT [facility] Last Admin: 12/11/21 21:41 Dose: 3 ml Documented By: DORYS Sodium Chloride (Sodium Chloride Tab 1 Gm Tablet) 2 gm PO BID [facility] Last Admin: 12/11/21 21:40 Dose: Not Given Documented By: DORYS Non-Admin Reason: Patient Refused Urea (Urea 15 Gm Powder) 3 gm PO BID [facility] Last Admin: 12/11/21 22:54 Dose: Not Given Documented By: DORYS Non-Mildred Reason: ? wrong dose contact Vitamin D (Cholecalciferol (Vitamin D3) 25 Mcg Tablet) 25 mcg PO DAILY [facility] Last Admin: 12/11/21 09:18 Dose: 25 mcg Documented By: MILTON Labs CBC & Chem 7: 12/05/21 11:54 12/12/21 06:33 Labs: Laboratory Results - last 24 hr 12/11/21 12/12/21 06:18 06:33 Anion Gap 13 Estim Creat Clear Calc 55.1 Estimated GFR 50 Random Glucose 86 Osmolality 263 L Assessment and Plan (1) Sepsis: Status: Acute (2) COVID-19: Status: Acute (3) NORMAN (acute kidney injury): Status: Acute (4) Acute hypokalemia: Status: Acute Plan 61-year-old female who presents to the hospital with tachycardia, tachypnea, as well as fever found to have sepsis secondary to COVID-19 infection # viral sepsis d/t covid -clinically resolved - has no other source of infection at this time, with chest x-ray being negative, UA negative # COVID-19 infection--O2 sat 97 on room air - no hypoxia, no chest x-ray evidence of infiltrate -no indication for steroid or Remdesevir at this time # NORMAN--resolved - likely secondary to dehydration from diarrhea - IVF - daily BMP BMP # Acute hypOkalemia - resolved #Diarrhea--from covid and is getting better, negative cdif, imdium, nearly resolved now #HypOnatremia, acute on chronic--Likely multifactorial including Chlorthalidone (but has not been on this in the hospital) , increased water intake., -Not tolerating salt , improving with urea 3 bid, was supposed to be 30 bid. Sodium is up to 128 and therefore likely doens't need urea anymore Out of bed and ambulate and if ok can go home if not then will need rehab which will be challenging because of covid positive status DVT prophylaxis: Lovenox Need for inpatient: Severe Hyponatremia needing frequent level checks and fluid management Quality Stroke Does the patient have a stroke diagnosis?: No VTE Prior VTE?: No VTE Risk Level:: Medical - moderate - high VTE Device Contraindication: N/A - Device Ordered VTE Drug Contraindication: N/A - Med Ordered
[2021-12-12 08:33] LABS: Blood Urea Nitrogen 21 mg/dL (9-16)
[2021-12-12] MEDS: Multivitamin TABLET 1 TAB PO (08:41)
[2021-12-12] MEDS: Cyanocobalamin (Vitamin B-12) 1,000 MCG TABLET 1000 MCG PO (08:41)
[2021-12-12] MEDS: Cholecalciferol (Vitamin D3) 25 MCG TABLET PO (08:41)
[2021-12-12 12:00] VITALS: BP 130/68; PULSE 80; RESP 20; TEMP 36.3; O2SAT 94
[2021-12-12] MEDS: 0.9 % Sodium Chloride Flush 3 ML SYRINGE IVFLUSH ×3 (12:57→23:23)
[2021-12-12 15:52] VITALS: BP 140/58; PULSE 80; RESP 19; TEMP 36.5; O2SAT 97
[2021-12-12 20:00] VITALS: BP 127/83; PULSE 79; RESP 18; TEMP 36.2; O2SAT 95
[2021-12-12] MEDS: Urea 15 GM POWDER 30 GM PO (22:56)
[2021-12-12] MEDS: Sodium Chloride Tab 1 GM TABLET 2 GM PO (22:57)
[2021-12-12] MEDS: Enoxaparin Sodium 40 MG/0.4 ML SYRINGE SUBCUT (22:57)
[2021-12-12 23:53] VITALS: BP 136/69; PULSE 77; RESP 14; TEMP 36.2; O2SAT 96
[2021-12-13 03:54] VITALS: BP 143/70; PULSE 82; RESP 18; TEMP 36.8; O2SAT 96
[2021-12-13 06:42] LABS: Anion Gap 12 (12-20); Blood Urea Nitrogen 41 mg/dL (9-16); Calcium 10.1 mg/dL (8.4-10.2); Carbon Dioxide 26 mmol/L (22-29); Chloride 100 mmol/L (96-108); Creatinine Clr Calc Pharmacy 52.7; Estimated Glomerular Filt Rate 47; Glucose Random 114 mg/dL (60-115); Potassium 4.3 mmol/L (3.3-5.1); Sodium 134 mmol/L (135-145)
[2021-12-13 07:33] VITALS: BP 137/66; PULSE 77; RESP 20; TEMP 36.3; O2SAT 94
[2021-12-13] MEDS: Multivitamin TABLET 1 TAB PO (09:27)
[2021-12-13] MEDS: Cholecalciferol (Vitamin D3) 25 MCG TABLET PO (09:27)
[2021-12-13] MEDS: Sodium Chloride Tab 1 GM TABLET 2 GM PO (09:27)
[2021-12-13] MEDS: 0.9 % Sodium Chloride Flush 3 ML SYRINGE IVFLUSH (09:27)
[2021-12-13] MEDS: Urea 15 GM POWDER 30 GM PO (09:27)
[2021-12-13] MEDS: Cyanocobalamin (Vitamin B-12) 1,000 MCG TABLET 1000 MCG PO (09:27)
--- NOTE | 2021-12-13 11:08 | PM.DS ---
DS: Providers Provider Date of Service: 12/13/21 Date of admission: 12/04/21 23:35 Primary care physician: Parminder Weiner MD Consults: 12/05/21 06:46 Consult to Infectious Diseases Routine Consulting Provider: Kayce Dumont Reason for consultation: sepsis due to Covid. Remdesivir? 12/08/21 10:26 Consult to Nephrology Routine Consulting Provider: Jesús Pinon Reason for consultation: Hyponatremia Has provider been notified: No DS: Diagnosis Discharge Diagnosis (1) Sepsis: Status: Acute (2) COVID-19: Status: Acute (3) NORMAN (acute kidney injury): Status: Acute (4) Acute hypokalemia: Status: Acute DS: Summary Hospital Course Hospital Course: Admission HPI Chief Complaint: weakness, chills This is a 61-year-old female with past medical history of hypertension presents to the hospital with complaints of chills, weakness, along with nausea vomiting and fever that started about a day ago.? Patient is significantly weak, she is slightly confused although able to answer questions appropriately.? Patient reports she? had sudden onset shivering and chills. Patient reports being vaccinated against COVID-19.? Patient denies any chest pain, no shortness of breath, no cough, no abdominal pain, no diarrhea or constipation, no urinary symptoms and no lower extremity edema.? On arrival to the ED patient found to have a temperature of 104.4 that spiked to 105.1, heart rate of 135 sinus, respiratory rate of 28 , patient was also found to be hypertensive with a blood pressure of 90/21 satting 97% on room air Labs are significant for WBC count 5.0, hemoglobin of 11, hematocrit 32, sodium of 134, potassium 3.2, creatinine of 1.66 with no baseline for comparison, lactic acid of 2.1, COVID-19 positive.? Chest x-ray shows no acute cardiopulmonary findings Patient will be admitted for further management Hospital course: # viral sepsis d/t covid--resolved without any speicific intervention # COVID-19 infection with only manifestation of diarrhea, no respiratory symptoms and no specific covid treatement.. Fully recovered. #Diarrhea--due to covid, negative cdif, and later treated with imodium.. Diarrhea has completely resolved # NORMAN--was due to dehydraion fro diarrhea.. renal function quickly normalized from 1.6 to now 1.1 with IVF fluid # Acute hypOkalemia--due to diarrhea, resolved quickly #HypOnatremia, acute on chronic-- likely from delayed effect of thiazide diuretic (Chlorthalidone) which discontinued. She was treated with salt tabs which she did not tolerated and had lots of nausea and vomitting and then she was subsequently given urea 3 gram twice a day with steady in crease in sodium and presently 134. Will stop chlorthalidone and add Norvasc for HTN #HTN--BPs have been in 140 mostly, at time 150 and presently 137/66, adding Norvasc 2.5 mg daily Time Spent with Patient Time attestation: Total time spent providing and/or coordinating discharge services: Discharge coordination time: Greater than 30 minutes Quality: Safe Use of Opioids Does Pt have an Active Cancer Diagnosis on the Problem List?: No Quality: Stroke Does the patient have a stroke diagnosis?: No Physical Exam Vital Signs: Vital Signs: Last Vital Signs Temp 97.4 F 12/13/21 07:33 Pulse 77 12/13/21 07:33 Resp 20 12/13/21 07:33 BP 137/66 12/13/21 07:33 Pulse Ox 94 12/13/21 07:33 O2 Del Method 12/13/21 07:33 O2 Flow Rate 2 12/07/21 21:03 BMI result Body Mass Index 30.4 DS: Data Data Completed and Pending Labs on day of discharge: Laboratory Results - last 24 hr 12/13/21 06:05 Sodium 134 L Potassium 4.3 Chloride 100 Carbon Dioxide 26 Anion Gap 12 BUN 41 H D Creatinine 1.16 Estim Creat Clear Calc 52.7 Estimated GFR 47 Random Glucose 114 Calcium 10.1 D Discharge Plan Discharge Anticipated Discharge Date/Time: 12/13/21 11:04 Patient Disposition: Home, Self-Care Discharge Diagnosis: Covid 19, Diarrhea, Hyponatremia, NORMAN Referrals: Parminder Weiner MD [Primary Care Provider] - 1 Week Discharge Medications: New amlodipine 2.5 mg Tablet 2.5 mg PO DAILY Qty: 30 0RF Protocol: Hold for SBP< HOLD for SBP < : 90 Continued multivitamin Tablet 1 tab PO DAILY cyanocobalamin (vitamin B-12) 1,000 mcg Tablet 1,000 mcg PO DAILY lorazepam 0.5 mg tablet 1 tab PO DAILY PRN (Reason: Anxiety) albuterol sulfate [ProAir HFA] 90 mcg/actuation Hfa Aerosol Inhaler 2 puff INHALATION Q4-6H PRN (Reason: Shortness Of Breath) cholecalciferol (vitamin D3) 25 mcg (1,000 unit) Tablet 25 mcg PO DAILY turmeric root extract 500 mg Capsule 500 mg PO DAILY Discontinued chlorthalidone 25 mg tablet 1 tab PO DAILY Discharge Orders: Discharge Order (Routine); Ordered 12/13/21 Ordered By: Jim Saravia Diet: Advance to usual diet Activity on Discharge: As tolerated Stand Alone Forms: Patient Portal Discharge page Care Plan Goals: full recovery from covid, hyponatremia, diarrhea and renal failure Health Concerns: Hyponatremia, high blood pressure, covid, renal failure Plan of Treatment: your sodium level was low due to Chlorthalidone and so don't take it again Covid related diarrhea is now resolved Stop taking Chlorthalidone for high blood pressure Take Norvasc 2.5 mg daily for high blood pressure Follow up with your Doctor in a week, call for appointment Assessment: as above
[2021-12-13 11:18] VITALS: BP 133/66; PULSE 69; RESP 20; TEMP 36.4; O2SAT 96
[2021-12-13] MEDS: amLODIPine Besylate 2.5 MG TABLET PO (11:26)
--- NOTE | 2021-12-13 12:31 | MHC.CM.PN ---
PER HOSPITALIST PT MEDICALLY CLEARED FOR D/C HOME NO SERVICES W/ [facility] FOR TRANSPORT.
== END 2021-12-13 17:14 | disposition home or self-care (01) | DRG 720 ==
LOC: HO.ED 12-05 00:05 → HO.EDOVER 12-05 07:22 → HO.ED 12-05 11:54 → HO.EDOVER 12-05 12:02 → HO.IMC 12-08 01:49
PROVIDERS: Internal Medicine; Internal Medicine Nephrology; Admitting Provider Internal Medicine; Emergency Provider Emergency Medicine; PCP Pediatrics; Visit Provider Internal Medicine
DX: A41.89 Other specified sepsis (principal); U07.1 COVID-19; N17.9 Acute kidney failure, unspecified; E87.1 Hypo-osmolality and hyponatremia; A08.39 Other viral enteritis; E86.0 Dehydration; E87.6 Hypokalemia; I10 Essential (primary) hypertension; Z79.899 Other long term (current) drug therapy
CPT/HCPCS: 36415; 71045; 80048; 80051; 80076; 81003; 83605; 83930; 83935; 84133; 84295; 84300; 84443; 84550; 85025; 87040; 87493; 87635; 93005; 96361; 96374; 97162; 99284; 99285; J1170; J1650; J1940; J2405

== ENCOUNTER 2022-03-17 14:37 | Outpatient (REF) | payer BC, SELFPAY ==
[2022-03-17 15:09] LABS: MANUAL DIFF FLAG NO
[2022-03-17 16:07] LABS: Basophils Absolute Auto 0.1 X10*3/uL (0.0-0.2); Eosinophils Absolute Auto 0.3 X10*3/uL (0.0-0.4); Hematocrit 36.1 % (37.0-47.0); Hemoglobin 12.4 g/dl (12.0-16.0); Imm Gran Abs Auto 0.01 X10*3/uL (0.00-0.03); Imm Gran Pct Auto 0.2 % (0.0-0.4); Lymphocytes Absolute Auto 2.2 X10*3/uL (1.2-4.9); Lymphocytes Percent Auto 34.9 % (20-40); Mean Corpuscular HGB Conc 34.3 g/dl (31.0-35.0); Mean Corpuscular Volume 87.4 fL (80.0-98.0); Monocytes Absolute Auto 0.4 X10*3/uL (0.1-1.2); Monocytes Percent Auto 6.3 % (2-11); Neutrophils Absolute Auto 3.4 x10*3/uL (2.0-8.3); Neutrophils Percent Auto 53.6 % (45-73); Platelet Count 305 X10*3/uL (160-400); Red Blood Count 4.13 X10*6/uL (4.20-5.50); Red Cell Distribution Width 12.8 % (11.0-16.0); White Blood Count 6.2 X10*3/uL (4.8-10.8)
[2022-03-17 16:42] LABS: Anion Gap 15 (12-20); Blood Urea Nitrogen 20 mg/dL (9-16); Calcium 10.2 mg/dL (8.4-10.2); Carbon Dioxide 25 mmol/L (22-29); Chloride 101 mmol/L (96-108); Estimated Glomerular Filt Rate 48; Glucose Random 78 mg/dL (60-115); Potassium 3.9 mmol/L (3.3-5.1); Sodium 137 mmol/L (135-145)
[2022-03-17 17:17] LABS: Folate > 20.0 ng/mL (> or = 4.0); Vitamin B12 1683 pg/mL (200-900)
[2022-03-21 16:47] LABS: Lyme Abs Screen <0.90 index
[2022-03-23 10:27] LABS: IgA 110 mg/dL (70-320); IgG 1108 mg/dL (600-1540); IgM 124 mg/dL (50-300)
== END 2022-03-17 14:38 | disposition home or self-care (01) ==
LOC: HO.LAB 14:37
PROVIDERS: PCP Pediatrics; Visit Provider Psychiatry & Neurology Neurology
DX: G62.9 Polyneuropathy, unspecified (principal); D64.9 Anemia, unspecified
CPT/HCPCS: 36415; 80048; 82550; 82607; 82746; 82784; 85025; 86334; 86617; 86618

== ENCOUNTER 2025-02-18 15:48 | Outpatient (AMB) | payer MEDICARE, SELFPAY ==
--- NOTE | 2025-02-18 16:08 | MHC.OFFVIS ---
Intake Visit Reasons: 6M PN Accompanied by: Spouse Allergies No Known Allergies Allergy (Verified 02/18/25 16:11) Medication List - Last Reconciled 02/18/25 by Elsy Peace CNP albuterol sulfate 90 mcg/actuation (ProAir HFA) 2 puffs inhalation Q4-6H PRN amlodipine 2.5 mg See Protocol PO DAILY cholecalciferol (vitamin D3) 25 mcg PO DAILY cyanocobalamin (vitamin B-12) 1,000 mcg PO DAILY lorazepam 1 tab PO DAILY PRN multivitamin 1 tab PO DAILY pregabalin 100 mg PO DAILY 90 days turmeric root extract 500 mg PO DAILY HPI Comments Details: 64-year-old woman with chronic arthritis, peripheral neuropathy and associated pain, anxiety, and difficulty walking. She was doing okay. Neuropathic pain in legs was controlled with pregabalin. She was having some pain arthritis pains to knees and hands. She was walking with walker, no falls. Sleep was okay. [facility] Medical History Hypertension Surgical History No pertinent past surgical history Family History Other No family history of coronary artery disease Social History Household Members: Spouse Housing: House Do you presently have visiting nurse or other home services: No Alcohol intake: never Patient Tobacco Use Status: Never used Tobacco service: No Current occupational status: retired Review of Systems Const Denies chills, Denies daytime sleepiness, Denies difficulty sleeping, Denies fatigue, Denies fever(s), Denies frequent falls, Denies headache(s), Denies increased appetite, Denies poor appetite, Denies snoring, Denies weakness, Denies weight gain and Denies weight loss Eyes Denies loss of vision ENT Denies vertigo, Denies dizziness and Denies headache(s) Card Denies chest pain at rest, Denies chest pain with activity, Denies syncope, Denies leg edema and Denies palpitations Resp Denies snoring GI Denies constipation, Denies heartburn, Denies diarrhea and Denies nausea Denies urinary frequency, Denies urinary incontinence and Denies urinary urgency Musc Denies abnormal gait, Denies numbness and Denies tingling Skin/Breast Denies dry skin and Denies rash Neuro Denies abnormal gait, Denies vertigo, Denies dizziness, Denies syncope, Denies frequent falls, Denies headache(s), Denies lack of coordination, Denies loss of vision, Denies memory loss, Denies numbness, Denies restless legs, Denies seizure-like activity, Denies tingling, Denies paresthesias, Denies tremor(s) and Denies weakness Psych Reports anxiety, Denies depression, Denies auditory hallucinations, Denies memory loss, Denies visual hallucinations and Denies suicidal ideation Endo Denies fatigue and Denies palpitations Physical Exam Const Other: General Appearance:? normal, in no acute distress. Skin:? no rashes, no significant birthmarks. Heart:? S1, S2 normal, no murmurs. Lungs:? clear anteriorly and posteriorly. Extremities:? no edema. Psych:? alert, oriented, cognitive function intact, cooperative with exam. Neuro Other: Mental Status:?Normal attention, orientation, memory and affect.? Cranial Nerves:?Pupils are equal, round and reactive to light. External occular muscles are intact. Visual yanez are full. Face is symmetrical. Facial sensations are normal. Tongue is midline. Palate elevates symmetrically. Shoulder shrugging is normal. Hearing to bedside conversation is normal. Sensory Exam:?....? Coordination:?No ataxia,?no titubation.? Gait Exam: Slow and cautious. Cerebellar Signs:?[id number] is okay. Extrapyramidal System:?No tremor, rigidity with normal facial expressions.? Pronator Drift:?Not present.? Involuntary Movements:?No tremors seen.? Speech:?Normal.? Results Reviewed Results Reviewed: EMG/NCS LEs at off in Mar 2022: mod severe SM axonal PN Assessment & Plan Assessment & Plan (1) Peripheral neuropathy: Code(s): G62.9 - Polyneuropathy, unspecified Category: Medical Qualifiers: Peripheral neuropathy type: polyneuropathy, unspecified Qualified Code(s): G62.9 - Polyneuropathy, unspecified Plan: Continue pregabalin 100mg 1 capsule daily. (2) Anxiety: Code(s): F41.9 - Anxiety disorder, unspecified Category: Medical (3) Arthritis: Code(s): M19.90 - Unspecified osteoarthritis, unspecified site Category: Medical Plan Meds tried: gabapentin, carbamazepine, duloxetine Coding Level of Care Code Est Pt Level 4 (86671) Diagnoses Peripheral polyneuropathy G62.9 Peripheral neuropathy type: polyneuropathy, unspecified Anxiety F41.9 Arthritis M19.90
--- OUTSIDE RECORDS SUMMARY | 2025-02-18 16:58 | XMS_ITS | Clinical Summary ---
Author Organization [facility] Facility Address [address] [address] Care Team Providers Care Business Quality Assurance Analyst Name Role Phone Parminder Weiner MD Primary Care Provider [phone] Social History Tobacco Use Types Packs/Day Years Used Date Smoking Tobacco: Never Assessed Comments Unknown Sex and Gender Information Value Date Recorded Sex Assigned at Not on file Legal Sex Female 10:43 AM EDT Gender Identity Not on file Sexual Orientation Not on file Plan of Treatment Health Maintenance Due Date Last Done Comments Breast Cancer Screening 1960 Colorectal Cancer Screening: Annual FOBT 08/09/2007 Colorectal Cancer Screening: Colonoscopy 08/09/2007 Colorectal Cancer Screening: Sigmoidoscopy 08/09/2007 Pneumococcal Vaccine: 50+ Ye ars (1 of 1 - PCV) 2008 Influenza Vaccine (#1) 2025 Hepatitis B Vaccine Aged Out No longe r eligible based on patient's age to complete this topic Insurance [facility] Care Teams Business Quality Assurance Analyst Relationship Specialty Start Date End Date Parminder Weiner MD [address] [id number] PCP - General Internal Medicine 12/09/21
--- OUTSIDE RECORDS SUMMARY | 2025-02-18 16:59 | XMS_ITS | Data Portability ---
Author Organization [facility], Main Office Address [address] [place] [address] Care Team Providers Care Mason Liner Name Role Phone BRYANT PARMINDER Primary Care Provider [facility] OTHER [phone] ODELL RUBIO Neurologist Assessment Encounter Date Assessment Date Assessment LastModified by Organization Details LastModified Time 07/07/2023 07/07/2023 This service was provided using telemedicine. Patient consented to video & audio visit Patient was located in the [facility]. Provider was located in the office. No other persons participated in the telemedicine visit except for the patient unless otherwise indicated here. Total time of visit was 26 minutes. [email or web address] Not available 07/10/2023 08:10:39 07/26/2024 07/26/2024 This service was provided using telemedicine. Patient consented to video & audio visit Patient was located in the [facility]. Provider was located in the office. No other persons participated in the telemedicine visit except for the patient unless otherwise indicated here. Total time of visit was 25 minutes. [email or web address] Not available 07/26/2024 13:37:38 Plan of Treatment Reminders Order Date Submit Date Provider Last Modified By Organization Details Last Modified Time Details Appointments None recorde d. Lab TSH + free T4, serum 2024 025 GIOVANNI [facility] (Centralized Electronic Ordering - All Locations), Patient Can Go To The Location Of Their Choice, [id number] 08:08:22 urinaly sis, complet e 2024 025 [email or web address] [facility] (Centralized Electronic Ordering - All Locations), Patient Can Go To The Location Of Their Choice, [address] 10:05:36 Referral alejo gardner/sheron gross 2024 025 [email or web address] Not available 10:24:02 Procedures None recorde d. Surgeries None recorde d. Imaging None recorde d. Medication Orders sertral ine 50 mg tablet 2024 025 [facility]/Pharmacy #[id number], [address] [place], [address], 13:33:19 ProAir HFA 90 mcg/act uation aerosol inhaler 2024 025 [id number] [address] [place], [address], 13:33:20 sertral ine 100 mg tablet 2024 025 [facility]armacy #[id number], [address] [place], [address], 15:46:37 Patient TargetsNo targets recorded. Patient Instructions Encounter Date Encounter Id Patient Instructions Last Modified By Organization Details Last Modified Time 07/07/2023 [id number] high cholesterol: care instructions césar Not available 07/10/2023 08:30:12 06/13/2024 [id number] high blood pressure: care instructions [email or web address] Not available 06/13/2024 15:54:06 learning about high blood pressure awychowski Not available 06/13/2024 15:54:05 preventing falls: care instructions [email or web address] Not available 06/13/2024 15:54:06 well visit, over 65: care instructions [email or web address] Not available 06/13/2024 15:54:05 learning about colon cancer awychowski Not available 06/13/2024 15:54:06 colon cancer screening: care instructions [email or web address] Not available 06/13/2024 15:54:06 When You Want to Lose Weight: Care Instructions [email or web address] Not available 06/14/2024 07:23:28 Nutrition Referral and Weight Management Follow-up Information césar Not available 06/14/2024 07:23:27 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 for Body mass index 25-29 - overweight Referring Physician: Parminder Weiner, Family Medicine, Encounter Date: 06/13/2024 Results Created Date Observation Date Name Description Value Unit Range Abnormal Flag Note LastModifiedBy Organization Detail LastModifiedTime 11/24/1911/24/2023 COLOG UARD cologuard result CANCEL LED - ORDER D not applic able Not Available [facility] (Cologuard Orders Only) [address], [place], [address], 11/24/2023 11:15:19 02/25/2002/24/2023 COMPR EHENS MARQUISE METAB OLIC PANL glucose 86 mg/dL (70-99 ) Not Available [facility] (Centralized Electronic Ordering - All Locations) Patient Can Go To The Location Of Their Choice, [id number] 02/24/2023 14:56:13 02/25/2002/24/2023 COMPR EHENS MARQUISE METAB OLIC PANL BUN 17 mg/dL (8-23) Not Available [facility] (Centralized Electronic Ordering - All Locations) Patient Can Go To The Location Of Their Choice, [id number] 02/24/2023 14:56:13 02/25/2002/24/2023 COMPR EHENS MARQUISE METAB OLIC PANL creatinine 1.1 mg/dL (0.5-1 .0) high Not Available [facility] (Centralized Electronic Ordering - All Locations) Patient Can Go To The Location Of Their Choice, [id number] 02/24/2023 14:56:13 02/25/2002/24/2023 COMPR EHENS MARQUISE METAB OLIC PANL sodium 138 mmol/ L (133-1 45) Not Available [facility] (Centralized Electronic Ordering - All Locations) Patient Can Go To The Location Of Their Choice, [id number] 02/24/2023 14:56:13 02/25/2002/24/2023 COMPR EHENS MARQUISE METAB OLIC PANL potassium 4.0 mmol/ L (3.6-5 .2) Not Available [facility] (Centralized Electronic Ordering - All Locations) Patient Can Go To The Location Of Their Choice, 02/24/2023 14:56:13 02/25/2002/24/2023 COMPR EHENS MARQUISE METAB OLIC PANL chloride 103 mmol/ L (98-10 7) Not Available [facility] (Centralized Electronic Ordering - All Locations) Patient Can Go To The Location Of Their Choice, 02/24/2023 14:56:13 02/25/2002/24/2023 COMPR EHENS MARQUISE METAB OLIC PANL bicarbonate 27 mmol/ L (22-29 ) Not Available [facility] (Centralized Electronic Ordering - All Locations) Patient Can Go To The Location Of Their Choice, 02/24/2023 14:56:13 02/25/2002/24/2023 COMPR EHENS MARQUISE METAB OLIC PANL anion gap 8 (4-17) Not Available [facility] (Centralized Electronic Ordering - All Locations) Patient Can Go To The Location Of Their Choice, 02/24/2023 14:56:13 02/25/2002/24/2023 COMPR EHENS MARQUISE METAB OLIC PANL albumin 4.6 gm/dL (3.4-4 .8) Not Available [facility] (Centralized Electronic Ordering - All Locations) Patient Can Go To The Location Of Their Choice, 02/24/2023 14:56:13 02/25/2002/24/2023 COMPR EHENS MARQUISE METAB OLIC PANL calcium 9.6 mg/dL (8.6-1 0.5) Not Available [facility] (Centralized Electronic Ordering - All Locations) Patient Can Go To The Location Of Their Choice, 02/24/2023 14:56:13 02/25/2002/24/2023 COMPR EHENS MARQUISE METAB OLIC PANL bilirubin,to adela 0.6 mg/dL (0-1.2 ) Not Available [facility] (Centralized Electronic Ordering - All Locations) Patient Can Go To The Location Of Their Choice, 02/24/2023 14:56:13 02/25/2002/24/2023 COMPR EHENS MARQUISE METAB OLIC PANL total protein 6.7 gm/dL (6.2-8 .2) Not Available [facility] (Centralized Electronic Ordering - All Locations) Patient Can Go To The Location Of Their Choice, 02/24/2023 14:56:13 02/25/2002/24/2023 COMPR EHENS MARQUISE METAB OLIC PANL Ag ratio 2.2 Not Available [facility] (Centralized Electronic Ordering - All Locations) Patient Can Go To The Location Of Their Choice, 02/24/2023 14:56:13 02/25/2002/24/2023 COMPR EHENS MARQUISE METAB OLIC PANL AST 21 U/L (0-32) Not Available [facility] (Centralized Electronic Ordering - All Locations) Patient Can Go To The Location Of Their Choice, 02/24/2023 14:56:13 02/25/2002/24/2023 COMPR EHENS MARQUISE METAB OLIC PANL alk phos 69 U/L (35-10 4) Not Available [facility] (Centralized Electronic Ordering - All Locations) Patient Can Go To The Location Of Their Choice, 02/24/2023 14:56:13 02/25/2002/24/2023 COMPR EHENS MARQUISE METAB OLIC PANL ALT 13 U/L (0-33) Not Available [facility] (Centralized Electronic Ordering - All Locations) Patient Can Go To The Location Of Their Choice, 02/24/2023 14:56:13 02/25/2002/24/2023 COMPR EHENS MARQUISE METAB OLIC PANL estimated GFR creatinine 54 mL/mi n/1.7 3_M2 Creat inine based estim ated marthame trevar filtr ation (eGFR ) in adult s is calcu lated using the Natio nal Kidne y Found ation recom edyta d 2020 CKD-E PI equat ion. Estim ates GFR from serum creat inine , age and sex. Not Available [facility] (Centralized Electronic Ordering - All Locations) Patient Can Go To The Location Of Their Choice, 02/24/2023 14:56:13 02/25/2002/24/2023 PHOSP HORUS phosphorus 4.4 mg/dL (2.5-4 .5) Not Available [facility] ([facility] Ordering - All Locations) Patient Can Go To The Location Of Their Choice, 02/24/2023 14:56:14 02/25/2002/24/2023 LIPID PANEL cholesterol, total 253 mg/dL (<200) high Not Available [facility] ([facility] Order[facility] - All Locations) Patient Can Go To The Location Of Their Choice, 02/24/2023 14:56:15 02/25/2002/24/2023 LIPID PANEL triglyceride 205 mg/dL (<150) high Not Available [facility] ([facility] Order[facility] - All Locations) Patient Can Go To The Location Of Their Choice, 02/24/2023 14:56:15 02/25/2002/24/2023 LIPID PANEL HDL chol 41 mg/dL (>39) Not Available [facility] (Centralized Electronic Ordering - All Locations) Patient Can Go To The Location Of Their Choice, 02/24/2023 14:56:15 02/25/2002/24/2023 LIPID PANEL LDL cholesterol, calculated 171 mg/dL (0-130 ) high Not Available [facility] ([facility]ized Electronic Ordering - All Locations) Patient Can Go To The Location Of Their Choice, 02/24/2023 14:56:15 02/25/2002/24/2023 LIPID PANEL non HDL cholesterol (calc) 212 mg/dL (<160) high Not Available [facility] ([facility] Ordering - All Locations) Patient Can Go To The Location Of Their Choice, 02/24/2023 14:56:15 02/25/2002/24/2023 PTH, INTAC T PTH, intact 43 pg/mL (15-65 ) Not Available [facility] ([facility]ized [facility] Ordering - All Locations) Patient Can Go To The Location Of Their Choice, 02/24/2023 15:15:26 02/25/2002/24/2023 TSH WITH REFLE X TO FT4 TSH 3.76 uIU/m L (0.4-4 .2) Not Available [facility] ([facility] Electronic Ordering - All Locations) Patient Can Go To The Location Of Their Choice, 02/24/2023 15:15:35 02/25/2002/24/2023 25OH VITAM IN D 25OH vitamin D 42.7 NG/mL (20-50 ) Not Available [facility] ([facility] Electronic Ordering - All Locations) Patient Can Go To The Location Of Their Choice, 02/24/2023 15:15:36 02/25/2002/24/2023 LAB ONLY URINA LYSIS appear/color LIGHT YELLO W CLEAR Not Available [facility] (Centralized Electronic Ordering - All Locations) Patient Can Go To The Location Of Their Choice, 02/24/2023 15:57:10 02/25/2002/24/2023 LAB ONLY URINA LYSIS sp. gravity 1.017 (1.002 -1.030 ) Not Available [facility] ([facility]ized Electronic Ordering - All Locations) Patient Can Go To The Location Of Their Choice, 02/24/2023 15:57:10 02/25/2002/24/2023 LAB ONLY URINA LYSIS urine pH 5.5 (5.0-8 .0) Not Available [facility] (Centralized Electronic Ordering - All Locations) Patient Can Go To The Location Of Their Choice, 02/24/2023 15:57:10 02/25/2002/24/2023 LAB ONLY URINA LYSIS urine albumin NEGATI VE (neg) Not Available [facility] ([facility] Ordering - All Locations) Patient Can Go To The Location Of Their Choice, 02/24/2023 15:57:10 02/25/2002/24/2023 LAB ONLY URINA LYSIS urine glucose NEGATI VE (neg) Not Available [facility] ([facility] Ordering - All Locations) Patient Can Go To The Location Of Their Choice, 02/24/2023 15:57:10 02/25/2002/24/2023 LAB ONLY URINA LYSIS urine ketones NEGATI VE (neg) Not Available [facility] ([facility]ized [facility] Ordering - All Locations) Patient Can Go To The Location Of Their Choice, 02/24/2023 15:57:10 02/25/2002/24/2023 LAB ONLY URINA LYSIS urine bilirubin NEGATI VE (neg) Not Available [facility] (Centralized Electronic Ordering - All Locations) Patient Can Go To The Location Of Their Choice, 02/24/2023 15:57:10 02/25/2002/24/2023 LAB ONLY URINA LYSIS urine hemoglobin NEGATI VE (neg) Not Available [facility] ([facility]ized [facility] Ordering - All Locations) Patient Can Go To The Location Of Their Choice, [id number] 02/24/2023 15:57:10 02/25/2002/24/2023 LAB ONLY URINA LYSIS urine nitrite NEGATI VE (neg) Not Available [facility] ([facility] Ordering - All Locations) Patient Can Go To The Location Of Their Choice, [id number] 02/24/2023 15:57:10 02/25/2002/24/2023 LAB ONLY URINA LYSIS urine leukocyte NEGATI VE (neg) Not Available [facility] ([facility] Electronic Ordering - All Locations) Patient Can Go To The Location Of Their Choice, [id number] 02/24/2023 15:57:10 02/25/2002/24/2023 LAB ONLY URINA LYSIS urobilinogen NORMAL mg/dL (norm) Not Available [facility] ([facility] Order[facility] - All Locations) Patient Can Go To The Location Of Their Choice, [id number] 02/24/2023 15:57:10 02/25/2002/24/2023 LAB ONLY URINA LYSIS urine WBCs 1 /hpf (0-5) Not Available [facility] ([facility] Ordering - All Locations) Patient Can Go To The Location Of Their Choice, [id number] 02/24/2023 15:57:10 02/25/2002/24/2023 LAB ONLY URINA LYSIS urine RBCs 1 /hpf (0-3) Not Available [facility] ([facility] Ordering - All Locations) Patient Can Go To The Location Of Their Choice, [id number] 02/24/2023 15:57:10 02/25/2002/24/2023 LAB ONLY URINA LYSIS mucus SLIGHT /lpf Not Available [facility] ([facility]ized Electronic Ordering - All Locations) Patient Can Go To The Location Of Their Choice, 02/24/2023 15:57:10 02/25/2002/24/2023 LAB ONLY URINA LYSIS squamous epith <1 /hpf (0-8) Not Available [facility] ([facility] Order[facility] - All Locations) Patient Can Go To The Location Of Their Choice, 02/24/2023 15:57:10 02/25/2002/24/2023 COMPL ETE CBC WITH DIFF WBC 5.5 K/mm3 (4.0-1 1.0) Not Available [facility] ([facility] Ordering - All Locations) Patient Can Go To The Location Of Their Choice, 02/24/2023 16:48:01 02/25/2002/24/2023 COMPL ETE CBC WITH DIFF RBC 4.15 M/mm3 (4.20- 5.40) low Not Available [facility] ([facility] Ordering - All Locations) Patient Can Go To The Location Of Their Choice, 02/24/2023 16:48:01 02/25/2002/24/2023 COMPL ETE CBC WITH DIFF HGB 12.4 gm/dL (11.7- 15.5) Not Available [facility] ([facility] Ordering - All Locations) Patient Can Go To The Location Of Their Choice, 02/24/2023 16:48:01 02/25/2002/24/2023 COMPL ETE CBC WITH DIFF HCT 38.5 % (35.7- 45.8) Not Available [facility] ([facility]ized [facility] Ordering - All Locations) Patient Can Go To The Location Of Their Choice, 02/24/2023 16:48:01 02/25/2002/24/2023 COMPL ETE CBC WITH DIFF MCV 92.8 fL (80.0- 100.0) Not Available [facility] ([facility] Ordering - All Locations) Patient Can Go To The Location Of Their Choice, 02/24/2023 16:48:01 02/25/2002/24/2023 COMPL ETE CBC WITH DIFF MCH 29.9 pg (27.0- 34.0) Not Available [facility] ([facility] Ordering - All Locations) Patient Can Go To The Location Of Their Choice, 02/24/2023 16:48:01 02/25/2002/24/2023 COMPL ETE CBC WITH DIFF MCHC 32.2 g/dL (33.0- 37.0) low Not Available [facility] ([facility] Order[facility] - All Locations) Patient Can Go To The Location Of Their Choice, 02/24/2023 16:48:01 02/25/2002/24/2023 COMPL ETE CBC WITH DIFF plt 266 K/mm3 (150-4 60) Not Available [facility] ([facility] Ordering - All Locations) Patient Can Go To The Location Of Their Choice, 02/24/2023 16:48:01 02/25/2002/24/2023 COMPL ETE CBC WITH DIFF RDW-SD 44.6 fL (<47.0 ) Not Available [facility] ([facility] Ordering - All Locations) Patient Can Go To The Location Of Their Choice, 02/24/2023 16:48:01 02/25/2002/24/2023 COMPL ETE CBC WITH DIFF MPV 10.0 fL (9.4-1 2.4) Not Available [facility] ([facility] Order[facility] - All Locations) Patient Can Go To The Location Of Their Choice, 02/24/2023 16:48:01 02/25/2002/24/2023 COMPL ETE CBC WITH DIFF automated NRBC 0.0 #/100 _WBC' s Not Available [facility] ([facility] Ordering - All Locations) Patient Can Go To The Location Of Their Choice, 02/24/2023 16:48:01 02/25/2002/24/2023 COMPL ETE CBC WITH DIFF abs. NRBC 0.0 K/mm3 Not Available [facility] ([facility] Order[facility] - All Locations) Patient Can Go To The Location Of Their Choice, 02/24/2023 16:48:01 02/25/2002/24/2023 COMPL ETE CBC WITH DIFF neut # 2.0 K/mm3 (1.3-7 .0) Not Available [facility] ([facility] Order[facility] - All Locations) Patient Can Go To The Location Of Their Choice, 02/24/2023 16:48:01 02/25/2002/24/2023 COMPL ETE CBC WITH DIFF lymph # 2.8 K/mm3 (0.8-3 .1) Not Available [facility] ([facility] Order[facility] - All Locations) Patient Can Go To The Location Of Their Choice, 02/24/2023 16:48:01 02/25/2002/24/2023 COMPL ETE CBC WITH DIFF mono# 0.4 K/mm3 (0.4-0 .9) Not Available [facility] ([facility] Order[facility] - All Locations) Patient Can Go To The Location Of Their Choice, 02/24/2023 16:48:01 02/25/2002/24/2023 COMPL ETE CBC WITH DIFF eo # 0.2 K/mm3 (0.0-0 .4) Not Available [facility] ([facility] Order[facility] - All Locations) Patient Can Go To The Location Of Their Choice, [id number] 02/24/2023 16:48:01 02/25/2002/24/2023 COMPL ETE CBC WITH DIFF baso # 0.1 K/mm3 (0.0-0 .1) Not Available [facility] ([facility] Order[facility] - All Locations) Patient Can Go To The Location Of Their Choice, 02/24/2023 16:48:01 02/25/2002/24/2023 COMPL ETE CBC WITH DIFF abs. imm gran 0.0 K/mm3 Not Available [facility] ([facility] Order[facility] - All Locations) Patient Can Go To The Location Of Their Choice, 02/24/2023 16:48:01 02/25/2002/24/2023 COMPL ETE CBC WITH DIFF neut 36.8 % (44-76 ) low Not Available [facility] ([facility] Order[facility] - All Locations) Patient Can Go To The Location Of Their Choice, 02/24/2023 16:48:01 02/25/2002/24/2023 COMPL ETE CBC WITH DIFF lymph 50.3 % (15-43 ) high Not Available [facility] ([facility] Ordering - All Locations) Patient Can Go To The Location Of Their Choice, 02/24/2023 16:48:01 02/25/2002/24/2023 COMPL ETE CBC WITH DIFF monocyte 7.4 % (4.5-1 0.5) Not Available [facility] ([facility] Order[facility] - All Locations) Patient Can Go To The Location Of Their Choice, 02/24/2023 16:48:01 02/25/2002/24/2023 COMPL ETE CBC WITH DIFF eo 4.2 % (0-6) Not Available [facility] ([facility] Order[facility] - All Locations) Patient Can Go To The Location Of Their Choice, 02/24/2023 16:48:01 02/25/2002/24/2023 COMPL ETE CBC WITH DIFF baso 0.9 % (0-2) Not Available [facility] ([facility] Order[facility] - All Locations) Patient Can Go To The Location Of Their Choice, [id number] 02/24/2023 16:48:01 02/25/20 23 02/24/2023 COMPL ETE CBC WITH DIFF imm gran 0.4 % Not Available [facility] ([facility] Order[facility] - All Locations) Patient Can Go To The Location Of Their Choice, [id number] 02/24/2023 16:48:01 11/06/1911/06/2024 TSH+F REE T4 TSH 4.570 uIU/m L 0.450- 4.500 above high normal Not Available [facility] ([facility]) [address] [place], [address], 11/06/2024 08:08:22 11/06/1911/06/2024 TSH+F REE T4 T4,free(dire ct) 0.56 NG/dL 0.82-1 .77 below low normal Not Available [facility] ([facility]) [address] [place], [address], 11/06/2024 08:08:22 11/06/19 25 11/06/2024 CBC WITH DIFFE RENTI AL/PL ATELE T WBC 5.1 x10e3 /uL 3.4-10 .8 normal Not Available [facility] ([facility]) [address] [place], [address], 11/06/2024 08:08:23 11/06/1911/06/2024 CBC WITH DIFFE RENTI AL/PL ATELE T RBC 4.31 x10e6 /uL 3.77-5 .28 normal Not Available [facility] ([facility]) [address] [place], [address], 11/06/2024 08:08:23 11/06/19 25 11/06/2024 CBC WITH DIFFE RENTI AL/PL ATELE T hemoglobin 12.7 g/dL 11.1-1 5.9 normal Not Available [facility] ([facility]) [address] [place], [address], 11/06/2024 08:08:23 11/06/19 25 11/06/2024 CBC WITH DIFFE RENTI AL/PL ATELE T hematocrit 38.8 % 34.0-4 6.6 normal Not Available [facility] ([facility]) [address] [place], [address], 11/06/2024 08:08:23 11/06/19 25 11/06/2024 CBC WITH DIFFE RENTI AL/PL ATELE T MCV 90 fL 79-97 normal Not Available [facility] ([facility]) [address] [place], [address], 11/06/2024 08:08:23 11/06/19 25 11/06/2024 CBC WITH DIFFE RENTI AL/PL ATELE T MCH 29.5 pg 26.6-3 3.0 normal Not Available [facility] ([facility]) [address] [place], [address], 11/06/2024 08:08:23 11/06/19 25 11/06/2024 CBC WITH DIFFE RENTI AL/PL ATELE T MCHC 32.7 g/dL 31.5-3 5.7 normal Not Available [facility] ([facility]) [address] [place], [address], 11/06/2024 08:08:23 11/06/1911/06/2024 CBC WITH DIFFE RENTI AL/PL ATELE T RDW 12.5 % 11.7-1 5.4 Not Available [facility] ([facility]) [address] [place], [address], 11/06/2024 08:08:23 11/06/19 25 11/06/2024 CBC WITH DIFFE RENTI AL/PL ATELE T platelets 323 x10e3 /uL 150-45 0 normal Not Available [facility] ([facility]) [address] [place], [address], 11/06/2024 08:08:23 11/06/19 25 11/06/2024 CBC WITH DIFFE RENTI AL/PL ATELE T neutrophils 42 % not estab. normal Not Available [facility] ([facility]) [address] [facility], [place], [address], 11/06/2024 08:08:23 11/06/19 25 11/06/2024 CBC WITH DIFFE RENTI AL/PL ATELE T lymphs 46 % not estab. normal Not Available [facility] ([facility]) [address] [facility], [place], [address], 11/06/2024 08:08:23 11/06/19 25 11/06/2024 CBC WITH DIFFE RENTI AL/PL ATELE T monocytes 7 % not estab. normal Not Available [facility] ([facility]) [address] [facility], [place], [address], 11/06/2024 08:08:23 11/06/19 25 11/06/2024 CBC WITH DIFFE RENTI AL/PL ATELE T eos 4 % not estab. normal Not Available [facility] ([facility]) [address] [facility], [place], [address], 11/06/2024 08:08:23 11/06/19 25 11/06/2024 CBC WITH DIFFE RENTI AL/PL ATELE T basos 1 % not estab. normal Not Available [facility] ([facility]) [address] [facility], [place], [address], 11/06/2024 08:08:23 11/06/19 25 11/06/2024 CBC WITH DIFFE RENTI AL/PL ATELE T immature cells DOCK GUARD Not Available [facility] ([facility]) [address] [facility], [place], [address], 11/06/2024 08:08:23 11/06/19 25 11/06/2024 CBC WITH DIFFE RENTI AL/PL ATELE T neutrophils (absolute) 2.2 x10e3 /uL 1.4-7. 0 normal Not Available [facility] ([facility]) [address] [place], [address], 11/06/2024 08:08:23 11/06/19 25 11/06/2024 CBC WITH DIFFE RENTI AL/PL ATELE T lymphs (absolute) 2.3 x10e3 /uL 0.7-3. 1 normal Not Available [facility] ([facility]) [address] [facility], [place], [address], 11/06/2024 08:08:23 11/06/19 25 11/06/2024 CBC WITH DIFFE RENTI AL/PL ATELE T monocytes(ab solute) 0.3 x10e3 /uL 0.1-0. 9 normal Not Available [facility] ([facility]) [address] [facility], [place], [address], 11/06/2024 08:08:23 11/06/19 25 11/06/2024 CBC WITH DIFFE RENTI AL/PL ATELE T eos (absolute) 0.2 x10e3 /uL 0.0-0. 4 normal Not Available [facility] ([facility]) [address] [place], [address], 11/06/2024 08:08:23 11/06/19 25 11/06/2024 CBC WITH DIFFE RENTI AL/PL ATELE T baso (absolute) 0.0 x10e3 /uL 0.0-0. 2 normal Not Available [facility] ([facility]) [address] [place], [address], 11/06/2024 08:08:23 11/06/19 25 11/06/2024 CBC WITH DIFFE RENTI AL/PL ATELE T immature granulocytes 0 % not estab. Not Available [facility] ([facility]) [address] [place], [address], 11/06/2024 08:08:23 11/06/19 25 11/06/2024 CBC WITH DIFFE RENTI AL/PL ATELE T immature grans (abs) 0.0 x10e3 /uL 0.0-0. 1 Not Available [facility] ([facility]) [address] [facility], [place], [address], 11/06/2024 08:08:23 11/06/19 25 11/06/2024 CBC WITH DIFFE RENTI AL/PL ATELE T NRBC DOCK GUARD Not Available [facility] ([facility]) [address] [facility], [place], [address], 11/06/2024 08:08:23 11/06/19 25 11/06/2024 CBC WITH DIFFE RENTI AL/PL ATELE T hematology comments: DOCK GUARD Not Available [facility] ([facility]) [address] [facility], [place], [address], 11/06/2024 08:08:23 11/06/19 25 11/06/2024 COMP. METAB OLIC PANEL (14) glucose 92 mg/dL 70-99 normal Not Available [facility] ([facility]) [address] [facility], [place], [address], 11/06/2024 08:08:23 11/06/19 25 11/06/2024 COMP. METAB OLIC PANEL (14) BUN 13 mg/dL 8-27 normal Not Available [facility] ([facility]) [address] [facility], [place], [address], 11/06/2024 08:08:23 11/06/19 25 11/06/2024 COMP. METAB OLIC PANEL (14) creatinine 0.99 mg/dL 0.57-1 .00 normal Not Available [facility] ([facility]) [address] [facility], [place], [address], 11/06/2024 08:08:23 11/06/19 25 11/06/2024 COMP. METAB OLIC PANEL (14) eGFR 63 mL/mi n/1.7 3 >59 normal Not Available [facility] ([facility]) [address] [place], [address], 11/06/2024 08:08:23 11/06/19 25 11/06/2024 COMP. METAB OLIC PANEL (14) BUN/creatini ne ratio 13 12-28 normal Not Available [facility] ([facility]) [address] [facility], [place], [address], 11/06/2024 08:08:23 11/06/19 25 11/06/2024 COMP. METAB OLIC PANEL (14) sodium 138 mmol/ L 134-14 4 normal Not Available [facility] ([facility]) [address] [facility], [place], [address], 11/06/2024 08:08:23 11/06/19 25 11/06/2024 COMP. METAB OLIC PANEL (14) potassium 4.1 mmol/ L 3.5-5. 2 normal Not Available [facility] ([facility]) [address] [place], [address], 11/06/2024 08:08:23 11/06/19 25 11/06/2024 COMP. METAB OLIC PANEL (14) chloride 100 mmol/ L 96-106 normal Not Available [facility] ([facility]) [address] [place], [address], 11/06/2024 08:08:23 11/06/19 25 11/06/2024 COMP. METAB OLIC PANEL (14) carbon dioxide, total 21 mmol/ L 20-29 normal Not Available [facility] ([facility]) [address] [place], [address], 11/06/2024 08:08:23 11/06/19 25 11/06/2024 COMP. METAB OLIC PANEL (14) calcium 9.3 mg/dL 8.7-10 .3 normal Not Available [facility] ([facility]) [address] [place] [place], [address], 11/06/2024 08:08:23 11/06/19 25 11/06/2024 COMP. METAB OLIC PANEL (14) protein, total 7.0 g/dL 6.0-8. 5 normal Not Available [facility] ([facility]) [address] [place] [place], [address], 11/06/2024 08:08:23 11/06/19 25 11/06/2024 COMP. METAB OLIC PANEL (14) albumin 4.6 g/dL 3.9-4. 9 normal Not Available [facility] ([facility]) [address] [facility] [place], [address], 11/06/2024 08:08:23 11/06/19 25 11/06/2024 COMP. METAB OLIC PANEL (14) globulin, total 2.4 g/dL 1.5-4. 5 Not Available [facility] ([facility]) [address] [place], [address], 11/06/2024 08:08:23 11/06/19 25 11/06/2024 COMP. METAB OLIC PANEL (14) bilirubin, total 0.4 mg/dL 0.0-1. 2 normal Not Available [facility] ([facility]) [address] [place] [place], [address], 11/06/2024 08:08:23 11/06/19 25 11/06/2024 COMP. METAB OLIC PANEL (14) alkaline phosphatase 75 IU/L 44-121 normal Not Available [facility] ([facility]) [address] [place] [place], [address], 11/06/2024 08:08:23 11/06/19 25 11/06/2024 COMP. METAB OLIC PANEL (14) AST (SGOT) 22 IU/L 0-40 normal Not Available [facility] ([facility]) [address] [place], [address], 11/06/2024 08:08:23 11/06/19 25 11/06/2024 COMP. METAB OLIC PANEL (14) ALT (SGPT) 18 IU/L 0-32 normal Not Available [facility] ([facility]) [address] [place], [address], 11/06/2024 08:08:23 11/06/19 25 11/06/2024 LIPID PANEL cholesterol, total 244 mg/dL 100-19 9 above high normal Not Available [facility] ([facility]) [address] [place], [address], 11/06/2024 08:08:24 11/06/19 25 11/06/2024 LIPID PANEL triglyceride s 280 mg/dL 0-149 above high normal Not Available [facility] ([facility]) [address] [place], [address], 11/06/2024 08:08:24 11/06/19 25 11/06/2024 LIPID PANEL HDL cholesterol 34 mg/dL >39 below low normal Not Available [facility] ([facility]) [address] [place], [address], 11/06/2024 08:08:24 11/06/19 25 11/06/2024 LIPID PANEL VLDL cholesterol rosanna 52 mg/dL 5-40 above high normal Not Available [facility] ([facility]) [address] [place], [address], 11/06/2024 08:08:24 11/06/19 25 11/06/2024 LIPID PANEL LDL chol calc ([facility]) 158 mg/dL 0-99 above high normal Not Available [facility] ([facility]) [address] [place], [address], 11/06/2024 08:08:24 11/06/19 25 11/06/2024 LIPID PANEL LDL calc 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 The Endoc rine Socie ty went on to furth er defin e vitam in D insuf ficie ncy as a level betwe en 21 and 29 ng/mL (2). 1. IOM (Inst itute of Medic ine). 2010. Lisette ry refer ence petar es for calci um and D. Tessa headley [place]: The [facility] Acade [facility] [place] [facility] Press . 2. Racquel booker MF, Marivel lopes [place], Lauren off-F errar i COLIN, et al. Evalu ation , treat ment, and preve ntion of vitam in D defic iency : an Endoc rine Socie ty clini rosanna pract ice guide line. JCEM. 2010; 96(7) :1911 -30. Not Available [facility] ([facility]) [address] [facility], [place], [address], 11/06/2024 08:08:25 11/06/1911/06/2024 PTH, INTAC T PTH, intact 41 pg/mL 15-65 normal Not Available [facility] ([facility]) [address] [facility], [place], [address], 11/06/2024 08:08:25 Result Notes None recorded. Problems Name Problem SNOMED Code Status Onset Date Resolution Date Notes Provider Name and Address Organization Details Recorded Time Pain of joint of foot 770655219 Active Not Available [facility] 10:49:34 Plain X-ray of foot abnormal 464664724 Completed 03/28/2016 Parminder Weiner MD [address] [address], [place], [address] , [facility] 6 14:55:36 Chronic anxiety 297985468 Active Not Available [facility] 0 10:49:35 Acute sinusiti s 53273336 Completed 10/12/2015 Parminder Weiner MD [address] [address], [place], [address] , [facility] 6 06:04:56 Pain of multiple joints 77498122 Active Not Available [facility] 0 10:49:35 Influenz a vaccine needed 12714936531 06 Completed 201212/30/2013 RECORDED 02/09/20 13 3:44PM BY BETSY JUNIOR MA, OFFICE VISIT Parminder Weiner MD [address] [address], [place], [address] , [facility] 6 06:04:56 Influenz a vaccine needed 36004073945 06 Completed 201212/03/2013 RECORDED 02/09/20 13 3:44PM BY BETSY JUNIOR MA, OFFICE VISIT Parminder Weiner MD [address] [address], [place], [address] , [facility] 6 06:04:56 Adult health examinat ion Completed 201212/30/2013 IMPRESSI ON: WILL UPDATE IMMUNIZA TION STATUS (TDAP UNAVAIAL ABLE) AND SCREEN BASED ON RISK FACTORS. REGULAR DENTAL CARE AND SEATBELT USE ADVISED. DISTRACT ED DRIVING DISCUSSE D. OVERDUE FOR ROUTINE COLON, BREAST AND CERVICAL CANCER SCREENIN G.; RECORDED 03/08/20 13 9:10AM BY BETSY JUNIOR MA, ANNOTATI ON/ADDEN DUM Parminder Weiner MD [address] [address], [place], [address] , [facility] 6 06:04:56 Screenin g for malignan t neoplasm of breast Completed 201212/03/2013 RECORDED 03/08/20 13 9:10AM BY BETSY JUNIOR MA, GINA ON/MARY Weiner MD [address] [facility] [address], [place], [address] , [facility] 8 14:45:10 Screenin g for malignan t neoplasm of colon Completed 201212/03/2013 IMPRESSI ON: OVERDUE, BUT REQUESTI NG DEFERRAL UNTIL OTHER ISSUES ADDRESSE D/STABIL IZED.; RECORDED 03/08/20 13 9:11AM BY BETSY JUNIOR MA, GINA ON/MARY Weiner MD [address] [facility] [address], [place], [address] , [facility] 8 14:45:16 Adult health examinat ion Completed 201212/03/2013 IMPRESSI ON: WILL UPDATE IMMUNIZA TION STATUS (TDAP UNAVAIAL ABLE) AND SCREEN BASED ON RISK FACTORS. REGULAR DENTAL CARE AND SEATBELT USE ADVISED. DISTRACT ED DRIVING DISCUSSE D. OVERDUE FOR ROUTINE COLON, BREAST AND CERVICAL CANCER SCREENIN G.; RECORDED 03/08/20 13 9:10AM BY BETSY JUNIOR MA, GINA ON/MARY Weiner MD [address] [facility] [address], [place], [address] , [facility] 6 06:04:56 Administ ration of diphther ia and tetanus vaccine Completed 201312/30/2013 RECORDED 06/07/19 14 1:29PM BY BETSY JUNIOR MA, GINA ON/MARY Weiner MD [address] [facility] [address], [place], [address] , [facility] 6 06:04:56 Administ ration of diphther ia and tetanus vaccine Completed 201312/03/2013 RECORDED 06/07/19 14 1:29PM BY BETSY JUNIOR MA, GINA ON/MARY Weiner MD [address], [place], [address] , [facility] 6 06:04:56 Acute upper respirat ory infectio n [id number] Completed 201312/30/2013 IMPRESSI ON: SUPPORTI VE/SYMPT OMATIC TX ADVISED. CALL INB/WORS E.; RECORDED 08/03/19 14 2:59PM BY BETSY JUNIOR MA, GINA ON/MARY Weiner MD [address] [facility] [address], [place], [address] , [facility] 6 06:04:56 Smooth pena [id number] Completed 201312/03/2013 IMPRESSI ON: BETTER ON RECHECK, BUT STILL TOO HIGH. WILL TITRATE ACEI DOSE AND CONTINUE TRYING TO WORK ON LOW NA DIET, REGULAR EXERCISE AND WT LOSS.; RECORDED 08/03/19 14 3:00PM BY BETSY JUNIOR MA, GINA MIDDLETON/MARY Weiner MD [address] [facility] [address], [place], [address] , [facility] 3 15:31:48 Patient status finding [id number] Completed 201312/03/2013 RECORDED 08/03/19 14 2:59PM BY BETSY JUNIOR MA, ANNOTATI ON/MARY Weiner MD [address] [facility] [address], [place], [address] , [facility] 6 06:04:56 Acute upper respirat ory infectio n [id number] Completed 201312/03/2013 IMPRESSI ON: SUPPORTI VE/SYMPT OMATIC TX ADVISED. CALL INB/WORS E.; RECORDED 08/03/19 14 2:59PM BY BETSY JUNIOR MA, GINA MIDDLETON/MARY Weiner MD [address], [place], [address] , [facility] 6 06:04:56 Screenin g for malignan t neoplasm of breast Completed 201308/14/2017 Parminder Weiner MD [address], [place], [address] , [facility] 8 14:45:10 Screenin g for malignan t neoplasm of cervix Completed 201308/14/2017 RECORDED 09/12/19 14 1:32PM BY GREGORIO EAST MA, PHONE ENCOUNTE R Parminder Weiner MD [address], [place], [address] , [facility] 8 14:41:58 Screenin g for malignan t neoplasm of colon Completed 201308/14/2017 Parminder Weiner MD [address], [place], [address] , [facility] 8 14:45:16 Screenin g for malignan t neoplasm of breast Completed 201312/30/2013 RECORDED 11/07/19 14 3:28PM BY AMINATA MIDDLETON MA, ANNOTATI ON/ADDEN DUM Parminder Weiner MD [address], [place], [address] , [facility] 8 14:45:10 Screenin g for malignan t neoplasm of cervix Completed 201312/30/2013 RECORDED 11/07/19 14 3:28PM BY AMINATA MIDDLETON MA, ANNOTATI ON/ADDEN DUM Parminder Weiner MD [address], [place], [address] , [facility] 8 14:41:58 Screenin g for malignan t neoplasm of colon Completed 201312/30/2013 RECORDED 06/18/20 14 3:28PM BY AMINATA MIDDLETON MA, ANNOTATI ON/ADDEN DUM Parminder Weiner MD [address] [facility] [address], [place], [address] , [facility] 8 14:45:16 Anxiety state [id number] Completed 201308/14/2017 IMPRESSI ON: STABLE, WELL CONTROLL ED. CONTINUE CURRENT REGIMEN. ; RECORDED 11/07/19 14 10:20PM BY PARMINDER Bustillo MD, OFFICE VISIT Parminder Weiner MD [address] [facility] [address], [place], [address] , [facility] 8 14:42:04 Allergic rhinitis 60941002 Active 2013 Not Available [facility] 0 10:49:35 Pure hypercho lesterol emia 908364148 Active 2013 Not Available [facility] 0 10:49:35 Obesity 447479380 Completed 201303/28/2016 IMPRESSI ON: POTENTIA L ADVERSE HEALTH CONSEQUE NCES DISCUSSE D. HEALTHIE R DIET AND EXERCISE HABITS ADVISED. ; RECORDED 11/07/19 14 3:28PM BY AMINATA MIDDLETON MA, OFFICE VISIT Laly saul, [facility] 1 13:08:56 Tachycar anne marie [id number] Completed 201311/24/2022 Parminder Weiner MD [address] [facility] [address], [place], [address] , [facility] 3 15:46:40 Vitamin D deficien cy 38058819 Active 2015 Not Available [facility] 0 10:49:34 Moderate recurren t major depressi on 63756032 Active 2020 Parminder Weiner MD [address] [facility] [address], [place], [address] , [facility] 1 09:11:08 Chronic kidney disease stage 3A 012607922 Active 2020 Parminder Weiner MD [address] [address], [place], [address] , [facility] 1 20:43:18 Obesity 020327623 Active 2020 Laly saul, [facility] 1 13:08:56 Hyperten sive renal disease 63723563 Active 2020 Laly Nicholsmarcial saul, [facility] 1 13:09:24 History of SARS-CoV -2 [id number] 7478383 Active 2021 Parminder Weiner MD [address] [address], [place], [address] , [facility] 2 09:16:15 Essentia l hyperten becky 27031868 Active 2021 Parminder Weiner MD [address] [address], [place], [address] , [facility] 3 15:31:48 Leukopen ia 98734290 Completed 202102/18/2022 Parminder Weiner MD [address] [address], [place], [address] , [facility] 2 10:05:04 Neuropat hy 997613243 Active 2021 Parminder Weiner MD [address] [address], [place], [address] , [facility] 2 08:41:49 Raised antinucl ear antibody 303146761 Active 2021 Parminder Weiner MD [address] [address], [place], [address] , [facility] 2 08:21:45 Subclini rosanna hypothyr oidism 69542924 Active 2021 Parminder Weiner MD [address], [place], [address] , [facility] 2 08:22:02 Peripher al nerve disease 599177258 Active 2021 Parminder Weiner MD [address], [place], [address] , [facility] 2 09:32:46 Body mass index 25-29 - overweig ht 369624117 Active 2024 Parminder Weiner MD [address], [place], [address] , [facility] 5 15:53:46 At increase d risk of cardiova scular disease 14265638194 076578 Active 2024 Parminder Weiner MD [address], [place], [address] , [facility] 5 06:19:13 Problem Notes None recorded. Procedures Surgical History Date Name Laterality Status Provider Name and Address Organization Details Recorded Time 5 Most Recent Mammogram completed Betsy Junior MA [facility] 03/28/2016 14:23:43 5 Mammogram screening completed Betsy Junior MA [facility] 03/28/2016 14:23:01 Colonoscopy completed Betsy Junior MA [facility] 03/20/2015 14:04:21 Dxa bone density karlie vrt fx completed Betsy Junior MA [facility] 03/28/2016 14:22:43 Imaging Results None recorded. Procedure Notes None recorded. Medical Equipment None Reported. Allergies Allergen ID Allergen Name Allergen Category Reaction Reaction Severity Criticality Documentation Date Start Date Code Code System Note Provider Name and Address Organization Details Recorded Time 45086 Substance with sulfonami de structure and antibacte rial mechanism of action (substanc e) medicatio n hives Not available Not available 03/20/2015 [id number] 8903 [facility]ED [facility] 14:52:31 03910 atorvasta tin medicatio n diarrhea mild Not available 05/13/20152014 81908 RxNorm MARQUITA Jefferson, [facility] 2 15:25:40 64641 pravastat in medicatio n myalgias (muscle pain) moderate Not available 05/13/2015 26464 RxNorm MARQUITA Jefferson, [facility] 2 15:25:42 06197 rosuvasta tin medicatio n myalgias (muscle pain) moderate Not available 08/21/2015 56743 2 RxNorm MARQUITA Jefferson, [facility] 2 15:25:43 30053 tramadol medicatio n nausea moderate Not available 11/08/2016 08912 RxNorm MARQUITA Jefferson [facility] 2 14:52:33 13648 sertralin e medicatio n diarrhea mild Not available 06/12/2020 84645 RxNorm Parminder Weiner MD [address], [place], [address], [facility] 4 11:25:02 78480 venlafaxi ne medicatio n other Not available Not available 02/11/2021 66559 RxNorm MARQUITA Jefferson [facility] 2 15:25:44 04951 bupropion Not available diarrhea Not available Not available 02/11/2021 63836 RxNorm MARQUITA Jefferson [facility] 2 14:52:27 64482 chlorthal idone medicatio n other Not available low 12/15/2021 2409 RxNorm manuelk carlos Weiner MD [address], [place], [address], [facility] 2 16:24:59 42117 Zofran medicatio n Not available Not available Not available 12/17/2021 73186 RxNorm burni ng legs MARQUITA Jefferson, [facility] 2 15:25:03 53766 gabapenti n medicatio n Not available Not available low 11/24/2022 02238 RxNorm leg pain Parminder Weiner MD [address] [facility] [address], [facility] [place], [address] [place] [address] 3 15:33:43 5310 Deepika medicatio n Not available Not available Not available 12/03/20132013 89857 6 RxNorm MARQUITA Jefferson [facility] 2 14:52:24 Medications Name Sig Start Date Stop Date Status Note LastModified by Organization Details LastModified Time fluconazo le 100 mg tablet TAKE 1 TABLET BY MOUTH EVERY DAY 12/17 completed Not Available Not Available Not Available clotrimaz ole 10 mg alban DISSOLVE 1 ALBAN IN MOUTH 3 TIMES A DAY 12/17 completed Not Available Not Available Not Available nystatin 100,000 unit/mL oral suspensio n Take 5 mL 4 times a day by oral route for 10 days. 02/11 completed Not Available Not Available Not Available venlafaxi ne ER 37.5 mg capsule,e xtended release 24 hr TAKE 1 CAPSULE BY MOUTH EVERY DAY 02/11 completed Not Available Not Available Not Available atorvasta tin 20 mg tablet Take 1 tablet every day by oral route. 04/24 completed diarrhea Not Available Not Available Not Available cyanocoba wil (vit B-12) 100 mcg tablet 1 tab daily orally 12/21 completed RECORDED 11/07/19 14 3:28PM BY AMINATA MIDDLETON MA, OFFICE VISIT; Not Available Not Available Not Available azithromy selvin 250 mg tablet active Not Available Not Available No t Available pravastat in 40 mg tablet Take 1 tablet every day by oral route for 30 days. active Not Available Not Available No t Available Lidocaine Viscous 2 % mucosal solution PLEASE SEE ATTACHED FOR DETAILED DIRECTIO NS 06/13 completed Not Available Not Available Not Available ofloxacin 0.3 % eye drops PLEASE SEE ATTACHED FOR DETAILED DIRECTIO NS 06/13 completed Not Available Not Available Not Available benzonata te 200 mg capsule TAKE 1 CAPSULE BY MOUTH 3 TIMES A DAY NEEDED, FOR COUGH. NOT COVERED 06/13 completed Not Available Not Available Not Available metoprolo l succinate ER 50 mg tablet,ex tended release 24 hr DAILY 08/02 completed RECORDED 08/03/19 14 3:42PM BY PARMINDER Bustillo MD, OFFICE VISIT; Not Available Not Available Not Available meloxicam 15 mg tablet TAKE 1/2 TABLET BY MOUTH TWICE A DAY WITH FOOD active Not Available Not Available No t Available clonazepa m 0.5 mg tablet DAILY NEEDED 08/22 completed Not Available Not Available Not Available sertralin e 100 mg tablet TAKE 1 TABLET BY MOUTH EVERY DAY 12/12 completed Not Available Not Available Not Available amlodipin e 2.5 mg tablet Take 1 tablet every day by oral route for 30 days. 01/11 completed Not Available Not Available Not Available acetamino phen 300 mg-codein e 30 mg tablet Take 1 tablet 3 times a day by oral route as needed for 4 days. 12/21 completed Not Available Not Available Not Available chlorthal idone 25 mg tablet TAKE 1 TABLET BY MOUTH EVERY DAY 12/15 completed hyponatr emia Not Available Not Available Not Available meloxicam 7.5 mg tablet TAKE 1 TABLET BY MOUTH TWICE A DAY NEEDED WITH FOOD 01/11 completed Not Available Not Available Not Available carbamaze pine 200 mg tablet TAKE 1 TABLET BY MOUTH AT BEDTIME 08/09 completed Not Available Not Available Not Available amoxicill in 875 mg tablet TAKE 1 TABLET BY MOUTH EVERY 12 HOURS FOR 7 DAYS 12/09 completed Not Available Not Available Not Available lorazepam 0.5 mg tablet TAKE 1 TABLET BY MOUTH TWICE A DAY NEEDED 06/13 completed Not Available Not Available Not Available amitripty line 10 mg tablet Take 1 tablet every day by oral route for 30 days. 08/09 completed Not Available Not Available Not Available oseltamiv ir 75 mg capsule TAKE 1 CAPSULE BY MOUTH TWICE A DAY FOR 5 DAYS 07/07 completed Not Available Not Available Not Available lisinopri l 10 mg tablet TAKE 1 TABLET BY MOUTH EVERY DAY active Not Available Not Available No t Available ibuprofen 200 mg tablet NEEDED 08/02 completed RECORDED 08/03/19 14 3:03PM BY BETSY JUNIOR MA, OFFICE VISIT; Not Available Not Available Not Available gabapenti n 300 mg capsule TAKE 1 CAPSULE IN THE EVENING AND AT BEDTIME FOR 90 DAYS 08/09 completed Not Available Not Available Not Available sertralin e 25 mg tablet TAKE 1 TABLET BY MOUTH EVERY DAY FOR 30 DAYS 03/06 completed Not Available Not Available Not Available capsaicin 0.025 % topical cream APPLY TO AFFECTED AREA 3 TIMES A DAY DIRECTED 08/09 completed Not Available Not Available Not Available lisinopri l 5 mg tablet active Not Available Not Available Not Available gabapenti n 100 mg capsule 08/09 completed Not Available Not Available Not Available metoprolo l succinate ER 25 mg tablet,ex tended release 24 hr active Not Available Not Available Not Available azelastin e 137 mcg (0.1 %) nasal spray 07/26 completed Not Available Not Available Not Available lovastati n 20 mg tablet TAKE 1 TABLET BY MOUTH EVERY DAY 12/21 completed Not Available Not Available Not Available diphenhyd ramine 38 mg-acetam inophen 500 mg tablet NEEDED 02/08 completed RECORDED 02/09/20 13 4:52PM BY PARMINDER Bustillo MD, OFFICE VISIT; Not Available Not Available Not Available albuterol sulfate HFA 90 mcg/actua tion aerosol inhaler INHALE 2 PUFFS EVERY 4 HOURS BY INHALATI ON ROUTE NEEDED active Not Available Not Available No t Available fluticaso ne propionat e 50 mcg/actua tion nasal spray,shi pension SPRAY 1 SPRAY BY INTRANAS AL ROUTE TWICE A DAY 07/26 completed Not Available Not Available Not Available sertralin e 50 mg tablet TAKE 1 TABLET BY MOUTH EVERY DAY active Not Available Not Available No t Available amoxicill in 875 mg-potass ium clavulana te 125 mg tablet TAKE 1 TABLET BY MOUTH TWICE A DAY FOR 7 DAYS 06/13 completed 06/13/23 Currentl y TAKEN FOR SINUS INFECTIO N Not Available Not Available Not Available coenzyme Q10 100 mg capsule TAKE 1 CAPSULE BY MOUTH EVERY DAY 10/22 completed Not Available Not Available Not Available Crestor 5 mg tablet Take 1 tablet every day by oral route for 30 days. 2014 active Not Available Not Available Not Avai lable bupropion HCl XL 150 mg 24 hr tablet, extended release Take 1 tablet every day by oral route for 90 days. 02/11 completed Not Available Not Available Not Available escitalop allan 5 mg tablet Take 1 tablet every day by oral route for 90 days. 09/01 completed Not Available Not Available Not Available duloxetin e 20 mg capsule,d elayed release TAKE 1 CAPSULE BY MOUTH EVERY DAY FOR 90 DAYS 06/13 completed Not Available Not Available Not Available duloxetin e 30 mg capsule,d elayed release TAKE 1 CAPSULE BY MOUTH EVERY DAY 10/22 completed Not Available Not Available Not Available levalbute rol HFA 45 mcg/actua tion aerosol inhaler Inhale 2 puffs every 6 hours by inhalati on route as needed for 25 days. 11/24 completed Not Available Not Available Not Available pregabali n 100 mg capsule TAKE 1 CAPSULE BY MOUTH EVERY DAY active Not Available Not Available No t Available B Complex 100 1 daily active unsure of strength Not Available Not Available Not Available iron 1 tab daily 06/13 completed Not Available Not Available Not Available Saline Nasal FOUR TIMES DAILY, NEEDED 06/14 completed RECORDED 06/18/19 14 11:36PM BY PARMINDER Bustillo MD, MEDICATI ON AUTO-DANIEL CTIVATIO N; Not Available Not Available Not Available Multivita mins 1 tab daily orally active Not Available Not Available No t Available phenyleph rine-DM-a cetaminop hen-guaif en 5 mg-10 mg-325 mg-100 mg tablet NEEDED 02/08 completed RECORDED 02/09/20 13 4:46PM BY PARMINDER Bustillo MD, OFFICE VISIT; Not Available Not Available Not Available cholecalc iferol (vitamin D3) 25 mcg (1,000 unit) tablet DAILY 07/20 completed RECORDED 11/07/19 14 3:28PM BY AMINATA MIDDLETON MA, OFFICE VISIT; Not Available Not Available Not Available Voltaren 1 % topical gel Apply 2 g every 4-6 hours by topical route as needed. 2021 active Not Available Not Available Not Avai lable Vitamin D3 50 mcg (2,000 unit) tablet TAKE 1 TABLET BY MOUTH EVERY DAY 2016 active Not Available Not Available Not Avai lable B12 1 daily active unsure of strength Not Available Not Available Not Available Fluarix Quad (PF) 60 mcg (15 mcg x 4)/0.5 mL IM syringe 03/28 completed Not Available Not Available Not Available Fluarix Quad (PF) 60 mcg (15 mcg x 4)/0.5 mL IM syringe 08/14 completed Not Available Not Available Not Available Fluzone Quad (P F) 60 mcg(15 mcgx4)/0. 5 mL intramusc ular syringe 01/11 completed Not Available Not Available Not Available Flucelvax Quad (PF) 60 mcg (15 mcg x 4)/0.5 mL IM syringe 07/12 completed Not Available Not Available Not Available cannabidi ol (CBD) oral edible Take 1 edible every day by oral route. 09/21 completed Not Available Not Available Not Available Fluzone Quad (PF) 60 mcg (15 mcg x 4)/0.5 mL IM syringe PHARMACY ADMINIST ERED 06/12 completed Not Available Not Available Not Available COVID-19 At-Home Test kit FOLLOW INSTRUCT IONS INCLUDED WITH THE PACKAGE. 11/24 completed Not Available Not Available Not Available Vitals Date Recorded Body height Body mass index (BMI) Body weight Heart rate Oxygen saturation Oxygen saturation in Arterial blood by Pulse oximetry Body temperature Systolic And Diastolic Provider Name and Address Organization Details Last Updated DateTime 5 161.29 cm 29.7 kg/m2 75996.1 g 100 /min 98 % 98 % 98.3 [degF] 146/82 mm[Hg] Lynda Garcia [facility] [place] 5 15:17:51 Date Recorded Body height Provider Name an d Address Organization Details Last Updated DateTime 07/07/2023 161.29 cm Rupa Zavaleta LPN [facility] 07/07/2023 10:55:50 Date Recorded Body height Systolic And Diastolic Provider Name and Address Organization Details Last Updated DateTime 07/26/2024 161.29 cm 110/75 mm[Hg] Rupa Zavaleta LPN [facility] 07/26/2024 12:51:48 Date Recorded Body height Body mass index (BMI) Body weight Heart rate Oxygen saturation Oxygen saturation in Arterial blood by Pulse oximetry Body temperature Systolic And Diastolic Provider Name and Address Organization Details Last Updated DateTime 5 161.29 cm 29.3 kg/m2 27491.5 2 g 97 /min 98 % 98 % 99.3 [degF] 130/70 mm[Hg] Sherry Cunningham [facility] 15:26:50 Date Recorded Body height Body mass index (BMI) Body weight Heart rate Oxygen saturation Oxygen saturation in Arterial blood by Pulse oximetry Body temperature Systolic And Diastolic Systolic And Diastolic Provider Name and Address Organization Details Last Updated DateTime 3 161.29 cm 26.7 kg/m2 21971.7 3 g 85 /min 97 % 97 % 98.4 [degF] 162/85 mm[Hg] 144/72 mm[Hg] Lynda Garcia [facility] 3 15:49:27 Social History Question Answer Notes LastModified by Organizat ion Details LastModified Time Tobacco Smoking Status Never Smoker Not Available [facility] 03/24/2020 03:36:36 Do You Have An Advance Directive? Yes HCP/ -Usman Information not available 02/18/2022 Is Blood Transfusion Acceptable In An Emergency? Yes [id number] Information not available 03/24/2020 What Is Your Level Of Caffeine Consumption? None Green Tea Information not available 11/24/2022 How Much Tobacco Do You Chew? None [id number] Information not available 03/24/2020 What Type Of Diet Are You Following? REGULAR [id number] Information not available 03/24/2020 Which Illicit Or Recreational Drugs Have You Used? None Information not available 09/21/2021 Education 12 Information not available 02/18/2022 Live Alone Or With Others? With Others , Dog (britt Martin) And 1 Bird Information not available 06/13/2024 Do You Take Precautions To Prevent Distracted Driving? Yes Information not available 03/20/2015 How Often Do You Need To Have Someone Help You When You Read Instructions, Pamphlets, Or Other Written Material From Your Doctor Or Pharmacy? Never Information not available 03/20/2015 Have You Served In The ? No Information not available 03/28/2016 Have You Or Anyone In Your Household Had Any Of The Following Symptoms In The Last 14 Days: Sore Throat, Cough, Chills, Body Aches For Unknown Reasons, Shortness Of Breath For Unknown Reasons, Loss Of Smell, Loss Of Taste, Fever At Or Greater Than 100 Degrees Fahrenheit? No Information not available 03/27/2020 Are You Or Anyone In Your Household A Health Care Provider Or Emergency Responder? No Information not available 03/27/2020 To The Best Of Your Knowledge Have You Been In Close Proximity To Any Individual Who Tested Positive For COVID-19? No Information not available 03/27/2020 *AWV ONLY* Are You Presently Prescribed Opioid Medication By PCP Or Specialist? If YES -Provider Assess The Benefit For Other, Non-opioid Pain Therapies Instead, Even If The Patient Does Not Have OUD But Is Possibly At Risk. No Information not available 03/27/2020 Have You Recently Traveled To A COVID-19 High Risk Area Or Gathering In The Last 10 Days? No Information not available 06/12/2020 What Was The Date Of Your Most Recent Tobacco Screening? 06/13/2024 Information not available 06/13/2024 How Many Children Do You Have? 3 6 Grandchildren [email or web address] Information not available 09/21/2021 Do You Use Protection During Sex? No Information not available 09/21/2021 Do You Use Your Seat Belt Or Car Seat Routinely? Yes Information not available 09/21/2021 Seat Belts Used Routinely Yes Information not available 02/18/2022 Are You Sexually Active? Yes [id number] Information not available 03/24/2020 Smoke Alarm In Home Yes Information not available 02/18/2022 Do You Have Smoke And Carbon Monoxide Detectors In Your Home? Yes Information not available 09/21/2021 At What Age Did You Start Smoking Tobacco? 1 [id number] Information not available 03/24/2020 Are You Passively Exposed To Smoke? No Information not available 03/05/2014 How Much Tobacco Do You Smoke? No [email or web address] Information not available 03/27/2020 Do You Use Sunscreen Routinely? Yes [id number] Information not available 03/24/2020 How Many Years Have You Smoked Tobacco? 0 [id number] Information not available 03/24/2020 Sex: Unknown Functional Status Question Answer Note LastModified by Organizat ion Details LastModified Time Do you use any illicit or recreational drugs? No Information not available 02/18/2022 Do you or have you ever used any other forms of tobacco or nicotine? No Information not available 02/18/2022 What is your level of alcohol consumption? None [id number] Information not available 03/24/2020 Do you or have you ever used smokeless tobacco? Never used smokeless tobacco Information not available 03/27/2020 Are you currently employed? No retired 10/2016 [id number] Information not available 03/24/2020 Are you able to walk independently without assistance or assistive devices? YESASSIST cane/walke r leanne Information not available 06/13/2024 Are you able to care for yourself independently? 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 Never used electronic cigarettes Information not available 02/18/2022 What is your exercise level? Occasional [id number] Information not available 03/24/2020 Mental Status None recorded. Family History Relationship Description Onset Age of this Age Resolved Age Notes LastModified by Organization Details LastModified Time Mother Malignant neoplastic disease 72 gallbl adder Not available 02/18/2022 08:19:11 Sister Mixed anxiety and depressive disorder Not available 2021 08:19:11 Father Squamous cell carcinoma of esophagus 78 Not available 2021 08:19:11 Son Well adult Not available 02/18/2022 08:19:11 Son Well adult Not available 02/18/2022 08:19:11 Daughter Malignant tumor of breast [email or web address] Not available 12/05 15:34:28 Unspecified Relation Obesity abolcun Not available 14:50:28 Medical History Condition Response Coronary Artery Disease N Other N Gout N Kidney Stones N Blood Diseases N Hyperthyroidism N Breast Cancer N mrsa exposure N Hypothyroidism N Depression Y COPD N Lung Disease N Developmental or Behavioral Disorders N Defects or Inherited Disease N Breast Problem N Anesthesia Complications N Headaches/Migraines N Varicose Veins N Anxiety Disorder Y Muscle, Joint, or Bone Problems Y Obesity Y Vision or Eye Problems N Arthritis Y Head Injury/Concussion N Polyps N Infertility N Mental Disorder Y Congenital Anomalies N Acid Reflux (GERD) N Cancer N Stroke N ADHD N Endometriosis N High Cholesterol Y Liver Disease N Headaches N Fibromyalgia N Kidney Disease N Heart Problems N Ear or Hearing Problems N Hospitalizations N Thyroid Problems N GI Problems N Developmental Delay N Acne N Skin Problems N Eating Disorder N Anemia N Constipation N Bladder Problems N Mental Illness N Ovarian Cancer N Diabetes N Bedwetting N Blood Transfusions N Seizures/Epilepsy N Heart Problems/Murmur N Tuberculosis N AIDS/HIV N Congestive Heart Failure (CHF) N Eczema N Diverticulitis N Abuse/Domestic Violence N Asthma N Allergies Y Reflux/GERD N Hepatitis N Heart Disease N Pulmonary Embolism N Hypertension Y Chicken Pox N Autism Spectrum Disorder (ASD) N Osteoporosis N Gynecological History Statement/Question Response Date of Last Pap Smear Most Recent Mammogram 03/20/2015 Date of Last Colonoscopy Most Recent Bone Density Obstetrics History GPAL:G 0 P 0 0 0 0 Immunizations Vaccine Type Date Status Note Provider Nam e and Address Organization Details Recorded Time Influenza, split virus, quadrivalent, preservative 6 completed Not Available [facility] 07/07/2023 10:20:48 Influenza, split virus, quadrivalent, preservative 7 completed Not Available [facility] 07/07/2023 10:20:48 Influenza, MDCK, quadrivalent, PF 9 completed [address] Junior [facility] 09/21/2021 14:51:00 Influenza, split virus, quadrivalent, PF 0 completed MARQUITA Schaefer, [facility] 12/17/2021 08:41:19 COVID-19, mRNA, LNP-S, PF, 100 mcg/0.5mL dose or 50 mcg/0.25mL dose 1 completed MARQUITA Jefferson, [facility] 09/21/2021 14:51:00 COVID-19, mRNA, LNP-S, PF, 100 mcg/0.5mL dose or 50 mcg/0.25mL dose 1 completed MARQUITA Jefferson, [facility] 09/21/2021 14:51:00 Influenza, split virus, quadrivalent, PF 7 completed MARQUITA Jefferson [facility] 09/21/2021 14:51:00 Influenza, split virus, quadrivalent, PF 8 completed MARQUITA Jefferson, [facility] 09/21/2021 14:51:00 Influenza, split virus, quadrivalent, PF 6 completed MARQUITA Jefferson, [facility] 09/21/2021 14:51:00 Influenza, split virus, trivalent, PF 4 completed MARQUITA Schaefer, [facility] 12/17/2021 08:41:19 Influenza, split virus, quadrivalent, PF 5 completed MARQUITA Schaefer, [facility] 12/17/2021 08:41:19 influenza, seasonal, intradermal, preservative free 3 completed Erika Choekrystle saul, [facility] 04/20/2020 11:21:54 Tdap 3 completed Erika Choe kg, [facility] 04/20/2020 11:21:54 Td (adult), 2 Lf tetanus toxoid, preservative free, adsorbed 3 completed Parminder Weiner MD [address], [place], [address], [facility] [place] 12/21/2022 21:00:15 Influenza, split virus, quadrivalent, PF 3 completed Parminder Weiner MD [address] [address], [place], [address], [facility] [place] 03/10/2023 07:05:24 Past Encounters Encounter ID Performer Location Encounter Start Date Encounter Closed Date Diagnosis/Indication Diagnosis SNOMED-CT Code Diagnosis ICD10 Code Diagnosis IMO Codes Diagnosis Note [id number] [facility] [address] [facility] [place] [address] 02/08/2013 00:00:00 [id number] auto[facility] erce [address] [facility] [place] [address] 03/11/2013 00:00:00 [id number] auto[facility] erce [address] [facility] [place] [address] 04/24/2013 00:00:00 [id number] auto[facility]Comm erce [address] [facility] [place] [address] 06/07/2013 00:00:00 [id number] auto[facility]Comm erce [address] [facility] [place] [address] 08/02/2013 00:00:00 [id number] [facility] er[facility] [address] [facility] [place] [address] 11/06/2013 00:00:00 [id number] Parminder Weiner MD Main Office [address] [facility] [address] [place] [address] 03/05/2014 14:39:04 03/05/2014 15:59:49 Adult health examination [id number] Will update immunizati on status and screen based on risk factors. Regular dental and ophtho care advised as well as sunscreen and seatbelt use. Distracted driving discussed. Over due for breast, colon and cervical cancer screening. Advance directives in place. Needs infl uenza immunization 186071303 Allergic rhinitis 14581704 Screening for malignant neoplasm of breast 044810554 Screening for malignant neoplasm of cervix 948962392 Screening for malignant neoplasm of colon 222165918 Essential hypertension 99252546 Fair control on recheck. Wt loss and low Na diet advised. Depressive disorder 00035031 Stable, continue current regimen. Will refer for counseling . Pure hypercholesterolemia 252513466 Will reassess and discuss tx based on overal CV risk. [id number] Parminder Weiner MD Main Office [address] [place] [address] 08/22/2014 08:46:15 08/22/2014 09:30:04 Essential hypertension 35173515 Fair control on recheck. Wt loss and low Na diet advised. Pure hypercholesterolemia 665811153 10 yr CV risk 7 %, wants to defer statin therapy. Anxiety state 873538703 Un changed with SSRI and pt perceives side effects. Will d/c, continue PRN anxiolytic for now. [id number] Parminder Weiner MD Main Office [address] [place] [address] 12/11/2014 14:15:43 12/11/2014 15:04:09 Essential hypertension 51428824 Well controlled . Continue current regimen. Anxiety state 720087263 We ll controlled . Continue current regimen. Pain of joint of foot 973488621 Will image to rule out fracture. Refer to ortho for possible orthotics to help with exercise. [id number] Parminder Weiner MD Main Office [address] [place] [address] 03/20/2015 13:45:29 03/20/2015 14:52:01 Adult health examination 174044726 Z00.00 Immunizati on status updated will screen based on risk factors. Regular dental and ophtho care advised as well as sunscreen and seatbelt use. Distracted driving discussed. Over due for breast, colon and cervical cancer screening which she is very anxiouds about having done but understand s potnetial health consequenc es. Advance directives in place. Needs infl uenza immunization 111651272 Z23 Screening for malignant neoplasm of breast 398840306 Z12.39 Screening for malignant neoplasm of cervix 900964434 Z12.4 Info provided to pt to schedule xuan. Screening for malignant neoplasm of colon 287272129 Z12.11 Essential hypertension 36171958 I10 Fair control on recheck. Pure hypercholesterolemia 520234297 E78.0 Will reassess and discuss tx based on overall CV risk. Body mass index 30+ - obesity 911845063 E66.9 Chronic anxiety 02951591 9 F41.9 Stable, continue current regimen. [id number] Parminder Weiner MD Main Office [address] [facility] [address] [place] [address] 08/21/2015 14:53:18 08/21/2015 15:55:33 Essential hypertension 76857908 I10 Fair control on recheck. Anxiety state 660850236 F41.1 Having some attention difficulti es and wants to try buproprion . Will need to monitor BP closely after starting. Common/ser ious potential side effects discussed. Pt advised to call with any problems. Pure hypercholesterolemia 547143243 E78.0 Will reassess and discuss trying a different statin if CV risk still warrants tx. Pt has lab orders. Acute sinusitis 12096676 J01.90 History and exam findings raises concern for bacterial process. Call inb/worse. [id number] Parminder Weiner MD Main Office [address] [facility] [address] [place] [address] 10/05/2015 14:42:51 10/05/2015 15:48:33 Essential hypertension 75460477 I10 Fair control on recheck in context of white coat effect. Will continue current regimen and monitor. Anxiety state 924509953 F41.1 Depressive disorder 3548 9007 F32.9 Stable, continue current regimen. Pure hypercholesterolemia 186083772 E78.0 Will reassess and discuss trying a different statin if CV risk still warrants tx. Pt has lab orders. Pain of mu ltiple joints 05391716 M25.50 Has risk factors for osteomalac ia. Pain of joint of foot 27 2005846 M79.671 Try PRN NSAID. Pt advised of common/ser ious potential side effects and to call with any problems. Will need to f/u with podiatry if persistent /worse. [id number] Parminder Weiner MD Main Office [address] [facility] [address] [place] [address] 03/28/2016 14:15:27 03/28/2016 15:20:05 Adult health examination 479232323 Z00.01 Immunizati on status updated will screen based on risk factors. Regular dental and ophtho care advised as well as sunscreen and seat belt use. Distracted driving discussed. Over due for breast, colon and cervical cancer screening which she is very anxious about having done but understand s potential health consequenc es to contiued deferral. Advance directives in place. Body mass index 30+ - obesity 984712624 E66.01 Screening for malignant neoplasm of colon 546925340 Z12.11 Screening for malignant neoplasm of cervix 589376499 Z12.4 Info provided to pt to schedule xuan. Pure hypercholesterolemia 895919042 E78.01 WIll see if lovastatin is tolerated. Advised to call with any problems. Chronic anxiety 39225405 9 F41.9 Stable, continue current regimen. Vitamin D deficiency 347 49330 E55.9 Will titrate dose based on recent level. Essential hypertension 21141386 I10 Not at goal. Advised to resume diuretic. [id number] Parminder Weiner MD Main Office [address] [facility] [address] [facility] [place] [address] 07/20/2016 14:38:38 07/20/2016 15:31:51 Anxiety state 253691437 F41.1 Essential hypertension 09099642 I10 Well controlled . Continue currnet regimen. 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 Pure hypercholesterolemia 073712588 E78.01 Will see how effective lovastatin is. Vitamin D deficiency 347 04582 E55.9 Will reassess level on current supplement dose. [id number] IGGY Guaman Main Office [address] [facility] [address] [place] [address] 11/08/2016 15:09:39 11/08/2016 15:42:18 Pain of multiple joints 01315184 M25.50 exposed at work to parvovirus , she has had a fever up until last week, + joint pain and swelling susanna in hands, slight rash to chest- not itchy. Will check ab and CBC, she has been off her statin as she does not want to make sx worse. hydration, rest, tylenol/ iburpofen as needed, tylenol#3 for sleep as needed. Joint sx usually last an average of 3 weeks so she should start feeling better in the next 2 weeks. Call or return for worsening or concerns. [id number] Parminder Weiner MD Main Office [address] [place] [address] [address] [place] [address] 12/21/2016 14:41:30 12/21/2016 15:49:21 Anxiety state 355381493 F41.1 Depressive disorder 3548 9007 F32.9 Stable, continue current regimen. Essential hypertension 72974103 I10 Well controlled . Continue current regimen. Reassess CV risk factors. Chronic anxiety 81499598 9 F41.9 Stable, continue current regimen. Pain of joint of foot 27 7932207 M79.671 Continue PRN NSAID. Pt advised of common/ser ious potential side effects and to call with any problems. Will need to f/u with podiatry if persistent /worse. 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 [id number] Parminder Weiner MD Main Office [address] [facility] [address] [place] [address] 08/14/2017 14:15:13 08/14/2017 15:14:50 Adult health examination 245355169 Z00.00 Immunizati on status td, flu advised in the Fall and Shinrix via local pharmacy. Will screen based on risk factors. Regular dental and ophtho care advised as well as sunscreen and seat belt use. Distracted driving discussed. Over due for breast, colon and cervical cancer screening which she is very anxious about having done but understand s potential health consequenc es to continued deferral. Advance directives in place. Body mass index 30+ - obesity 689072817 E66.01 Z68.35 Pure hypercholesterolemia 297919253 E78.01 Will reassess and discuss tx based on CVD risk score. Tachycardia 4443885 R00. 0 Depressive disorder 3548 9007 F32.3 Stable, continue current regimen. 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 Essential hypertension 35124597 I10 Reasonable control. Continue current regimen. Reassess CVD risk factors. Generalize d anxiety disorder 67888468 F41.1 Persistent /limiting, on medication s. Possible PTSD component. Wants to see a therapist. [id number] Parminder Weiner MD Main Office [address] [place] [address] 12/05/2017 15:03:36 12/05/2017 16:00:42 Depressive disorder 95047961 F32.3 Stable, continue current regimen. Essential hypertension 81251956 I10 Fair control but not at goal. White coat effect is also a factor. Will increase diuretic dose. Chronic anxiety 74499322 9 F41.1 Stable, continue current regimen. Pure hypercholesterolemia 277346540 E78.01 Based on CVD risk score of 6.5% TLC recommende d. [id number] Parminder Weiner MD Main Office [address] [place] [address] 01/11/2019 13:44:10 01/11/2019 14:47:02 Adult health examination 132312187 Z00.00 Immunizati on status td, flu advised when available, and Shingrix via local pharmacy. Will screen based on risk factors. Regular dental and ophtho care advised as well as sunscreen and seat belt use. Distracted driving discussed. Over due for breast, colon and cervical cancer screening which she is very anxious about having done but understand s potential health consequenc es to continued deferral. Advance directives in place. Body mass index 30+ - obesity 139286440 E66.01 Z68.36 Depressive disorder 3548 9007 F32.3 Stable, continue current regimen. Screening for malignant neoplasm of colon 806730876 Z12.11 Pt continues to defer but is considerin g this year. Contact info provided. Advised to call if having any trouble. Vitamin D deficiency 347 03670 E55.9 Will reassess level on current supplement dose. Pure hypercholesterolemia 821659571 E78.01 Based on CVD risk score of 7.0% TLC recommende d. Essential hypertension 39204735 I10 Fair control but not at goal. White coat effect is also a factor. Will continue current dosing. Mild inter mittent asthma 237576336 J45.20 Well controlled based on reported rescue inhaler use. Call if requiring more than twice a week. Varicella vaccination 68 229239 Z23 Pustular folliculitis 53 809363 L01.02 [id number] Parminder Weiner MD Main Office [address] [address] [place] [address] 07/12/2019 14:23:19 07/12/2019 15:29:19 Pure hypercholesterolemia 765163608 E78.01 Based on CVD risk score of 9.1% TLC recommende d, but declined. Essential hypertension 16391392 I10 Fair control but not at goal. White coat effect and personal stressors are also factors. Will continue current dosing. Severe rec urrent major depression 7564222025 03 F33.2 Not well controlled . With possible PTSD component will ask psych for consult to see if current regimen is appropriat e/help optimizati on. [id number] Parminder Weiner MD [facility] [address] [address] [place] [address] 03/27/2020 13:01:13 03/30/2020 10:21:34 Essential hypertension 96297598 I10 Tolerating regimen well. Will acquire home monitor and call in readings. Knows to go for labs xuan and understand s risk of continued deferral given the pharmacolo gy of the medication s she is taking. Allergic rhinitis 974819 04 J30.9 Will try nasal steroid that was effective in the past. Call inb/worse. Recurrent major depression in partial remission 19948507 F33.41 Stable, continue current regimen. Vitamin D deficiency 347 07814 E55.9 Will reassess level on current supplement dose. [id number] Parminder Weiner MD [facility] [address] [place] [address] 06/12/2020 08:07:58 06/12/2020 11:43:07 Essential hypertension 16631505 I10 Tolerating regimen well. Well controlled at home. Knows to go for labs xuan and understand s risk of continued deferral given the pharmacolo gy of the medication s she is taking. Moderate r ecurrent major depression 28966433 F33.1 Stable, continue current regimen. Allergic rhinitis 809919 04 J30.9 Persistent issue, seen by allergy in the past. Declines follow up at this time, not interested in desensitiz ation therapy currently. [id number] Parminder Weiner MD Main Office [address] [facility] [address] [place] [address] 09/01/2020 14:56:31 09/01/2020 16:07:15 Adult health examination 100990340 Z00.00 Immunizati on status utd, Shingrix advised via local pharmacy. Will screen based on risk factors. Regular dental and ophtho care advised as well as sunscreen and seat belt use. Distracted driving discussed. Over due for breast, colon and cervical cancer screening which she is very anxious about having done but understand s potential health consequenc es to continued deferral. Advance directives in place. Varicella vaccination 68 475854 Z23 Pure hypercholesterolemia 894259773 E78.01 Based on CVD risk score of 8.9% TLC recommende d, but declined. Chronic anxiety 43392817 9 F41.1 Symptoms are not currently limiting. Stable, continue current regimen. Screening for malignant neoplasm of breast 327732553 Z12.39 Screening for malignant neoplasm of colon 940879251 Z12.11 Pt has continued reluctance . Willing to utilize cologuard. Advised to call if having any trouble. 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 Mild inter mittent asthma 755206739 J45.20 Well controlled based on reported rescue inhaler use. Call if requiring more than twice a week. Chronic ki dney disease stage 3A 180093050 N18.31 On ACEI. Consider dose titration if home BP values climb. Body mass index 30+ - obesity 827080594 E66.01 Z68.38 Pain in left knee 105893 2447 20662 M25.562 Try topical NSAID while waiting for ortho eval. Moderate r ecurrent major depression 49764254 F33.1 Stable, continue current regimen. Hypertensi ve renal disease 71278568 I12.9 Tolerating regimen well. Well controlled at home. [id number] Parminder Weiner MD [facility] [address] [facility] [address] [place] [address] 10/09/2020 08:48:21 10/09/2020 12:50:26 Moderate recurrent major depression 80083915 F33.1 Not well controlled without SSRI and buproprion alone seems to be more activating and possibly contributi ng to her HTN. Will transition to venlafaxin e and titrate as tolerated to goal symptom control. Advised to go to QOD dosing on buproprion then stop after 1-2 weeks. Call with any problems. Advised to establish with therapist again which she will look into. [id number] Ronald Pinzon PA-C [facility] [address] [place] [address] 10/13/2020 08:38:38 10/13/2020 12:49:00 Candidiasis of mouth 97350534 B37.0 rx c nystatin S&S, see below as well Seasonal a llergic rhinitis 855828106 J30.2 advised pt to stop flonase, cont claritin, use nasal saline spray often -- then do above swish/swal low [id number] Parminder Weiner MD Main Office [address] [place] [address] 02/11/2021 12:55:43 02/11/2021 13:58:05 Hypertensive renal disease 20968988 I12.9 Tolerating regimen well. Well controlled at home. Moderate r ecurrent major depression 53317524 F33.1 Doing better with recent developmen ts with her daughter. Overall coping well without meds Chronic anxiety 59024607 9 F41.1 Symptoms are not currently limiting. Stable, continue current regimen. Chronic ki dney disease stage 3A 517364740 N18.31 On ACEI. Consider dose titration if home BP values climb. [id number] Parminder Weinre MD Main Office [address] [place] [address] 09/21/2021 14:45:02 09/21/2021 15:56:13 Adult health examination 680725599 Z00.00 Immunizati on status utd, Shingrix advised via local pharmacy. Will screen based on risk factors. Regular dental and ophtho care advised as well as sunscreen and seat belt use. Distracted driving discussed. Over due for breast, colon and cervical cancer screening which she is very anxious about having done but understand s potential health consequenc es to continued deferral. Advance directives in place. Varicella vaccination 68 183457 Z23 Chronic anxiety 65182619 9 F41.1 Symptoms are not currently limiting. Stable, continue current regimen. Hypertensi ve renal disease 64687497 I12.9 Tolerating regimen well. Well controlled at home. Moderate r ecurrent major depression 85888168 F33.1 Off of SSRI and symptoms fairly well controlled . Will see if duloxetine helps with this and her foot neuritis. Pure hypercholesterolemia 292335562 E78.01 Based on CVD risk score of 8.9% TLC recommende d, but declined. Will reassess. Screening for malignant neoplasm of colon 003678134 Z12.11 Pt has continued reluctance . Willing to utilize cologuard but did not do it last year. Advised to call if having any trouble. 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 Chronic ki dney disease stage 3A 195236564 N18.31 Well controlled on ACEI. Body mass index 30+ - obesity 033838969 E66.01 Z68.32 Has made wt loss progress with calorie restrictio n. Efforts lauded. Pain in left knee 704853 5237 66393 M25.562 Using with good effect. Peripheral neuritis 1281 55966 G62.9 Will titrate as tolerated to see if helpful with neuritis and mood. [id number] Parminder Weiner MD [facility] [address] [facility] [address] [place] [address] 10/22/2021 08:17:11 10/22/2021 11:01:36 Hypertensive renal disease 58161105 I12.9 Tolerating regimen well. Well controlled at home. Moderate r ecurrent major depression 54471695 F33.1 Sensitive to most SSRI/SNRI' s currently coping well. Will monitor. Pain of joint of foot 27 7300092 M79.671 Continue PRN topical NSAID. Declines any additional neuropathi c pain med trials at this time. See if topical capsaicin helps. Will need to f/u with podiatry if persistent /worse. Chronic ki dney disease stage 3A 644590599 N18.31 Well controlled on ACEI. [id number] Parminder Weiner MD Main Office 36[address] [facility] [address] [place] [address] 12/14/2021 08:42:24 12/27/2021 09:39:25 [id number] Parminder Weiner MD [facility] 3640 [facility] [address] [place] [address] 12/17/2021 07:46:46 12/17/2021 10:23:42 History of SARS-CoV-2 2853869096 25207731 Z86.16 Clinically improved, except for some cough. Will check CBC and other labs that she is due for. Acute kidn ey injury due to hypovolemia 676716670 E86.1 Resolved with diarrhea and stopping ACEI/diure tic. Will go for labs ordered on September xuan. Essential hypertension 30066751 I10 Tolerating regimen well. Well controlled at home. Knows to go for labs xuan and understand s risk of continued deferral given the pharmacolo gy of the medication s she is taking. Leukopenia 74737769 D72. 819 Has CBC order pending. [id number] Parminder Weiner MD Main Office [address] [address] [place] [address] 01/11/2022 14:54:38 01/17/2022 10:14:20 Moderate recurrent major depression 98184543 F33.1 Has been sensitive to most SSRI/SNRI' s, and unwilling to revisit another rx trial at this time. Chronic anxiety 48256168 9 F41.1 Symptoms worse secondary to adjustment disorder. Will try one month of higher anxiolytic dose and monitor. If improvemen t doesn't occur will need to revisit more appropriat e medication options. Adjustment disorder with mixed emotional features 21790717 F43.23 Secondary to recent COVID. Will monitor. [id number] Parminder Weiner MD [facility] [address] [facility] [address] [place] [address] 02/04/2022 08:50:32 02/10/2022 12:48:31 Cramp in lower limb 032132476 R25.2 Needs assessment for metabolic abnormalit ies as well as further elaboratio n on her previously diagnosed neuropathy . Has not gone for any of the labs needed to ascertain her renal function post COVID 19 diarrheal symptoms and NORMAN. Neuropathy 991891616 G62 .9 Will expand a metabolic evaluation to elucidate etiology and involve neurology. Non-compli ant behavior 805593295 R46.89 Pt counseled on need to complete/f ollow up with labs as ordered. [id number] [facility]minder [facility] [address] [facility] [address] [place] [address] 02/18/2022 08:18:51 02/18/2022 10:26:22 Chronic kidney disease stage 3A 229609427 N18.31 Home BP well controlled on ACEI. Pain of mu ltiple joints 21462617 M25.50 ? OA vs inflammato ry arthropath y. See what rheum thinks. Raised ant inuclear antibody 525919233 R76.0 With other symptoms/c omorbiditi es rheum referral appropriat e to help rule out lupus, scleroderm a, and other autoimmune disease. Subclinica l hypothyroidism 72337192 E02 Supplement ation not warranted based labs and symptoms. Will monitor an check thyroid antibodies with next round of labs. Vitamin D deficiency 347 43772 E55.9 Well controlled on current dose. Neuropathy 973649275 G62 .9 Working on neuro appt. [id number] Parminder Weiner [facility] [address] [facility] [address] [place] [address] 08/09/2022 08:30:55 08/09/2022 12:04:49 Neuropathy 256259288 G62.9 fol by neuology - no sig help c gbn (or elavil), sounds like it made it worse - so stopped - as per pt neuro stated was ok to rx c benzo - and it seems to be working great - cont as dir. --- see below Chronic anxiety 27776308 9 F41.9 [id number] Parminder Weiner MD Main Office [address] [facility] [address] [place] [address] 11/24/2022 15:02:47 11/24/2022 16:04:09 Adult health examination 938045126 Z00.00 Immunizati on status updated, Shingrix advised via local pharmacy as well as flu in the Fall. Will screen based on risk factors. Regular dental and ophtho care advised as well as sunscreen and seat belt use. Distracted driving discussed. Over due for breast, colon and cervical cancer screening which she is very anxious about having done but understand s potential health consequenc es to continued deferral. Advance directives in place. Requires a tetanus booster 499251386 Z23 Chronic ki dney disease stage 3A 326848314 N18.31 Home BP well controlled on ACEI. Due for routine labs. Body mass index 25-29 - overweight 250554039 E66.3 Z68.26 Chronic anxiety 30426653 9 F41.1 Symptoms are not currently limiting. Stable, continue current regimen. Hypertensi ve renal disease 26417378 I12.9 Tolerating regimen well. Well controlled at home. Moderate r ecurrent major depression 25526894 F33.1 Back on SSRI via Dr. Rubio Pure hypercholesterolemia 160768191 E78.01 Based on CVD risk score of 8.9% TLC recommende d, but declined. Will reassess. Screening for malignant neoplasm of colon 563706169 Z12.11 Pt has continued reluctance . Willing to utilize cologuard but did not do it last year. Advised to call if having any trouble. Screening for malignant neoplasm of breast 630342184 Z12.39 Pt declines screening, and understand s/accepts potential consequenc es. 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 Peripheral neuritis 1281 58607 G62.9 Following with neuro, will request notes and EMG reports. Varicella vaccination 68 077446 Z23 Subclinica l hypothyroidism 37267222 E02 Supplement ation not warranted based labs and symptoms. Will monitor. Essential hypertension 60732267 I10 Not under control but white coat effect a likely a contributo r. Will refer for home BP monitoring . [id number] Parminder Weiner MD Main Office [address] [facility] 207 [facility], [place] [address] 03/06/2023 15:15:23 03/06/2023 16:31:08 Hypertensive renal disease 41683481 I12.9 Not too bad today. Tolerating regimen well. Well controlled at home. Chronic anxiety 75620110 9 F41.1 Symptoms are actually fairly well controlled . Continue current regimen. Needs infl uenza immunization 336699042 Z23 Pain of bi lateral knee joints 7345351811 19508 M25.561 M25.562 Discussed xray and referral to ortho which she declines for now. Chronic sandip dney disease stage 3A 915154575 N18.31 Understand s need to avoid systemic NSAIDs, seems to be doing well with topical therapy. Will monitor. Labs currently stable. [id number] Parminder Weiner MD [facility] [address] [facility] [address] [place] [address] 07/07/2023 10:19:47 07/07/2023 12:26:46 Moderate recurrent major depression 31100849 F33.[address] Rubio for neuropathy which is helping with mood but still burdened by a lot of worry. Chronic anxiety 17208714 9 F41.1 Symptoms are actually fairly well controlled . Continue current regimen. Insomnia 783534416 G47.0 0 states that it's secondary to leg pain, has gabapentin and pramipexol e from neuro but does want to use them. Pure hypercholesterolemia 822014250 E78.01 Based on CVD risk score of 11% statin therapy recommende d, but declined. Will monitor. Vitamin D deficiency 347 97112 E55.9 Well controlled on current dose. [id number] Parminder Weiner MD Main Office 36[address] [facility] 207 [place] [address] 06/13/2024 14:49:39 06/13/2024 16:04:40 Adult health examination 348176249 Z00.00 Shingrix, PCV20, and COVID booster advised via local pharmacy. Will screen based on risk factors. Regular dental and ophtho care advised as well as sunscreen and seat belt use. Distracted driving discussed. Over due for breast, colon and cervical cancer screening which she is very anxious about and adamant about not pursuing. Patient was counseled in the presence of her and both understand the potential health consequenc es to continued deferral. Advance directives in place. Influenza vaccination declined 941785015 Z28.21 Screening for malignant neoplasm of breast 824196092 Z12.39 Pt declines screening, and understand s/accepts potential consequenc es. Screening for malignant neoplasm of cervix 732217251 Z12.4 Pt declines screening, and understand s/accepts potential consequenc es. Chronic ki dney disease stage 3A 485337709 N18.31 Home BP well controlled on ACEI. Overdue for routine labs, which have been pending. She will go xuan. Body mass index 25-29 - overweight 749474122 E66.3 Z68.29 Chronic anxiety 51060259 9 F41.1 Symptoms worse, would like to try titrating dose. Hypertensi ve renal disease 97355677 I12.9 Tolerating regimen well. Well controlled at home. Moderate r ecurrent major depression 94344440 F33.1 Tolerating SSRI well, will monitor with dose titration. Pure hypercholesterolemia 979991166 E78.01 Based on CVD risk score of 12% TLC recommende d, but declined. Will reassess. Screening for malignant neoplasm of colon 062891066 Z12.11 Pt has continued reluctance . Pt declines screening, and understand s/accepts potential consequenc es. Peripheral neuritis 1281 77694 G62.9 Following with neuro. Varicella vaccination 68 472375 Z23 Subclinica l hypothyroidism 18418852 E02 Supplement ation not warranted based labs and symptoms. Will monitor. Essential hypertension 65728852 I10 Not under control but white coat effect a likely a contributo r. Continue current regimen. [id number] Parminder Weiner MD [facility] [address] [facility] [address] [place] [address] 07/26/2024 12:31:05 07/26/2024 14:25:48 Chronic anxiety 286533298 F41.1 Symptoms worse, would like to try titrating dose. Moderate r ecurrent major depression 82774783 F33.1 Tolerating current SSRI dose well, will monitor. Encouraged to connect with a therapist. Mild inter mittent asthma 426559946 J45.20 Well controlled based on reported rescue inhaler use. Call if requiring more than twice a week. Hypertensi ve renal disease 92498223 I12.9 Tolerating regimen well. Well controlled . Chronic ki dney disease stage 3A 119260712 N18.31 Home BP well controlled on ACEI. Overdue for routine labs, which have been pending. She will go August. [id number] Parminder Weiner MD Main Office 36[address] [facility] [address] [facility] [place] [address] 12/12/2024 15:17:38 12/12/2024 16:07:45 Chronic anxiety 870038893 F41.1 Well controlled on current SSRI dose, declines therapy. Administra tion of pneumococcal vaccine 13060416 Z23 Essential hypertension 91989744 I10 Well controlled , continue current regimen. Pure hypercholesterolemia 910030871 E78.01 Based on CVD risk score of 11% statin therapy recommende d, but declined. Will monitor. Health Concerns Section Related Observation LastModified by Organization Detai ls LastModified Time None Recorded Concern Status LastModified by Organization Details LastModified Time None Recorded Advance Directives Directive Y: HCP/ -Usman Payers Insurance Date Sequence Insurance Name Policy Number Policy Conenlly Covered Member ID Connelly Member ID Guarantor Name 12/12/2024 1 [place] [employer] Carolann Elfego Boris [id number] Carolann Elfego Boris 12/25/2024 2 [place] [id number] Carolann Elfego Boris [id number] Carolann Elfego Boris 08/03/2023 1 [id number] Carolann A Boris [id number] Carolann Elfego Boris Notes Date Note Type Note Provider Name and Address Organization Details Recorded Time 023 text/ht ml Musculoskeletal PainReported by PatientHPIFor location, patient reportspain radiating to the legs leftbut reportsbilateral knee. For quality, patient reportstinglinganddull. For severity, patient reportsworseningandinterference with sleep. For associated symptoms, patient reportstinglingandnumbness of the legs/feetbut reportsno fever,no weak limbs, andon incontinence. For duration, patient reportspresent for >12 months. For timing, patient reportsintermittentandpain at night.Has a history of neuropathy reportedly diagnosed by podiatry. No notes ever received. Pt still has not gone for lab work ordered in September, not even after her hospitalization in November for COVID with NORMAN/dehydration. Finally went for labs and had stable creatinine/CKD, hypothyroidism, pos ARTURO/inflammatory markers ArthritisReported by PatientHPIFor location, patient reportsknees. For severity, patient reportsconstantandimproving. For associated symptoms, patient reportsno redness,no swelling, andno fever.Getting significant relief with topical diclofenac. Anxiety/DepressionReported by PatientHPIFor quality, patient reportssymptoms improved. For severity, patient reportsdenies suicidal ideationsandable to maintain relationships. For duration, patient reportssymptoms lasting over 2 weeksandstablizing. For onset/timing, patient reportsstill present. For context, patient reportsno major life stressors. For associated symptoms, patient reportsdenies homicidal ideationsandno significant weight gain. Parminder Weiner MD [address] [facility] [address], [place], [address], [facility] 03/10/2023 07:18:37 024 text/ht ml Musculoskeletal PainReported by PatientHPIFor location, patient reportspain radiating to the legs left. For quality, patient reportstinglinganddull. For severity, patient reportsworseningandinterference with sleep. For associated symptoms, patient reportstinglingandnumbness of the legs/feetbut reportsno fever,no weak limbs, andon incontinence. For duration, patient reportspresent for >12 months. For timing, patient reportsintermittentandpain at night.Has a history of neuropathy initially diagnosed by podiatry. Following with Dr Rubio and doing overall stable. HyperlipidemiaReported by PatientHPIFor type of hyperlipidemia, patient reportscombined. For duration, patient reportschronic. For control, patient reportsusually poorly controlledandnot at goal. For compliance, patient reportsnoncompliant,noncompliant with diet, anddoes not exercise. For risk factors, patient reportsobesity. For prior tests, patient reportshighest cholesterol level: (253),highest ldl level: (171),highest triglyceride level: (205), andlowest hdl level: (41). For complications, patient reportsno coronary artery disease,no peripheral artery disease, andno cardiovascular disease.CVD risk score is currently 11% Anxiety/DepressionReported by PatientHPIFor context, patient reportsmajor life stressors. For quality, patient reportssymptoms improved. For severity, patient reportsdenies suicidal ideations,able to maintain relationships, anddoes not interfere with activities of daily living. For duration, patient reportssymptoms lasting over 2 weeks. For associated symptoms, patient reportsdenies homicidal ideationsandno isolation.Tolerating sertraline well. Parminder Weiner MD [address] [address], [place], [address], [facility] [place] 07/10/2023 08:30:44 025 text/ht ml Generic HPI TemplateReported by PatientFeels well, here for a physical, seeing ophtho and dentist regularly. Medicare Annual Wellness VisitReported by PatientSocial/Behavioral HistoryFor physical activity, patient reportsdoes not exercise on a regular basis,decreased physical activity, andpoor physical condition. For diet and nutrition, patient reportshealthy diet. For fracture risk, patient reportsno history of fractures,no recent explained fracture,no sudden unexplained fractures, andno previous musculoskeletal injuries.Mental Status:For depression risk, patient reportssignificant changes in weight. For orientation, patient reportsno disorientation to time,no disorientation to date, andno disorientation to place. For concentration and memory, patient reportsno decreased concentrating ability,no memory lapses or loss, anddoes not forget words. For speech/motor difficulties, patient reportsno speech difficulties,no difficulty expressing formulated concepts,no difficulty writing/copying,no slowed reaction time, anddoes not knock things over when trying to pick them up.Functional AbilityFor instrumental activities of daily living, patient reportsunable to to prepare meals without assistancebut reportsable to do house work with limited or no assistance,able to grocery shop with limited or no assistance,able to manage medications with limited or no assistance, andable to manage money with limited or no assistance. For home safety, patient reportsdoes not have hand bars in the bathroom/showerbut reportsno unsafe karina hazzards,no unsafe stairs,working smoke/co detectors,use of seatbelts, andreviewed sun protection. For hearing, patient reportsno loss of hearing. For vision, patient reportsno vision problems. For activities of daily living, patient reportsable to bathe with limited or no assistance,able to contol urination and bowels,able to dress with limited or no assistance,able to feed self with limited or no assistance,able to get out of chair or bed with limited or no assistance,able to groom with limited or no assistance, andable to toilet with limited or no assistance. For falls risk assessment, patient reportsno frequent falls while walking,no fall in the past year,no fall since last visit, andno dizziness/vertigo.ROS as noted in the HPI Parminder Weiner MD [address] [facility] [address], [place], [address], [facility] 06/14/2024 07:24:31 025 text/ht ml HyperlipidemiaReported by PatientHPIFor type of hyperlipidemia, patient reportscombined. For duration, patient reportschronic. For control, patient reportsusually poorly controlledandnot at goal. For compliance, patient reportsnoncompliant,noncompliant with diet, anddoes not exercise. For risk factors, patient reportsobesity. For prior tests, patient reportshighest cholesterol level: (253),highest ldl level: (171),highest triglyceride level: (205), andlowest hdl level: (41). For complications, patient reportsno coronary artery disease,no peripheral artery disease, andno cardiovascular disease.CVD risk score is currently 7.1% Anxiety/DepressionReported by PatientHPIFor context, patient reportsmajor life stressors. For quality, patient reportssymptoms improved. For severity, patient reportsdenies suicidal ideations,able to maintain relationships, anddoes not interfere with activities of daily living. For duration, patient reportssymptoms lasting over 2 weeks. For associated symptoms, patient reportsdenies homicidal ideationsandno isolation.Tolerating sertraline well. Did not increase dose to 100mg because of interaction concerns. Worried that it will effect Parminder Weiner MD [address] [facility] [address], [place], [address], [facility] 07/26/2024 13:38:15 025 text/ht ml Hypertension F/UReported by PatientHPIFor associated symptoms, patient reportsno dizziness,no lightheadedness,no chest pain,no shortness of breath,no palpitations, andno edema.Tolerating lisinopril well. HyperlipidemiaReported by PatientHPIFor type of hyperlipidemia, patient reportscombined. For duration, patient reportschronic. For control, patient reportsusually poorly controlledandnot at goal. For compliance, patient reportsnoncompliant,noncompliant with diet, anddoes not exercise. For risk factors, patient reportsobesity. For prior tests, patient reportshighest cholesterol level: (253),highest ldl level: (171),highest triglyceride level: (205), andlowest hdl level: (41). For current therapy, patient reportslast cholesterol level: (244),last ldl level: (158),last triglyceride level: (280), andlast hdl level: (34). For complications, patient reportsno coronary artery disease,no peripheral artery disease, andno cardiovascular disease.CVD risk score is currently 11.2% Anxiety/DepressionReported by PatientHPIFor context, patient reportsmajor life stressors. For quality, patient reportssymptoms improved. For severity, patient reportsdenies suicidal ideations,able to maintain relationships, anddoes not interfere with activities of daily living. For duration, patient reportssymptoms lasting over 2 weeks. For associated symptoms, patient reportsdenies homicidal ideationsandno isolation.Tolerating sertraline well. Did not increase dose to 100mg because of interaction concerns. Doing well on 50mg/day. Parminder Weiner MD [address] [address], [place], [address], [facility] 12/12/2024 23:01:06 OBGyn Episode No OBEpisode recorded.
--- OUTSIDE RECORDS SUMMARY | 2025-02-18 16:59 | XMS_ITS | Patient Health Record ---
Author Organization [facility] [place] Address [address] [place] [address] Care Team Providers Care Dog Races Manager Name Role Phone Husam ISAACS, Parminder Primary Care Provider Unavail able Julio Cesar Trinidad Unavailable [phone] Allergies Allergen (clinical drug ingredient) Drug/Non Drug Allergy documented on EMR Reaction Allergy Type Onset Date Status sulfa swelling Drug Allergy Active Reason For Referral No Information Medications Medication SIG (Take, Route, Fr equency, Duration) Notes Start Date End Date Status Lisinopril 10 MG Orally [facility] . . . 1-2x/week; Durat ion: 3-4 weeks 02/26/2015 Active Chlorthalidone Activ e Zoloft Active Work Note . . . this patient is disabled from work 01/23/15 and may return on 01/27/15; she can no longer use stairs and must use elevator 01/22/2015 [facility] . . . 2-3x/week; Durat ion: 3-4 weeks 12/22/2014 Active Problems Problem Type SNOMED Code ICD Code Onset Dates Problem Status W/U Status Risk Notes Problem Pain in right foot (351158488375 [id number]) Pain in right foot (M79.671) Active confirmed Plan Of Treatment No Information Insurance Providers Payer Name Payer Address Payer Phone Subscriber Number Group Number Insured Name Patient Relationship to Insured Coverage Start Date Coverage End Date [facility] [address] [place] [address] [id number] Carolann Escalante Self - patient is the insured Medical (General) History Medical History History ICD Code Anxiety Depression Hypertension Chicken pox Measles Mumps
== END 2025-02-18 16:28 | disposition home or self-care (01) ==
LOC: HO.HSM 15:48
PROVIDERS: PCP Pediatrics; Referring Provider Pediatrics; Visit Provider Registered Nurse
DX: G62.9 Polyneuropathy, unspecified (principal); F41.9 Anxiety disorder, unspecified; M19.90 Unspecified osteoarthritis, unspecified site
CPT/HCPCS: 99214

== ENCOUNTER → 2025-02-18 15:48 | Outpatient (BNVA) | payer MEDICARE, SELFPAY | PROVIDERS: PCP Pediatrics; Referring Provider Pediatrics; Visit Provider Registered Nurse | DX: M19.042 Primary osteoarthritis, left hand (principal); M19.041 Primary osteoarthritis, right hand; M17.0 Bilateral primary osteoarthritis of knee; G62.9 Polyneuropathy, unspecified; F41.9 Anxiety disorder, unspecified | CPT/HCPCS: 99212 ==